=== PATIENT | male | born 1945 | race Caucasian/White ===

== ENCOUNTER → 2016-09-06 | Outpatient (CLI) | payer BC ==
[~2016-09-06] MED LIST: ACT15 PO; ASPCH81 PO; FINA5TAB PO; LSN25 PO; NAPR-1169 PO; OMEG10007 PO; SIMV40TA2 PO
[2016-09-06 09:21] LABS: BASO % 0.6 %; BASO ABS # 0.05 K/uL (0-0.2); COMPLETE YES; EOS % 2.1 %; HEMATOCRIT 37.7 % (42-52); IG% 0.1 %; LYMPH % 17.6 %; LYMPH ABS # 1.37 K/uL (1.2-3.4); MEAN CELL VOLUME 75.9 fL (80-100); MEAN CORPUSCULAR HEMOGLOBIN 25.6 pg (25-34); MEAN CORPUSCULAR HGB CONC 33.7 g/dl (32-36); MEAN PLATELET VOLUME 10.4 fL (7.4-10.4); MONO % 9.9 %; NEUT % 69.7 %; PLATELET COUNT 235 K/uL (130-400); RED BLOOD COUNT 4.97 M/uL (4.7-6.1); WHITE BLOOD COUNT 7.77 K/uL (4.8-10.8)
[2016-09-06 09:40] LABS: ALT/SGPT 19 U/L (12-78); AST/SGOT 14 U/L (15-37); BLOOD UREA NITROGEN 22 mg/dl (7-18); BUN/CREATININE RATIO 18.3 (10-20); CALCIUM 8.9 mg/dl (8.5-10.1); CARBON DIOXIDE 27 mmol/L (21-32); CHLORIDE 109 mmol/L (98-107); GLUCOSE 117 mg/dl (70-99); HDL CHOLESTEROL 50 mg/dl; POTASSIUM 4.1 mmol/L (3.5-5.1); SODIUM 141 mmol/L (136-145)
[2016-09-06 09:42] LABS: ESTIMATED AVERAGE GLUCOSE 146 mg/dl; HA1C FLAG Normal (Normal)
[2016-09-06 09:53] LABS: ALB/GLOB RATIO 0.7 (0.9-2); ALKALINE PHOSPHATASE 82 U/L (45-117); CHOLESTEROL 125 mg/dl (0-200); CHOLESTEROL/HDL RATIO 2.5; LDL CHOLESTEROL CALCULATED 56 mg/dl; PHOSPHORUS 2.1 mg/dl (2.5-4.9); TRIGLYCERIDES 93 mg/dl (0-150); URIC ACID 5.6 mg/dl (2.6-7.2); VERY LOW DENSITY LIPOPROT CALC 19 mg/dl
[2016-09-07 10:07] LABS: C-REACTIVE PROT HIGHSEN 27.2 MG/L
--- NOTE | 2016-09-12 10:57 | CODING QUERY MEDICAL NECESSITY ---
SUPPORTING DIAGNOSIS NEEDED Dr. Bradford, A supporting diagnosis is required for the test/procedure performed on this patient in order for us to be reimbursed by the patient's insurance. Please provide a supporting diagnosis for the following test/procedure listed below next to the test name along with your signature. *If there is no additional diagnosis for this patient that would support the following test/procedure please document that below next to the test/procedure. Test(s)/Procedure(s) that require a supporting diagnosis: * ([id number]) VITAMIN D ASSAY DIAGNOSIS: * ([id number]) VITAMIN B12 LEVEL DIAGNOSIS: * 25422 PSA DIAGNOSIS: * ([id number]) C-REACTIVE PROTEIN HIGH SENSITIVITY DIAGNOSIS: DATE OF SERVICE: 09/06/16 Provider Signature: Date: Thank you Jamie [facility] Information Management Once completed, please kindly fax back to [phone] For questions please call [phone]
== END | disposition home or self-care (01) ==
LOC: C.LAB 08:17
PROVIDERS: ATTEND Family Medicine
DX: E11.9 Type 2 diabetes mellitus without complications (principal)

== ENCOUNTER → 2016-09-21 | Outpatient (CLI) | payer BC ==
[2016-09-21 14:48] LABS: BASO % 0.6 %; BASO ABS # 0.05 K/uL (0-0.2); EOS % 2.2 %; HEMATOCRIT 41.5 % (42-52); IG% 0.4 %; LYMPH % 11.3 %; LYMPH ABS # 0.93 K/uL (1.2-3.4); MEAN CORPUSCULAR HEMOGLOBIN 25.5 pg (25-34); MEAN CORPUSCULAR HGB CONC 32.3 g/dl (32-36); MEAN PLATELET VOLUME 11.4 fL (7.4-10.4); MONO % 11.7 %; NEUT % 73.8 %; PLATELET COUNT 242 K/uL (130-400); RED BLOOD COUNT 5.25 M/uL (4.7-6.1)
[2016-09-21 17:04] LABS: PHOSPHORUS 2.2 mg/dl (2.5-4.9)
[2016-09-21 17:15] LABS: COMPLETE YES
[2016-09-23 16:45] LABS: FREE KAPPA/LAMBDA RATIO 1.13 (0.26-1.65); FREE LAMBDA 22.2 MG/L (5.7-26.3)
== END | disposition home or self-care (01) ==
LOC: C.LAB 12:36
PROVIDERS: ATTEND Family Medicine
DX: R53.83 Other fatigue (principal)

== ENCOUNTER → 2017-03-17 | Outpatient (CLI) | payer BC ==
[2017-03-17 12:11] LABS: BASO % 0.6 %; BASO ABS # 0.05 K/uL (0-0.2); COMPLETE YES; EOS % 1.5 %; HEMATOCRIT 41.9 % (42-52); IG% 0.4 %; LYMPH % 11.4 %; LYMPH ABS # 0.91 K/uL (1.2-3.4); MEAN CELL VOLUME 81.2 fL (80-100); MEAN CORPUSCULAR HEMOGLOBIN 26.6 pg (25-34); MEAN CORPUSCULAR HGB CONC 32.7 g/dl (32-36); MEAN PLATELET VOLUME 10.2 fL (7.4-10.4); MONO % 11.3 %; NEUT % 74.8 %; PLATELET COUNT 246 K/uL (130-400); RED BLOOD COUNT 5.16 M/uL (4.7-6.1)
[2017-03-17 12:27] LABS: ESTIMATED AVERAGE GLUCOSE 143 mg/dl; HA1C FLAG Normal (Normal)
[2017-03-17 12:36] LABS: ALT/SGPT 19 U/L (12-78); AST/SGOT 15 U/L (15-37); BLOOD UREA NITROGEN 26 mg/dl (7-18); BUN/CREATININE RATIO 23.6 (10-20); CALCIUM 9.2 mg/dl (8.5-10.1); CARBON DIOXIDE 27 mmol/L (21-32); CHLORIDE 107 mmol/L (98-107); GLUCOSE 113 mg/dl (70-99); POTASSIUM 4.4 mmol/L (3.5-5.1); SODIUM 139 mmol/L (136-145); URIC ACID 5.9 mg/dl (2.6-7.2)
[2017-03-17 12:44] LABS: ALB/GLOB RATIO 0.7 (0.9-2); ALKALINE PHOSPHATASE 88 U/L (45-117); CHOLESTEROL 127 mg/dl (0-200); CHOLESTEROL/HDL RATIO 2.6; HDL CHOLESTEROL 48 mg/dl; LDL CHOLESTEROL CALCULATED 66 mg/dl; PHOSPHORUS 2.2 mg/dl (2.5-4.9); TRIGLYCERIDES 67 mg/dl (0-150); VERY LOW DENSITY LIPOPROT CALC 13 mg/dl
[2017-03-20 10:07] LABS: C-REACTIVE PROT HIGHSEN 24.2 MG/L
== END | disposition home or self-care (01) ==
LOC: C.LAB 10:20
PROVIDERS: ATTEND Family Medicine
DX: R73.09 Other abnormal glucose (principal); E55.9 Vitamin D deficiency, unspecified; D51.9 Vitamin B12 deficiency anemia, unspecified

== ENCOUNTER → 2017-07-04 | Outpatient (CLI) | payer BC ==
--- NOTE | 2017-07-04 14:32 | DIAGNOSTIC IMAGING REPORT ---
CHEST 2 VIEWS ROUTINE CLINICAL HISTORY: Pneumonia. COMPARISON STUDY: Chest CT March 26, 2014. FINDINGS: Bilateral shoulder arthroplasties are incidentally noted. Lung volumes are normal. Lungs are clear. There is no pneumothorax or pleural effusion. There is no evidence for pulmonary edema. Cardiomediastinal silhouette is stable. IMPRESSION: No acute cardiopulmonary findings. Electronically signed by: Stephen Glynn M.D. 07/04/2017 2:30 PM Dictated Date/Time: 07/04/2017 2:30 PM
== END | disposition home or self-care (01) ==
LOC: C.RAD 14:06
PROVIDERS: ATTEND Surgery
DX: J18.9 Pneumonia, unspecified organism (principal)

== ENCOUNTER 2017-07-18 15:13 | Emergency (ER) | payer BC ==
[~2017-07-18] VITALS: Ht 167.6 cm; Wt 107.7 kg
[~2017-07-18 15:13] MED LIST changes: -OMEG10007 PO
[2017-07-18 15:16] VITALS: TEMP 36.9; Ht 167.6 cm; Wt 107.7 kg
--- NOTE | 2017-07-18 16:19 | EMERGENCY ROOM VISIT NOTE ---
History Report prepared by Vincent: Frandy Mahan Under the Supervision of: Dr. Uriah Smith M.D. First contact with patient: 15:48 Chief Complaint: HEADACHE Stated Complaint: CHILLS,HEADACHE,NUMBNESS IN BACK OF HEAD History of Present Illness The patient is a 72 year old white male with a past medical history of HTN, HLD , prostate issues, and DM who presents to the ED with a cc of a persistent headache beginning yesterday. Positive left back/shoulder pain that is worse with breathing, light headedness, occasional chest discomfort, chills, numbness in the back of his head, eyes burning, tingling in his forehead, sore throat. Negative urinary or bowel incontinence, any recent falls, and any history of migraines. He was treated for walking pneumonia on June 23, and yesterday he saw his PCP, and they ordered an MRI for him in two days. He has not been lifting anything heavy recently. He went to a chiropractor, and did they not help his back pain. He takes a baby aspirin, Hytrin, lisinopril, and alprazolam. Source of History: patient Onset: yesterday Position: head Quality: ache Timing: other (persistent) Associated Symptoms: + chills, + sorethroat, + back pain, + numbness Note: Associated symptoms: Light headed, chest discomfort, eyes burning, tingling forehead Review of Systems See HPI for pertinent positives and negatives. A total of ten systems were reviewed and were otherwise negative. Past Medical & Surgical Medical Problems: (1) DM (diabetes mellitus) (2) HLD (hyperlipidemia) (3) HTN (hypertension) Social History Smoking Status: Former Smoker Marital Status: Housing Status: lives with family Occupation Status: retired Current/Historical Medications Scheduled Aspirin (Aspirin Ec), 81 MG PO QPM Cholecalciferol (Vitamin D3), 2,000 INTER.UNIT PO DAILY Cyanocobalamin (Vitamin B12), 1,000 MCG PO QAM Ferrous Sulfate (Iron), 325 MG PO QAM Finasteride (Proscar), 5 MG PO QPM Fish Oil (Leland-3), 1 CAP PO QAM Lisinopril (Lisinopril), 2.5 MG PO QPM Multiple Vitamins W/ Minerals (Macular Health Formula), 1 CAP PO QAM Naproxen (Naprosyn), 500 MG PO BID Pioglitazone Hcl (Pioglitazone Hcl), 15 MG PO QAM Simvastatin (Zocor), 20 MG PO QPM Terazosin (Hytrin), 5 MG PO HS Allergies Coded Allergies: Oxycodone (Verified Adverse Reaction, Unknown, VOMITING, 07/18/17) Physical Exam Vital Signs Date Time Temp Pulse Resp B/P (MAP) Pulse Ox O2 Delivery O2 Flow Rate FiO2 07/18/17 17:20 64 14 149/84 98 Room Air 07/18/17 16:41 70 07/18/17 16:24 97 Room Air 07/18/17 15:16 36.9 70 20 155/88 97 Room Air Physical Exam GENERAL: Awake, alert, well-appearing, NAD HENT: Normocephalic, atraumatic. No numbness in the back of his head. EYES: Normal conjunctiva. Sclera non-icteric. Wearing eye glasses. No carotid bruit NECK: Supple. No nuchal rigidity. FROM. RESPIRATORY: CTAB, no rhonchi, wheezing, crackles CARDIAC: RRR, no MRG ABDOMEN: Soft, NTND, BS+ MSK: Mild reproducible left posterior chest wall pain without ecchymosis, swelling, crepitus, or step offs, no LE edema NEURO: CN 2-12 intact, 5/5 upper and lower extremity strength, no dysmetria, no drift, good finger to nose, no sensory deficits. SKIN: No rash or jaundice noted. Medical Decision & Procedures ER Provider Diagnostic Interpretation: Radiology results as stated below per my review and radiologist interpretation: HEAD WITHOUT CONTRAST (CT) CLINICAL HISTORY: 72 years-old Male with Evaluate for hemorrhage or pathology. Acute head injury TECHNIQUE: Multiple axial CT images of the head were obtained without contrast. A dose lowering technique was utilized adhering to the principles of ALARA. CT DOSE: 537.48 mGy.cm COMPARISON: CT head 03/12/2011. FINDINGS: No acute intracranial hemorrhage, midline shift, intracranial mass, hydrocephalus, territorial ischemia or abnormal extra-axial collection. Mild atrophy. Minimal periventricular white matter low attenuation suggests a degree of chronic microvascular ischemic changes. The calvarium is intact. 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 The paranasal sinuses, mastoid air cells, and middle ear cavities are otherwise clear. IMPRESSION: No acute intracranial abnormality. The above report was generated using voice recognition software. It may contain grammatical, syntax or spelling errors. Electronically signed by: Chris Ramirez M.D. 07/18/2017 4:39 PM Dictated Date/Time: 07/18/2017 4:36 PM CHEST 2 VIEWS ROUTINE CLINICAL HISTORY: 72 years-old Male presenting with EVALUATE HEADACHE. TECHNIQUE: PA and lateral views of the chest were obtained. COMPARISON: 07/04/2012. FINDINGS: Atherosclerosis of the aortic arch. Cardiac silhouette normal in size. Lungs and pleural spaces clear. Degenerative changes of the thoracic spine. Bilateral shoulder arthroplasties. Retrocardiac density may relate to left atrial enlargement or hiatal hernia. IMPRESSION: 1. No acute cardiopulmonary disease. Electronically signed by: Jose Stiles M.D. 07/18/2017 4:39 PM Dictated Date/Time: 07/18/2017 4:38 PM Laboratory Results 07/18/17 16:18 Red Blood Count 5.03, Mean Corpuscular Volume 80.5, Mean Corpuscular Hemoglobin 26.8, Mean Corpuscular Hemoglobin Concent 33.3, Mean Platelet Volume 10.8, Neutrophils (%) (Auto) 69.7, Lymphocytes (%) (Auto) 15.7, Monocytes (%) (Auto) 13.3, Eosinophils (%) (Auto) 0.8, Basophils (%) (Auto) 0.3, Neutrophils # (Auto ) 4.52, Lymphocytes # (Auto) 1.02, Monocytes # (Auto) 0.86, Eosinophils # (Auto ) 0.05, Basophils # (Auto) 0.02 07/18/17 16:18 Test 07/18/17 16:18 White Blood Count 6.48 K/uL (4.8-10.8) Red Blood Count 5.03 M/uL (4.7-6.1) Hemoglobin 13.5 g/dL (14.0-18.0) Hematocrit 40.5 % (42-52) Mean Corpuscular Volume 80.5 fL (80-100) Mean Corpuscular Hemoglobin 26.8 pg (25-34) Mean Corpuscular Hemoglobin Concent 33.3 g/dl (32-36) Platelet Count 236 K/uL (130-400) Mean Platelet Volume 10.8 fL (7.4-10.4) Neutrophils (%) (Auto) 69.7 % Lymphocytes (%) (Auto) 15.7 % Monocytes (%) (Auto) 13.3 % Eosinophils (%) (Auto) 0.8 % Basophils (%) (Auto) 0.3 % Neutrophils # (Auto) 4.52 K/uL (1.4-6.5) Lymphocytes # (Auto) 1.02 K/uL (1.2-3.4) Monocytes # (Auto) 0.86 K/uL (0.11-0.59) Eosinophils # (Auto) 0.05 K/uL (0-0.5) Basophils # (Auto) 0.02 K/uL (0-0.2) RDW Standard Deviation 53.8 fL (36.4-46.3) RDW Coefficient of Variation 18.7 % (11.5-14.5) Immature Granulocyte % (Auto) 0.2 % Immature Granulocyte # (Auto) 0.01 K/uL (0.00-0.02) Anion Gap 7.0 mmol/L (3-11) Est Creatinine Clear Calc Drug Dose 67.2 ml/min Estimated GFR () 75.4 Estimated GFR (Non- 65.1 BUN/Creatinine Ratio 15.5 (10-20) Calcium Level 9.6 mg/dl (8.5-10.1) Chemistry Specimen Hemolysis Lyme Disease IgG Antibody NEG (NEG) Lyme Disease IgM Antibody NEG (NEG) Laboratory results reviewed by me ECG Indication: back/shoulder pain, other (headache) Rate (beats per minute): 59 Rhythm: sinus bradycardia Findings: 1st degree AV block, other (T-wave flattening in lead 3. No other STS changes or TWI) Change: Patient's electrocardiogram interpreted by me. ED Course 1548: The patient was evaluated in room B2. A complete history and physical exam was performed. 1743: I reevaluated the patient. Discussed results and discharge instructions: he verbalized understanding and agreement. He will keep his MRI appointment. The patient is ready for discharge. Medical Decision The patient is a 72 year old white male with a past medical history of HTN, HLD , prostate issues, and DM who presents to the ED with a cc of a persistent headache beginning yesterday. Differential diagnosis: Etiologies such as migraine headache, meningitis, sinusitis, CO exposure, ICH, SAH, infection, tumor, headache, sinus thrombosis, arterial dissection, as well as others were entertained. Patient was seen and evaluated the bedside. Patient was complaining of some mild discomfort which he described as some tingling to the posterior occiput. Patient denies any recent falls. Also patient also does complain of some left posterior rib type pain. Patient also did complain of some sore throat was concerned about a possible pneumonia. Patient has recently been seen by his outpatient provider does have a pending MRI of the brain. Patient was also recently treated for possible walking pneumonia as he self described it with Levaquin as well as one other antibiotic. On exam the patient has a nonfocal neurologic exam. The patient has no numbness or tingling to the posterior head or neck. Patient has no signs of meningismus or nuchal rigidity. Patient otherwise fairly well-appearing. Patient currently denies any headache even without treatment. Patient does wear glasses and is unsure as to the last time he did see an eye doctor. He was told that he should follow-up with them to make sure that that is not part of his issue. Patient's chest x-ray was clear. Lyme's negative. The patient had no focal signs of any traumatic injury to the posterior chest wall. Given the patient has normal blood work, a nonischemic EKG, and a negative CT of the brain with a nonfocal neurologic exam the patient is suitable for outpatient follow-up and treatment at this time. There may be an element of anxiety as the patient is preoccupied about a number of complaints. Patient again has a fairly unremarkable exam. Patient did state that he was concerned about his ability to stay asleep at night. Patient was told to continue take his outpatient medications and follow-up with his PCP for this issue if it persists. Patient was given strict follow-up, discharge, and return precautions. All questions were answered. Patient was deemed suitable for outpatient follow-up at this time. Patient agreed with the plan of care and was safely discharged home. Medication Reconcilliation Current Medication List: was personally reviewed by me Blood Pressure Screening Patient's blood pressure: Elevated blood pressure Blood pressure disposition: Referred to PCP Impression Primary Impression: Anxiety Additional Impression: Sore throat Scribe Attestation The scribe's documentation has been prepared under my direction and personally reviewed by me in its entirety. I confirm that the note above accurately reflects all work, treatment, procedures, and medical decision making performed by me. Departure Information Dispostion Home / Self-Care Referrals No Doctor, Assigned (PCP) Patient Instructions My [facility], Sore Throat - [facility], Sore Throats Self Care Additional Instructions Please return to the emergency department if you have worsening or recurrent symptoms not amenable to at-home treatment. Please call for a follow-up appointment with her primary care physician. Please take your medications as prescribed. If you have other concerns and/or complaints please feel free to also call your primary care physician's office or return the ED for further evaluation, management, and treatment. You may take 600 mg Ibuprofen every 6 hours as needed for pain with food for no more than 2 consecutive days. You may take tylenol 1000 mg every 6 hours as needed for pain. You may take motrin and tylenol separately or at the same time. Please keep your follow up appointments. Keep your appointment for your MRI. Take your medications as prescribed. You have been examined and treated today on an emergency basis only. This is not a substitute for, or an effort to provide, complete comprehensive medical care. It is impossible to recognize and treat all injuries or illnesses in a single emergency department visit. It is therefore important that you follow up closely with [facility], your PCP, and/or your specialist(s). Call as soon as possible for an appointment. Thank you for your time and consideration. I look forward to speaking with you again soon. Please don't hesitate to call us if you have any questions. Problem Qualifiers
[2017-07-18 16:24] VITALS: O2SAT 97
[2017-07-18 16:38] LABS: BASO % 0.3 %; BASO ABS # 0.02 K/uL (0-0.2); EOS % 0.8 %; EOS ABS # 0.05 K/uL (0-0.5); HEMATOCRIT 40.5 % (42-52); HEMOGLOBIN 13.5 g/dL (14.0-18.0); IG# 0.01 K/uL (0.00-0.02); LYMPH % 15.7 %; LYMPH ABS # 1.02 K/uL (1.2-3.4); MEAN CELL VOLUME 80.5 fL (80-100); MEAN CORPUSCULAR HEMOGLOBIN 26.8 pg (25-34); MEAN CORPUSCULAR HGB CONC 33.3 g/dl (32-36); MEAN PLATELET VOLUME 10.8 fL (7.4-10.4); MONO % 13.3 %; MONO ABS # 0.86 K/uL (0.11-0.59); NEUT % 69.7 %; NEUT ABS # 4.52 K/uL (1.4-6.5); PLATELET COUNT 236 K/uL (130-400); RED CELL DISTRIBUTION WIDTH CV 18.7 % (11.5-14.5); RED CELL DISTRIBUTION WIDTH SD 53.8 fL (36.4-46.3); WHITE BLOOD COUNT 6.48 K/uL (4.8-10.8)
--- NOTE | 2017-07-18 16:40 | DIAGNOSTIC IMAGING REPORT ---
HEAD WITHOUT CONTRAST (CT) CLINICAL HISTORY: 72 years-old Male with Evaluate for hemorrhage or pathology. Acute head injury TECHNIQUE: Multiple axial CT images of the head were obtained without contrast. A dose lowering technique was utilized adhering to the principles of ALARA. CT DOSE: 537.48 mGy.cm COMPARISON: CT head 03/12/2011. FINDINGS: No acute intracranial hemorrhage, midline shift, intracranial mass, hydrocephalus, territorial ischemia or abnormal extra-axial collection. Mild atrophy. Minimal periventricular white matter low attenuation suggests a degree of chronic microvascular ischemic changes. The calvarium is intact. 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 The paranasal sinuses, mastoid air cells, and middle ear cavities are otherwise clear. IMPRESSION: No acute intracranial abnormality. The above report was generated using voice recognition software. It may contain grammatical, syntax or spelling errors. Electronically signed by: Chris Ramirez M.D. 07/18/2017 4:39 PM Dictated Date/Time: 07/18/2017 4:36 PM
--- NOTE | 2017-07-18 16:41 | DIAGNOSTIC IMAGING REPORT ---
CHEST 2 VIEWS ROUTINE CLINICAL HISTORY: 72 years-old Male presenting with EVALUATE HEADACHE. TECHNIQUE: PA and lateral views of the chest were obtained. COMPARISON: 07/04/2012. FINDINGS: Atherosclerosis of the aortic arch. Cardiac silhouette normal in size. Lungs and pleural spaces clear. Degenerative changes of the thoracic spine. Bilateral shoulder arthroplasties. Retrocardiac density may relate to left atrial enlargement or hiatal hernia. IMPRESSION: 1. No acute cardiopulmonary disease. Electronically signed by: Jose Stiles M.D. 07/18/2017 4:39 PM Dictated Date/Time: 07/18/2017 4:38 PM
[2017-07-18 17:00] LABS: CALCIUM 9.6 mg/dl (8.5-10.1); CREATININE 1.11 mg/dl (0.60-1.40); POTASSIUM 4.1 mmol/L (3.5-5.1)
[2017-07-18] MEDS ORDERED: CHOL2000 PO (17:12)
[2017-07-18] MEDS ORDERED: LISI2.5T5 PO (17:12)
[2017-07-18] MEDS ORDERED: PIOG1TAB25 PO (17:12)
[2017-07-18] MEDS ORDERED: TERA5CAP PO (17:12)
[2017-07-18] MEDS ORDERED: MULT1CAP53 PO (17:12)
[2017-07-18] MEDS ORDERED: SIMV20TA5 PO (17:12)
[2017-07-18] MEDS ORDERED: CYAN100020 PO (17:12)
[2017-07-18] MEDS ORDERED: FERR1TAB23 PO (17:12)
[2017-07-18] MEDS ORDERED: ASPI81TA28 PO (17:12)
[2017-07-18 18:39] VITALS: BP 143/77; PULSE 57; O2SAT 97
[2017-07-18] MEDS ORDERED: OMEG10007 PO (22:02)
== END 2017-07-18 18:40 | disposition home or self-care (01) ==
LOC: C.EDB 15:15
DX: F41.9 Anxiety disorder, unspecified (principal); J02.9 Acute pharyngitis, unspecified; I10 Essential (primary) hypertension; E78.5 Hyperlipidemia, unspecified; E11.9 Type 2 diabetes mellitus without complications; Z87.891 Personal history of nicotine dependence; Z79.82 Long term (current) use of aspirin; Z79.899 Other long term (current) drug therapy; Z88.5 Allergy status to narcotic agent

== ENCOUNTER → 2017-07-20 | Outpatient (CLI) | payer BC ==
[~2017-07-20] MED LIST changes: -ACT15 PO; -ASPCH81 PO; +ASPI81TA28 PO; +CHOL2000 PO; +CYAN100020 PO; +FERR1TAB23 PO; +GADAVIST IV PRN; +LISI2.5T5 PO; -LSN25 PO; +MULT1CAP53 PO; +OMEG10007 PO; +PIOG1TAB25 PO; +SIMV20TA5 PO; -SIMV40TA2 PO; +TERA5CAP PO
--- NOTE | 2017-07-20 16:46 | DIAGNOSTIC IMAGING REPORT ---
Brain MRI WITH AND WITHOUT CONTRAST HISTORY: Headache. TECHNIQUE: Multiplanar multisequence MRI of the brain was performed both before and after the intravenous administration of contrast. COMPARISON STUDY: Head CT 07/18/2017. FINDINGS: There are no areas of restricted diffusion to suggest acute infarction. The midline structures are intact. 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 Otherwise, the paranasal sinuses are clear. The mastoid air cells are clear. The ventricles and sulci are within normal limits for age. There is no mass, hematoma, midline shift. The major vascular flow-voids at the skull base are well maintained. Postcontrast sequences show no areas of abnormal enhancement. IMPRESSION: No acute intracranial abnormality. Electronically signed by: Louie Hawley M.D. 07/20/2017 4:45 PM Dictated Date/Time: 07/20/2017 4:38 PM
== END | disposition home or self-care (01) ==
LOC: C.MRI 15:32
PROVIDERS: ATTEND Family Medicine
DX: G44.59 Other complicated headache syndrome (principal)

== ENCOUNTER → 2017-08-10 | Outpatient (CLI) | payer BC ==
[~2017-08-10] MED LIST changes: -GADAVIST IV PRN
[2017-08-10 09:59] LABS: ALKALINE PHOSPHATASE 96 U/L (45-117); TOTAL PROTEIN 7.8 gm/dl (6.4-8.2); TRANSFERRIN 259 mg/dl (200-360)
[2017-08-10 10:00] LABS: HEMOGLOBIN A1C 6.2 % (4.5-5.6)
[2017-08-10 10:39] LABS: HEMATOCRIT 44.7 % (42-52); HEMOGLOBIN 14.8 g/dL (14.0-18.0); MEAN CELL VOLUME 83.4 fL (80-100); MEAN CORPUSCULAR HEMOGLOBIN 27.6 pg (25-34); MEAN CORPUSCULAR HGB CONC 33.1 g/dl (32-36); MEAN PLATELET VOLUME 11.3 fL (7.4-10.4); PLATELET COUNT 189 K/uL (130-400); RED CELL DISTRIBUTION WIDTH CV 19.9 % (11.5-14.5); RED CELL DISTRIBUTION WIDTH SD 60.5 fL (36.4-46.3); WHITE BLOOD COUNT 7.24 K/uL (4.8-10.8)
[2017-08-10 11:13] LABS: BLOOD UREA NITROGEN 21 mg/dl (7-18); GLUCOSE 128 mg/dl (70-99)
[2017-08-10 11:19] LABS: CALCIUM 9.4 mg/dl (8.5-10.1); CARBON DIOXIDE 27 mmol/L (21-32); POTASSIUM 3.7 mmol/L (3.5-5.1); SODIUM 138 mmol/L (136-145)
[2017-08-10 11:20] LABS: ALBUMIN 3.4 gm/dl (3.4-5.0); ALT/SGPT 23 U/L (12-78); AST/SGOT 13 U/L (15-37); CHOLESTEROL 131 mg/dl (0-200); URIC ACID 6.1 mg/dl (2.6-7.2)
[2017-08-10 11:29] LABS: LDL CHOLESTEROL CALCULATED 57 mg/dl
== END | disposition home or self-care (01) ==
LOC: C.LAB 07:30
PROVIDERS: ATTEND Family Medicine
DX: R73.09 Other abnormal glucose (principal); E55.9 Vitamin D deficiency, unspecified; D51.9 Vitamin B12 deficiency anemia, unspecified; E78.9 Disorder of lipoprotein metabolism, unspecified; R53.83 Other fatigue

== ENCOUNTER → 2017-08-30 | Outpatient (CLI) | payer BC ==
--- NOTE | 2017-08-30 14:01 | DIAGNOSTIC IMAGING REPORT ---
C-SPINE ROUTINE 4 OR 5 VIEWS CLINICAL HISTORY: 72 years-old Male presenting with chronic back pain. TECHNIQUE: Lateral, bilateral oblique, frontal, and open-mouth odontoid views of the cervical spine were obtained. COMPARISON: None. FINDINGS: Partially visualized right shoulder arthroplasty. Normal cervical lordosis. Vertebral bodies maintain normal height and alignment. The C7 vertebral body is incompletely visualized limiting evaluation in this region. Intervertebral disc height loss suggested at C6-7. Small disc osteophyte complexes noted at C5-6 and C6-7. No radiographic evidence of posterior bony spurring. Osteopenia suggested. Mild osseous neural foraminal narrowing suggested at bilaterally at C4-5 and on the left at C5-6. Lateral masses of C1 articulate normally with C2. Normal predental interval. No prevertebral soft tissue swelling. No radiographic evidence of a fracture or acute subluxation. IMPRESSION: 1. Degenerative changes in the lower cervical spine at C5-6 and C6-7. Osseous neural foraminal narrowing suggested on the bilaterally at C4-5 and on the left at C5-6 2. No radiographic evidence of acute osseous injury. 3. Suggestion of osteopenia. Electronically signed by: Jose Stiles M.D. 08/30/2017 2:00 PM Dictated Date/Time: 08/30/2017 1:56 PM
--- NOTE | 2017-08-30 14:09 | DIAGNOSTIC IMAGING REPORT ---
THORACIC SPINE 3 VIEWS ROUTINE HISTORY: Pain PT WENT TO ULTR1,CPL AFTER PLEASE,TIA,CARDIOMEGALY,BACK PAIN COMPARISON: None. FINDINGS: There is no fracture. No subluxation. Moderate degenerative disc changes throughout. IMPRESSION: No fracture or subluxation within the thoracic spine. Moderate degenerative change The above report was generated using voice recognition software. It may contain grammatical, syntax or spelling errors. Electronically signed by: Flo Sarmiento M.D. 08/30/2017 2:08 PM Dictated Date/Time: 08/30/2017 2:05 PM
--- NOTE | 2017-08-30 14:30 | DIAGNOSTIC IMAGING REPORT ---
ULTRASOUND OF THE CAROTID ARTERIES CLINICAL HISTORY: Transient ischemic attack COMPARISON STUDY: None. TECHNIQUE: Real-time, grayscale, and color Doppler sonography of the carotid arteries was performed. Imaging reviewed in the transverse and longitudinal planes. NASCET criteria was utilized for stenosis calcification. FINDINGS: There is mild atherosclerotic plaque present . The peak systolic velocity within the right internal carotid artery is 64 cm/sec. The systolic velocity ratio of right internal to common carotid artery is 0.6. The peak systolic velocity within the left internal carotid artery is 59 cm/sec. The systolic velocity ratio left internal to common carotid artery is 0.5. Antegrade flow is seen in the vertebral arteries. The external carotid arteries are patent. Blood pressure in the right arm measured 117 mm/Hg. Blood pressure in the left arm measured 135 mm/Hg. IMPRESSION: No evidence of hemodynamically significant carotid stenosis. Electronically signed by: [place] M.D. 08/30/2017 2:28 PM Dictated Date/Time: 08/30/2017 2:27 PM
--- NOTE | 2017-08-30 16:06 | ECHOCARDIOGRAM REPORT ---
*NOTICE TO RECEIVING CONSTITUTION PARTY AGENCY This information is strictly Confidential and protected under [place] law. [place] law prohibits you from making any further disclosure of this information unless further disclosure is expressly permitted by the written consent of the person to whom it pertains or is authorized by law. A general authorization for the release of medical or other information is not sufficient for this purpose. Hospital accepts no responsibility if the information is made available to any other person, INCLUDING THE PATIENT. Interpretation Summary * Name: MELI SEALS Study Date: 08/30/2017 01:51 PM BP: 136/68 mmHg * Patient Location: [facility] HR: 75 * : 1945 (M/d/yyyy) Gender: Male Height: 71 in * Age: 72 yrs Ethnicity: CA Weight: 225 lb * Ordering Physician: Alfredo Bradford * Referring Physician: Alfredo Bradford * Performed By: Tess Hooper RDCS * * Reason For Study: TIA, Cardiomegaly * BSA: 2.2 m2 * -- Conclusions -- * Left ventricular systolic function is normal. * Diastolic dysfunction, Grade III, consistent with marked congestive heart failure. * Injection of contrast documented no interatrial shunt. * Right ventricular systolic pressure is normal. Procedure Details * A complete two-dimensional transthoracic echocardiogram was performed (2D, M-mode, Doppler and color flow Doppler). * A saline contrast injection was performed to assess for cardiac shunting. * The injection was performed through an intravenous line in the left arm. * The attending nurse who injected the saline contrast was Harmony Wright RN. * A total of 20 cc of agitated saline was given. Left Ventricle * The left ventricle is normal in size. * There is normal left ventricular wall thickness. * Ejection Fraction = 60-65%. * Left ventricular systolic function is normal. * Diastolic dysfunction, Grade III, consistent with marked congestive heart failure. * The left ventricular wall motion is normal. Right Ventricle * The right ventricle is normal size. * The right ventricular systolic function is normal as assessed by tricuspid annular plane systolic excursion (TAPSE) (normal >1.5 cm). Atria * The left atrial size is normal. * Right atrial size is normal. * The interatrial septum is intact with no evidence for an atrial septal defect. * Injection of contrast documented no interatrial shunt. Mitral Valve * The mitral valve anatomy is normal. * Significant mitral regurgitation is absent. Tricuspid Valve * The tricuspid valve anatomy is normal. * There is trace tricuspid regurgitation. * Right ventricular systolic pressure is normal. Aortic Valve * The aortic valve is normal in structure and function. * The aortic valve is trileaflet. * No hemodynamically significant valvular aortic stenosis. * There is no significant aortic regurgitation. Pulmonic Valve * The pulmonic valve is not well seen, but is grossly normal. Great Vessels * The aortic root is normal size. Pericardium/Pleural * There is no pericardial effusion. Great Vessels * Normal inferior vena cava diameter and respiratory variation suggests normal central venous pressure. MMode 2D Measurements and Calculations IVSd 10 cm IVSs 1.0 cm LVIDd 5.3 cm LVIDs 3.4 cm LVPWd 1.1 cm LVPWs 1.5 cm IVS/LVPW 0.92 FS 37.0 % EDV(Teich) 137.1 ml ESV(Teich) 46.1 ml EF(Teich) 66.4 % EDV(cubed) 151.4 ml ESV(cubed) 37.9 ml EF(cubed) 75.0 % % IVS thick 5.1 % % LVPW thick 42.1 % LV mass(C)d 212.9 grams LV mass(C)dI 96.0 grams/m\S\2 LV mass(C)s 143.7 grams LV mass(C)sI 64.8 grams/m\S\2 SV(Teich) 91.1 ml SI(Teich) 41.1 ml/m\S\2 SV(cubed) 113.6 ml SI(cubed) 51.2 ml/m\S\2 Ao root diam 3.2 cm Ao root area 7.9 cm\S\2 ACS 2.2 cm LA dimension 4.1 cm LA/Ao 1.3 LVAd ap4 34.0 cm\S\2 LVLd ap4 8.8 cm EDV(MOD-sp4) 112.3 ml EDV(sp4-el) 111.3 ml LVAs ap4 18.3 cm\S\2 LVLs ap4 7.5 cm ESV(MOD-sp4) 41.5 ml ESV(sp4-el) 38.1 ml EF(MOD-sp4) 63.0 % EF(sp4-el) 65.8 % LVAd ap2 29.8 cm\S\2 LVLd ap2 8.3 cm EDV(MOD-sp2) 89.6 ml EDV(sp2-el) 90.4 ml LVAs ap2 14.4 cm\S\2 LVLs ap2 6.0 cm ESV(MOD-sp2) 32.9 ml ESV(sp2-el) 29.5 ml EF(MOD-sp2) 63.3 % EF(sp2-el) 67.4 % LVLd %diff -6.05 % EDV(MOD-bp) 103.0 ml LVLs %diff -24.29 % ESV(MOD-bp) 41.1 ml EF(MOD-bp) 60.1 % SV(MOD-sp4) 70.7 ml SI(MOD-sp4) 31.9 ml/m\S\2 SV(MOD-sp2) 56.7 ml SI(MOD-sp2) 25.6 ml/m\S\2 SV(MOD-bp) 61.9 ml SI(MOD-bp) 27.9 ml/m\S\2 SV(sp4-el) 73.2 ml SI(sp4-el) 33.0 ml/m\S\2 SV(sp2-el) 60.9 ml SI(sp2-el) 27.5 ml/m\S\2 Doppler Measurements and Calculations MV E max debra 82.5 cm/sec MV A max debra 89.0 cm/sec MV E/A 0.93 MV dec time 0.25 sec Ao V2 max 144.9 cm/sec Ao max PG 8.4 mmHg Ao max PG (full) 3.1 mmHg LV V1 max PG 5.3 mmHg LV V1 max 115.5 cm/sec PA V2 max 120.4 cm/sec PA max PG 5.8 mmHg TR max debra 221.7 cm/sec
== END | disposition home or self-care (01) ==
LOC: C.ULTR 13:23
PROVIDERS: ATTEND Family Medicine
DX: G45.9 Transient cerebral ischemic attack, unspecified (principal); I51.7 Cardiomegaly; M54.9 Dorsalgia, unspecified

== ENCOUNTER → 2018-01-04 | Outpatient (CLI) | payer BC ==
[~2018-01-04] MED LIST changes: +LISI-1116 PO; -LISI2.5T5 PO; -NAPR-1169 PO; +NAPR-22 PO
[2018-01-04 09:35] LABS: HEMOGLOBIN A1C 6.5 % (4.5-5.6)
[2018-01-04 09:50] LABS: URIC ACID 5.2 mg/dl (2.6-7.2)
== END | disposition home or self-care (01) ==
LOC: C.LABSPEC 08:20
PROVIDERS: ATTEND Family Medicine
DX: R73.09 Other abnormal glucose (principal); E55.9 Vitamin D deficiency, unspecified; D51.9 Vitamin B12 deficiency anemia, unspecified; E78.9 Disorder of lipoprotein metabolism, unspecified; R53.83 Other fatigue

== ENCOUNTER 2023-08-01 15:24 | Inpatient (IN) ==
--- NOTE | 2023-08-01 15:33 | ED Triage Note ---
Date of Service August 01, 2023 Provider in Triage Author: Priti Kaur History of Present Illness This patient was briefly evaluated while in triage. An abbreviated physical exam was performed. This patient is a 78-year-old Male who presents to the ED for evaluation of chest and back pain. He states that he had some pain yesterday but it has been more severe this afternoon. Reports sob, dizziness, and pain in the right arm. Denies cardiac history. He vomited once before coming here. Physical Exam VITALS: Vitals are noted on the nurse's note and reviewed by myself. GENERAL: This is an 78-year-old male, in no acute distress, uncomfortable appearing. SKIN: The skin was without rashes, erythema, edema, or bruising. HEAD: Normocephalic atraumatic. EARS: External auditory canals clear, tympanic membranes pearly johnson without erythema or effusion bilaterally. EYES: Pupils equal round and reactive to light and accommodation. Conjunctivae without injection, sclerae without icterus. Extraocular movements intact. NOSE: Patent, turbinates without inflammation or discharge. No sinus tenderness. MOUTH: Mucous membranes moist. Tonsils are not enlarged. Pharynx without erythema or exudate. Uvula midline. Airway patent. Tongue does not deviate. NECK: Supple without nuchal rigidity. No lymphadenopathy. No thyromegaly. Cervical spine is nontender. No JVD. HEART: Regular rate and rhythm without murmurs gallops or rubs. LUNGS: Clear to auscultation bilaterally without wheezes, rales or rhonchi. No dullness to percussion. No retractions or accessory muscle use. ABDOMEN: Positive bowel sounds x 4. Normal tympanic percussion. Soft, nontender, without masses or organomegaly. High sign negative. No guarding or rebound tenderness. MUSCULOSKELETAL: No muscle atrophy, erythema, or edema noted. Full range of motion without joint tenderness in all extremities. No tenderness to palpation. Normal gait. Strength 5/5 throughout. NEURO: Patient was alert and oriented to person place and time. Normal sensation to light and sharp touch. Deep tendon reflexes 2+ throughout. No focal neurological deficits. Initial orders for labs and / or imaging were placed and patient was placed in the waiting area until a bed is available. Please see further documentation for the full ED course.
[2023-08-01 16:10] LABS: Basophils # (auto) 0.07 K/uL (0.00-0.20); Basophils % (auto) 0.7 %; Eosinophils # (auto) 0.19 K/uL (0.00-0.50); Hematocrit (blood only) 46.8 % (42.0-52.0); Hemoglobin 14.5 g/dl (14.0-18.0); Immature Granulocytes # (auto) 0.07 K/uL (0.01-0.20); Immature Granulocytes % (auto) 0.7 %; Lymphocytes # (auto) 1.71 K/uL (1.20-3.40); Lymphocytes % (auto) 17.8 %; Mean Corpuscular Hemoglobin 26.4 pg (25.0-34.0); Mean Corpuscular Volume 85.1 fL (80.0-100.0); Mean Platelet Volume 11.1 fL (9.4-12.4); Monocytes % (auto) 12.5 %; Neutrophils # (auto) 6.34 K/uL (1.40-6.50); Neutrophils % (auto) 66.3 %; Platelet Count 229 K/uL (130-400); RDW Coefficient of Variation 16.6 % (11.5-14.5); RDW Standard Deviation 51.1 fL (36.4-46.3); White Blood Count 9.58 K/ul (4.8-10.8)
--- NOTE | 2023-08-01 16:11 | XRay Report ---
XR chest 1V portable CLINICAL HISTORY: Chest pain, nonspecific COMPARISON STUDY: Chest CT August 25, 2021. Chest radiograph May 03, 2022. FINDINGS: Bilateral shoulder arthroplasties are incidentally noted. There is no pneumothorax or pleur al effusion. Cardiomegaly is unchanged. Mediastinal contours are stable. There is no evidence for pul monary edema. There is no consolidation to suggest pneumonia. IMPRESSION: No acute cardiopulmonary findings. No change in appearance of the chest. ACT 112: Negative or not required by law. Electronically signed by: Stephen Glynn M.D. 08/01/2023 4:09 PM
[2023-08-01] MEDS: ASPIRIN 81 MG CHEW PO STA (16:21)
[2023-08-01 16:26] LABS: Albumin Globulin Ratio 0.8 (0.9-2); Albumin Level 3.7 gm/dl (3.4-5.0); BUN Creatinine Ratio 19.6 (10-20); Bilirubin,Total 0.5 mg/dl (0.2-1.0); Calcium 9.7 mg/dl (8.6-10.3); Creatinine Clr Calc Pharmacy 71.7 ml/min; Est GFR (African American) 75.6 ml/min; Est GFR (Non-African American) 65.2 ml/min; Globulin 4.4 gm/dl (2.5-4.0); Potassium 4.1 mmol/L (3.5-5.1); Total Protein 8.1 gm/dl (6.0-8.3)
[2023-08-01 16:37] LABS: Troponin I High Sensitivity 305.4 pg/ml (0-20)
[2023-08-01] MEDS: OPTIRAY 320 125ml IV ONE (16:37)
--- NOTE | 2023-08-01 16:57 | CT Scan Report ---
CT ANGIOGRAPHY OF THE CHEST, PULMONARY EMBOLUS PROTOCOL CLINICAL HISTORY: Chest pain. History of pulmonary emboli. COMPARISON STUDY: Chest CT August 25, 2021. Chest radiograph performed earlier today. TECHNIQUE: Following IV administration of 117 mL of Optiray, helical axial images of the chest were o btained utilizing the pulmonary embolus protocol. Maximal intensity projections and sagittal and cor onal reformats were viewed on an independent 3D workstation. IV contrast was administered without co mplication. Automated exposure control was utilized for the study. A dose lowering technique was ut ilized adhering to the principles of ALARA. CT DOSE: 896.29 mGy.cm FINDINGS: No pulmonary emboli are identified. There is no thoracic aortic dissection. There is mild dilatation of the central pulmonary arteries. Mild cardiomegaly. No pericardial effusion. There is mo derate coronary artery calcification. The central airways are patent. There is no thoracic lymphadeno juliane. No consolidation is identified. Several pulmonary nodules measuring up to 6 mm are unchanged s monae CT of August 25, 2021. These are benign. No acute fractures within the bony thorax are identified . IMPRESSION: 1. No pulmonary emboli identified. 2. No acute intrathoracic findings. ACT 112: Negative or not required by law. Electronically signed by: Stephen Glynn M.D. 08/01/2023 4:55 PM
[2023-08-01 17:15] LABS: Partial Thromboplastin Time 29 Seconds (21-31); Prothrombin Time 11.3 Seconds (9.0-12.0)
[2023-08-01] MEDS: HEPARIN SOD (PORCINE) 1000 UNIT/ML IV ONE (17:18)
[2023-08-01] MEDS: HEPARIN SODIUM/DEXTROSE 25,000 UNITS/500 ML BAG IV SCH (17:19)
[2023-08-01] MEDS: Heparin IVP from UFH Protocol (WITH Bolus) IV ONE (17:23)
[2023-08-01] MEDS: NITROGLYCERIN SL 0.4 MG/TAB TAB ONE (17:23)
[2023-08-01] MEDS: Heparin IV Adult Wt-Based Low-Dose w/ INITIAL Bolus Protocol IV STA (17:23)
[2023-08-01] MEDS ORDERED: STAT IV Infusion **Titration per Protocol STA ×2 (17:34→20:03)
--- NOTE | 2023-08-01 17:36 | History & Physical Report ---
Date of Service August 01, 2023 Assessment & Plan (1) NSTEMI (non-ST elevated myocardial infarction): Plan: Patient is now chest pain-free after nitroglycerin 0.4 mg sublingual x 2 Nitroglycerin 1 inch paste started to help with his blood pressure and recurrence of chest pain Bed rest Aspirin given in the emergency room, will continue with 81 mg p.o. daily Start metoprolol to tartrate to 25 mg p.o. BID tonight Start high-dose intensity statin with atorvastatin 40 mg p.o. daily Heparin IV low-dose with bolus NPO except medications, ice, chips and sips Consult cardiology TTE (2) DM (diabetes mellitus): Plan: Hemoglobin A1c 6.6 in March 2023, repeat with a.m. labs Discontinue pioglitazone NovoLog for correction factor only, add Lantus dosing if requiring frequent correction (3) GERD (gastroesophageal reflux disease): Plan: Continue pantoprazole 40 mg p.o. daily Carafate 1 g p.o. BID (4) HTN (hypertension): Plan: Continue losartan, Nitropaste as above, metoprolol as above (5) BPH (benign prostatic hyperplasia): Plan: Continue terazosin 5 mg p.o. HS next (6) Lumbar disc disease with radiculopathy: Plan: Continue gabapentin Stop naproxen due to NSTEMI Plan VTE prophylaxis - IV heparin Diet - n.p.o. Disposition - admit to PCU Admission and Anticipated Discharge Date Admission Date: August 01, 2023 History of Present Illness Chief Complaint: Chest pain Primary Care Provider: Alfredo Bradford MD Geraldo Fleming is an 78-year-old male who presents to the ER chest pain. Chest pain started at noon today and is still going on in the emergency room when seen. Initial severity 10/10, currently 6/10 when seen in the emergency department prior to any nitroglycerin. Central chest pressure radiates to his bilateral shoulders, back and arms. Former smoker quit in 1979. Diabetes controlled with HbA1c 6.6 in March 2023. High blood pressure is managed with losartan. He has never had a stroke or a myocardial infarction in the past. Initially told the ER triage that he did not have any ongoing chest pain therefore was not given any nitroglycerin on arrival to the ER. Chest pain now down to 0/10 after x 2 nitroglycerin 0.4 mg sublingual. Discussed care with Dr. Pittman (interventional cardiology) over the phone and at bedside with patient. Allergies Allergy/AdvReac Type Severity Reaction Status Date / Time levofloxacin Allergy Unknown HYPERACTIVE, Verified 08/01/23 17:24 JOINT ACHES, CLAUSTERPHOBIC lisinopril Allergy Unknown Unknown Verified 08/01/23 17:24 simvastatin Allergy Unknown Unknown Verified 08/01/23 17:24 hydrocodone AdvReac Unknown Vomiting Verified 08/01/23 17:24 meloxicam AdvReac Unknown SEVERE Verified 08/01/23 17:24 BODY ACHES oxycodone AdvReac Unknown VOMITING Verified 08/01/23 17:24 Home Medications Medication Instructions Recorded Confirmed Type cyanocobalamin (vitamin B-12) 1,000 mcg PO QAM 02/20/18 08/01/23 History 1,000 mcg tablet (Vitamin B-12) finasteride 5 mg tablet (Proscar) 5 mg PO QPM 02/20/18 08/01/23 History [id number]-[id number] 5 mg-zeaxanth 1 tab PO QAM 02/20/18 08/01/23 History 1 mg-bilberry 7.5 mg-herbal capsule (Macular Health Formula) omega-3-dha 29 mg-epa 6 mg-fish 1 tab PO QAM 02/20/18 08/01/23 History oil 133 mg-vit D3 100 unit chew tablet (Fish Oil-Vit D3) terazosin 5 mg capsule 5 mg PO HS 02/20/18 08/01/23 History cholecalciferol (vitamin D3) 50 2,000 units PO QAM 04/15/19 08/01/23 History mcg (2,000 unit) capsule ferrous sulfate 325 mg (65 mg 650 mg PO QAM 06/08/20 08/01/23 History iron) tablet aspirin 81 mg tablet,delayed 81 mg PO DAILY 08/25/21 08/01/23 History release (Sarah Low Dose Aspirin) zinc 50 mg tablet 50 mg PO DAILY 08/25/21 08/01/23 History cinnamon bark 500 mg capsule 1,000 mg PO DAILY 03/28/22 08/01/23 History (Cinnamon) naproxen 500 mg tablet 500 mg PO BID #60 tabs 08/18/22 08/01/23 Rx fluticasone propionate 50 1 spray intranasal DAILY #9.9 grams 09/07/22 08/01/23 Rx mcg/actuation nasal spray,suspension (Allergy Relief (fluticasone)) losartan 50 mg tablet 50 mg PO QAM #90 tabs 09/28/22 08/01/23 Rx pantoprazole 40 mg tablet,delayed 40 mg PO DAILY #90 tabs 09/28/22 08/01/23 Rx release sucralfate 1 gram tablet 1 g PO BID #180 tabs 09/28/22 08/01/23 Rx pioglitazone 15 mg tablet (Actos) 15 mg PO DAILY 04/03/23 08/01/23 History gabapentin 300 mg capsule 300 mg PO .COMPLEX #120 caps 04/17/23 08/01/23 Rx (Neurontin) thiamine HCl (vitamin B1) 100 mg 100 mg PO DAILY #90 tabs 05/15/23 08/01/23 Rx tablet (Vitamin B-1) Past Med/Surg History Medical History BPH (benign prostatic hyperplasia) Bronchitis Chronic back pain HX NUMBNESS IN RIGHT LEG/IMPROVED CURRENT ISSUE PAIN DOWN LEFT LEG Diabetes mellitus, type 2 DVT (deep venous thrombosis) 2007 AFTER HAVING CYSTO WITH STONE EXTRACTION Hydrocele Hyperlipidemia Hypertension Kidney stones hx Multiple pulmonary nodules no further follow up required per pulmonology Osteoarthritis Peripheral neuropathy Surgical History H/O lithotripsy History of arthroscopy History of colonoscopy History of cystoscopy History of endoscopy History of sinus surgery History of tonsillectomy History of total shoulder replacement S/P epidural steroid injection S/P ureteral stent placement (~2001) Status post transurethral resection of prostate Family History Brother Bladder cancer Lung cancer Asbestosis Father Myocardial infarction Lung cancer Mother Dementia Denies family history of Ovarian cancer Prostate cancer Diabetes Breast cancer Colorectal cancer Social History (Updated 04/03/23 @ 09:04 by Franny Win LPN) Smoking Status: Never smoker Cigarettes Per Day: 1979; Second Hand Exposure: No; Do You Dip or Chew Tobacco: No (FORMER); Hx Alcohol Use: No Hx Substance Use: No Preferred Language: Yi Communication Ability: Effective Visual Impairment: Limited Hearing Ability: Use of Hearing Aid Cell Tender Helper Required: No Beliefs That Will Affect Care: None marital status: / Current Living Situation: Alone current occupational status: retired 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 How many Children do You have: 1 Feels Safe at Home: Yes Childhood Exposure to Second-Hand Smoke: No Diet: regular caffeine: Yes during the past year weight has: remained stable Dental Care, Regularly: Yes Physical Activity Frequency: Daily Seatbelt Use: always Sunscreen Use: Yes Assistive Devices: Glasses and Hearing Aid - Bilateral Review of Systems Review of Systems: All systems reviewed & are unremarkable except as noted in HPI & below Physical Exam Constitutional: WD/WN, vitals as above Eyes: + anicteric sclerae; normal pupil size ENMT: external ear and nose normal, oropharynx normal Respiratory: normal respiratory effort, lungs clear to auscultation Cardiovascular: Rate/Rhythm: regular rate and regular rhythm Heart Sounds: no murmur Extremities: normal capillary refill and + pedal edema (1+ bilateral equal pitting); no calf tenderness Gastrointestinal (Abdomen): normal bowel sounds, soft, nontender, no hepatosplenomegaly Musculoskeletal: no cyanosis or clubbing, extremities motor strength 5/5 Skin: no rashes, warm and dry Neurologic: moves all extremities and awake; not confused Psychiatric: A+Ox3, euthymic affect Results & Data Results & Data Vital Signs (Past 12 Hours) Vital Signs Temp Pulse Resp BP Pulse Ox O2 Del Method 08/01/23 15:48 62 08/01/23 15:38 62 25 H 97 Room Air 08/01/23 15:30 36.9 C 70 25 H 188/96 H 97 Room Air Laboratory Results Abnormal lab results 08/01/23 08/01/23 Range/Units 15:50 15:55 MCHC 31.0 L (32.0-36.0) g/dL RDW Std Deviation 51.1 H (36.4-46.3) fL RDW Coeff of Evelio 16.6 H (11.5-14.5) % Jenkins # (Auto) 1.20 H (0.11-0.59) K/uL POC BUN 21 H (7-18) mg/dl Glucose 111 H (70-99(Fasting)) mg/dl POC Glucose (other) 116 H (70-99) mg/dl Alkaline Phosphatase 112 H (34-104) U/L Troponin I High Sens 305.4 H* (0-20) pg/ml Globulin 4.4 H (2.5-4.0) gm/dl Albumin/Globulin Ratio 0.8 L (0.9-2) Diagnostic Findings XR chest 1V portable CLINICAL HISTORY: Chest pain, nonspecific COMPARISON STUDY: Chest CT August 25, 2021. Chest radiograph May 03, 2022. FINDINGS: Bilateral shoulder arthroplasties are incidentally noted. There is no pneumothorax or pleural effusion. Cardiomegaly is unchanged. Mediastinal contours are stable. There is no evidence for pulmonary edema. There is no consolidation to suggest pneumonia. IMPRESSION: No acute cardiopulmonary findings. No change in appearance of the chest. CT ANGIOGRAPHY OF THE CHEST, PULMONARY EMBOLUS PROTOCOL CLINICAL HISTORY: Chest pain. History of pulmonary emboli. COMPARISON STUDY: Chest CT August 25, 2021. Chest radiograph performed earlier today. TECHNIQUE: Following IV administration of 117 mL of Optiray, helical axial images of the chest were obtained utilizing the pulmonary embolus protocol. Maximal intensity projections and sagittal and coronal reformats were viewed on an independent 3D workstation. IV contrast was administered without complication. Automated exposure control was utilized for the study. A dose lowering technique was utilized adhering to the principles of ALARA. CT DOSE: 896.29 mGy.cm FINDINGS: No pulmonary emboli are identified. There is no thoracic aortic dissection. There is mild dilatation of the central pulmonary arteries. Mild cardiomegaly. No pericardial effusion. There is moderate coronary artery calcification. The central airways are patent. There is no thoracic ly mphadenopathy. No consolidation is identified. Several pulmonary nodules measuring up to 6 mm are unchanged since CT of August 25, 2021. These are benign. No acute fractures within the bony thorax are identified. IMPRESSION: 1. No pulmonary emboli identified. 2. No acute intrathoracic findings. Medications Administered ER medications given: Aspirin 243 mg p.o. Heparin low-dose bolus and drip IV ECG Rate (beats per minute): 68 Rhythm: normal sinus Findings: + 1st degree AV block and + PVC Comparison ECG Date: from (August 25, 2021) Change: the following changes noted (PVCs now present) Code Status & VTE Plan Code Status Full VTE Prophylaxis Plan VTE Prophylaxis will be ordered: Yes Critical Care Time Critical Care Time: Yes Total Critical Care Time: 40 PG Care Time/CCT Total # of Minutes Spent Total Time Spent with Patient: Total time spent is greater than 50% in coordination of care (as documented) at patient's floor/unit and/or counseling patient: Critical Care Time: Yes Total Critical Care Time: 40 Coding Level of Care Code 24701 INT INP/OBS CARE 3/75MIN Diagnoses NSTEMI (non-ST elevated myocardial infarction) I21.4 DM (diabetes mellitus) E11.9 GERD (gastroesophageal reflux disease) K21.9 HTN (hypertension) I10 BPH (benign prostatic hyperplasia) N40.0 Lumbar disc disease with radiculopathy M51.16 Additional Codes Critical Care Time - Critical Care Time: Yes ([id number])
[2023-08-01] MEDS: NITROGLYCERIN SL 0.4 MG/TAB TAB SL PRN (17:37)
[2023-08-01 18:11] LABS: iSTAT Creatinine 1.1 mg/dl (0.6-1.3); iSTAT Hemoglobin 15.3 g/dl (14.0-18.0); iSTAT Ionized Calcium 1.25 mmol/l (1.12-1.32)
[2023-08-01] MEDS: NITROGLYCERIN 2% OINTMENT 30GM TUBE EXT STA ×2 (18:33→19:34)
[2023-08-01] MEDS: NITROGLYCERIN/D5W 100MCG/ML 250 ML IV SCH ×2 (18:34→20:15)
[2023-08-01] MEDS: CLOPIDOGREL BISULFATE 300 MG TAB PO STA (19:29)
[2023-08-01] MEDS: NITROGLYCERIN SL 0.4 MG/TAB TAB SL STA (19:34)
[2023-08-01 20:06] LABS: Magnesium 1.8 mg/dl (1.7-2.4)
[2023-08-01 20:14] LABS: Troponin I High Sensitivity 1195.9 pg/ml (0-20)
[2023-08-01] MEDS ORDERED: PHARMACY GLYCEMIC MGMT CONSULT PRN (20:29)
[2023-08-01] MEDS ORDERED: GLUCAGON FOR INJ 1 MG VIAL SQ PRN (20:29)
[2023-08-01] MEDS ORDERED: GLUCOSE 40% GEL 15 GM TUBE PO PRN (20:29)
[2023-08-01] MEDS ORDERED: DEXTROSE 50% 50 ML SYRINGE IV PRN (20:29)
[2023-08-01] MEDS ORDERED: GLUCOSE 10 TAB/TUBE PO PRN (20:29)
[2023-08-01] MEDS ORDERED: CARBOHYDRATES FOR HYPOGLYCEMIA PO PRN (20:29)
[2023-08-01] MEDS ORDERED: NITROGLYCERIN SL 0.4 MG/TAB TAB SL PRN (20:33)
[2023-08-01] MEDS ORDERED: NITROGLYCERIN 2% OINTMENT 30GM TUBE EXT SCH (21:00)
[2023-08-01] MEDS ORDERED: INSULIN ASPART PER UNIT CHARGE SC SCH (21:00)
[2023-08-01 21:19] VITALS: TEMP 97.9
--- NOTE | 2023-08-01 22:08 | Emergency Department Note ---
ED Provider Note History of Present Illness Chief Complaint: Cardiac Assessment Stated Complaint: CHEST PAIN AND ARM Time Seen by Provider: 08/01/23 15:56 Source: patient Mode of arrival: ambulatory Limitations: no limitations This patient is an 78-year-old Male who presents to the ED for evaluation of chest and back pain. He states that he had some pain yesterday, primarily in his back but was mild at that time. Patient started today around 12:00 when he states that he was just sitting down. Pain lasted about 4 hours but has now resolved on arrival to the ER room. He states that the pain he experienced this afternoon was much more severe than yesterday. Pain is across the front of the chest, radiating down the right arm and through the back. Reports sob, dizziness, and sweating associated with this. Denies cardiac history. He vomited once before coming here. Patient is diabetic. Does report a family history of cardiac disease. He denies any abdominal pain, recent illness or fevers. He does report a history of a blood clot in the past. Patient also does note some recent issues with his right knee. He states that he was seen by orthopedics last week and had some fluid drained off of the knee and an injection, but this did not help the pain. Home Medications Medication Instructions Recorded Confirmed Type cyanocobalamin (vitamin B-12) 1,000 mcg PO QAM 02/20/18 08/04/23 History 1,000 mcg tablet (Vitamin B-12) finasteride 5 mg tablet (Proscar) 5 mg PO QPM 02/20/18 08/04/23 History qcunlydl-occ-gpginu 5 mg-zeaxanth 1 tab PO QAM 02/20/18 08/04/23 History 1 mg-bilberry 7.5 mg-herbal capsule (Macular Health Formula) omega-3-dha 29 mg-epa 6 mg-fish 1 tab PO QAM 02/20/18 08/04/23 History oil 133 mg-vit D3 100 unit chew tablet (Fish Oil-Vit D3) terazosin 5 mg capsule 5 mg PO HS 02/20/18 08/04/23 History cholecalciferol (vitamin D3) 50 2,000 units PO QAM 04/15/19 08/04/23 History mcg (2,000 unit) capsule ferrous sulfate 325 mg (65 mg 650 mg PO QAM 06/08/20 08/04/23 History iron) tablet aspirin 81 mg tablet,delayed 81 mg PO DAILY 08/25/21 08/04/23 History release (Sarah Low Dose Aspirin) zinc 50 mg tablet 50 mg PO DAILY 08/25/21 08/04/23 History cinnamon bark 500 mg capsule 1,000 mg PO DAILY 03/28/22 08/04/23 History (Cinnamon) fluticasone propionate 50 1 spray intranasal DAILY #9.9 grams 09/07/22 08/04/23 Rx mcg/actuation nasal spray,suspension (Allergy Relief (fluticasone)) losartan 50 mg tablet 50 mg PO QAM #90 tabs 09/28/22 08/04/23 Rx pantoprazole 40 mg tablet,delayed 40 mg PO DAILY #90 tabs 09/28/22 08/04/23 Rx release sucralfate 1 gram tablet 1 g PO BID #180 tabs 09/28/22 08/04/23 Rx pioglitazone 15 mg tablet (Actos) 15 mg PO DAILY 04/03/23 08/04/23 History thiamine HCl (vitamin B1) 100 mg 100 mg PO DAILY #90 tabs 05/15/23 08/04/23 Rx tablet (Vitamin B-1) atorvastatin 40 mg tablet 40 mg PO HS #30 tabs 08/03/23 08/04/23 Rx clopidogrel 75 mg tablet 75 mg PO QAM #30 tabs 08/03/23 08/04/23 Rx metoprolol succinate 50 mg 50 mg PO PM #30 tabs 08/03/23 08/04/23 Rx tablet,extended release 24 hr gabapentin 300 mg capsule See Rx Instructions PO .COMPLEX 08/04/23 08/04/23 Rx (Neurontin) #120 caps Allergies Allergy/AdvReac Type Severity Reaction Status Date / Time levofloxacin Allergy Unknown HYPERACTIVE, Verified 08/01/23 17:24 JOINT ACHES, CLAUSTERPHOBIC lisinopril Allergy Unknown Unknown Verified 08/01/23 17:24 simvastatin Allergy Unknown Unknown Verified 08/01/23 17:24 hydrocodone AdvReac Unknown Vomiting Verified 08/01/23 17:24 meloxicam AdvReac Unknown SEVERE Verified 08/01/23 17:24 BODY ACHES oxycodone AdvReac Unknown VOMITING Verified 08/01/23 17:24 Past Med/Surg History Medical History Bronchitis Hydrocele Peripheral neuropathy Osteoarthritis Hyperlipidemia Hypertension Multiple pulmonary nodules no further follow up required per pulmonology Chronic back pain HX NUMBNESS IN RIGHT LEG/IMPROVED CURRENT ISSUE PAIN DOWN LEFT LEG Kidney stones hx BPH (benign prostatic hyperplasia) Diabetes mellitus, type 2 DVT (deep venous thrombosis) 2008 AFTER HAVING CYSTO WITH STONE EXTRACTION Surgical History S/P ureteral stent placement (~2001) H/O lithotripsy History of endoscopy History of colonoscopy S/P epidural steroid injection History of sinus surgery History of tonsillectomy History of total shoulder replacement BILATERAL Status post transurethral resection of prostate TUNA PROCEDURE History of arthroscopy RT KNEE, RT SHOULDER, RT ELBOW History of cystoscopy Family History Brother Bladder cancer Lung cancer small cell squamous Asbestosis Father Myocardial infarction Lung cancer Mother Dementia Denies family history of Ovarian cancer Prostate cancer Diabetes Breast cancer Colorectal cancer Social History Smoking Status: Never smoker Cigarettes Per Day: 1979; Second Hand Exposure: No; Do You Dip or Chew Tobacco: No; Hx Alcohol Use: No Hx Substance Use: No Preferred Language: Taiwanese Communication Ability: Effective Visual Impairment: Limited Hearing Ability: Use of Hearing Aid Automotive Engineering Technician Required: No Beliefs That Will Affect Care: None marital status: / Current Living Situation: Family current occupational status: retired 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 How many Children do You have: 1 Feels Safe at Home: Yes Childhood Exposure to Second-Hand Smoke: No Diet: regular caffeine: Yes during the past year weight has: remained stable Dental Care, Regularly: Yes Physical Activity Frequency: Daily Seatbelt Use: always Sunscreen Use: Yes Assistive Devices: None Physical Exam Vital Signs Vital Signs - 24 hr 08/01/23 15:30 08/01/23 15:38 08/01/23 15:48 Temperature 36.9 C Temperature Source Temporal Artery Scan Pulse Rate 70 62 62 Pulse Rate from SpO2 Sensor Pulse Rhythm Regular Respiratory Rate 25 H 25 H Respiratory Effort / Characteristics Non-Labored Labored Respiratory Depth Normal Blood Pressure 188/96 H Blood Pressure Mean 126 Pulse Oximetry 97 97 Oxygen Delivery Method Room Air Room Air Sepsis Recent Fever Within 48 Hours No Sepsis New/Unexplained Change in Mental Status No Sepsis Action Taken by Nursing No Action Required 08/01/23 16:00 08/01/23 16:30 08/01/23 17:00 Temperature Temperature Source Pulse Rate 67 70 72 Pulse Rate from SpO2 Sensor 64 69 Pulse Rhythm Respiratory Rate 19 17 19 Respiratory Effort / Characteristics Respiratory Depth Blood Pressure 194/98 H 201/105 H 179/98 H Blood Pressure Mean 130 137 125 Pulse Oximetry 97 98 Oxygen Delivery Method Sepsis Recent Fever Within 48 Hours Sepsis New/Unexplained Change in Mental Status Sepsis Action Taken by Nursing 08/01/23 17:30 08/01/23 17:44 08/01/23 17:45 Temperature Temperature Source Pulse Rate 70 73 70 Pulse Rate from SpO2 Sensor Pulse Rhythm Respiratory Rate 22 21 21 Respiratory Effort / Characteristics Respiratory Depth Blood Pressure 163/104 H 149/94 H 162/95 H Blood Pressure Mean 123 112 117 Pulse Oximetry Oxygen Delivery Method Sepsis Recent Fever Within 48 Hours Sepsis New/Unexplained Change in Mental Status Sepsis Action Taken by Nursing 08/01/23 18:00 08/01/23 18:15 Temperature Temperature Source Pulse Rate 68 66 Pulse Rate from SpO2 Sensor 69 66 Pulse Rhythm Respiratory Rate 20 24 Respiratory Effort / Characteristics Respiratory Depth Blood Pressure 167/100 H 167/94 H Blood Pressure Mean 122 118 Pulse Oximetry 96 96 Oxygen Delivery Method Sepsis Recent Fever Within 48 Hours Sepsis New/Unexplained Change in Mental Status Sepsis Action Taken by Nursing VITALS: Vitals are noted on the nurse's note and reviewed by myself. GENERAL: This is an 78-year-old male, in no acute distress. SKIN: The skin was without rashes. EYES: Pupils equal round and reactive to light and accommodation. MOUTH: Mucous membranes moist. HEART: Regular rate and rhythm without murmurs gallops or rubs. LUNGS: Clear to auscultation bilaterally without wheezes, rales or rhonchi. No retractions or accessory muscle use. ABDOMEN: Positive bowel sounds x 4. Soft, nontender to palpation. MUSCULOSKELETAL: Mild edema of the right knee, no erythema or warmth. NEURO: Patient was alert and oriented to person place and time. Course Administered Medications Discontinued Medications Aspirin (Aspirin 81 Mg Chew) 243 mg PO NOW STA Stop: 08/01/23 16:05 Last Admin: 08/01/23 16:21 Dose: 243 mg Documented By: ZULEYMA Aspirin (Aspirin 81 Mg Ectab) 81 mg PO DAILY KYRA Stop: 09/01/23 08:59 Last Admin: 08/03/23 07:33 Dose: 81 mg Documented By: Admin: 08/02/23 08:31 Dose: 81 mg Documented By: ERNIE Atorvastatin Calcium (Atorvastatin 40 Mg Tab) 40 mg PO HS KYRA Stop: 08/31/23 20:59 Last Admin: 08/02/23 21:25 Dose: 40 mg Documented By: Admin: 08/01/23 22:12 Dose: 40 mg Documented By: TP Clopidogrel Bisulfate (Clopidogrel Bisulfate 300 Mg Tab) 300 mg PO NOW STA Stop: 08/01/23 18:44 Last Admin: 08/01/23 19:29 Dose: 300 mg Documented By: Clopidogrel Bisulfate (Clopidogrel Bisulfate 75 Mg Tab) 75 mg PO QA KYRA Stop: 09/01/23 08:59 Last Admin: 08/03/23 07:32 Dose: 75 mg Documented By: Admin: 08/02/23 08:32 Dose: 75 mg Documented By: ERNIE Fentanyl Citrate (Fentanyl Citrate Pf 100 Mcg/2 Ml Vial) Confirm Administered Dose 100 mcg .ROUTE .STK-MED ONE Stop: 08/02/23 15:53 Last Increment: 08/02/23 16:55 Dose: 50 mcg Documented By: JOSE Finasteride (Finasteride 5 Mg Tab) 5 mg PO QPM KYRA Stop: 08/31/23 20:59 Last Admin: 08/02/23 21:25 Dose: 5 mg Documented By: Admin: 08/01/23 22:13 Dose: 5 mg Documented By: RILEY Gabapentin (Gabapentin 300 Mg Cap) 600 mg PO HS KYRA Stop: 08/31/23 20:59 Last Admin: 08/02/23 21:25 Dose: 600 mg Documented By: Admin: 08/01/23 22:13 Dose: 600 mg Documented By: RILEY Gabapentin (Gabapentin 300 Mg Cap) 300 mg PO DAILY KYRA Stop: 09/01/23 08:59 Last Admin: 08/03/23 07:33 Dose: 300 mg Documented By: Admin: 08/02/23 08:32 Dose: 300 mg Documented By: ERNIE Gabapentin (Gabapentin 300 Mg Cap) 300 mg PO BID@0900,1400 KYRA Stop: 09/02/23 13:59 Last Admin: 08/03/23 13:55 Dose: 300 mg Documented By: TRISHA Heparin Sodium (Porcine) (Heparin Sod (Porcine) 1000 Unit/Ml) 1 units IV NOW ONE Stop: 08/01/23 17:15 Last Admin: 08/01/23 17:18 Dose: 4,000 units Documented By: ZULEYMA Co-signed By: FLOR Heparin Sodium (Porcine) (Heparin Ivp From Ufh Protocol (With Bolus)) 4,000 units IV NOW ONE Stop: 08/01/23 17:31 Last Admin: 08/01/23 17:23 Dose: Not Given Documented By: ZULEYMA Heparin Sodium (Porcine) (Heparin (Porcine) 1000 Unit/Ml 10 Ml (Apprentice Electrician Use Only)) Confirm Administered Dose 10,000 units .ROUTE .STK-MED ONE Stop: 08/02/23 15:52 Last Admin: 08/02/23 16:53 Dose: 5,000 units Documented By: JOSE Heparin Sodium/Dextrose (Heparin Iv Adult Wt-Based Low-Dose W/ Initial Bolus Protocol) 1 each IV NOW STA; Protocol Stop: 08/01/23 17:00 Last Admin: 08/01/23 17:23 Dose: Not Given Documented By: ZULEYMA Heparin Sodium/Sodium Chloride (Heparin In Nss Infusion 1000 Unit/500 Ml (2 U/Ml) Bag) Confirm Administered Dose 3,000 units IV .STK-MED ONE Stop: 08/02/23 15:53 Last Admin: 08/02/23 16:55 Dose: 3,000 units Documented By: JOSE Heparin Sodium/Dextrose (Heparin Sodium/Dextrose) 25,000 units in 500 mls @ 24 mls/hr IV .[id number] [facility]; Protocol Stop: 08/31/23 17:14 Last Titration: 08/02/23 17:23 Dose: Infused Documented By: ERNIE Co-signed By: KEVIN Admin: 08/02/23 13:18 Dose: 1,200 units/hr, 24 mls/hr Documented By: ERNIE Co-signed By: EMILIE Titration: 08/02/23 13:18 Dose: Infused Documented By: ERNIE Co-signed By: EMILIE Titration: 08/02/23 08:18 Dose: 1,200 units/hr, 24 mls/hr Documented By: ERNIE Co-signed By: ELDA Titration: 08/02/23 07:27 Dose: 1,200 units/hr, 24 mls/hr Documented By: RILEY Co-signed By: ERNIE Titration: 08/02/23 00:19 Dose: 1,200 units/hr, 24 mls/hr Documented By: RILEY Co-signed By: ARNAUD Admin: 08/01/23 17:19 Dose: 1,000 units/hr, 20 mls/hr Documented By: ZULEYMA Co-signed By: FLOR Nitroglycerin/Dextrose (Nitroglycerin/D5w 100 Mcg/Ml) 250 mls @ 3 mls/hr IV .Q24H KYRA; Protocol Stop: 08/31/23 17:44 Last Admin: 08/01/23 18:34 Dose: Not Given Documented By: ZULEYMA Nitroglycerin/Dextrose (Nitroglycerin/D5w 100 Mcg/Ml) 250 mls @ 0 mls/hr IV .Q0M KYRA; Protocol Stop: 08/31/23 20:14 Last Titration: 08/02/23 17:23 Dose: Infused Documented By: Titration: 08/02/23 00:30 Dose: 0 mcg/min, 0 mls/hr Documented By: Admin: 08/01/23 20:15 Dose: 5 mcg/min, 3 mls/hr Documented By: Co-signed By: CLIFF Magnesium Sulfate/Dextrose (Magnesium Sulfate / D5w) 1 gm in 100 mls @ 50 mls/hr IV ONE ONE Stop: 08/01/23 22:33 Last Infusion: 08/02/23 00:12 Dose: Infused Documented By: Admin: 08/01/23 22:12 Dose: 50 mls/hr Documented By: RILEY Heparin Sodium (Porcine) 4,000 (units/ Syringe) 4 mls @ 10 mls/min IV ONE ONE Stop: 08/02/23 00:16 Last Admin: 08/02/23 00:19 Dose: 10 mls/min Documented By: RILEY Co-signed By: ARNAUD Sodium Chloride (Nss) 1,000 mls @ 100 mls/hr IV .Q10H KYRA Stop: 08/02/23 22:14 Last Infusion: 08/03/23 03:36 Dose: Infused Documented By: Admin: 08/02/23 17:36 Dose: 100 mls/hr Documented By: ERNIE Potassium Chloride (K Elpidio / Wtr) 10 meq in 100 mls @ 100 mls/hr IV Q1H KYRA Stop: 08/03/23 08:44 Last Infusion: 08/03/23 10:32 Dose: Infused Documented By: Admin: 08/03/23 09:02 Dose: 100 mls/hr Documented By: Infusion: 08/03/23 08:26 Dose: Infused Documented By: Admin: 08/03/23 07:26 Dose: 100 mls/hr Documented By: TRISHA Magnesium Sulfate/Dextrose (Magnesium Sulfate / D5w) 1 gm in 100 mls @ 50 mls/hr IV Q2H KYRA Stop: 08/03/23 10:44 Last Infusion: 08/03/23 10:58 Dose: Infused Documented By: Admin: 08/03/23 09:02 Dose: 50 mls/hr Documented By: Infusion: 08/03/23 09:02 Dose: Infused Documented By: Admin: 08/03/23 07:26 Dose: 50 mls/hr Documented By: TRISHA Insulin Aspart (Insulin Aspart Per Unit Charge) 0 units SC Q6 KYRA; Protocol Stop: 09/01/23 00:00 Last Admin: 08/02/23 12:24 Dose: Not Given Documented By: ERNIE Co-signed By: KRYSTAL Admin: 08/02/23 06:26 Dose: Not Given Documented By: RILEY Co-signed By: CONSUELO Admin: 08/02/23 00:18 Dose: Not Given Documented By: TP Co-signed By: ARNAUD Insulin Aspart (Insulin Aspart Per Unit Charge) 0 units SC ACHS KYRA; Protocol Stop: 09/01/23 17:44 Last Admin: 08/03/23 12:27 Dose: 5 units Documented By: TRISHA Co-signed By: ИВАН Admin: 08/03/23 07:35 Dose: Not Given Documented By: Admin: 08/02/23 21:25 Dose: Not Given Documented By: RILEY Co-signed By: CONSUELO Admin: 08/02/23 17:37 Dose: Not Given Documented By: ERNIE Co-signed By: ELDA Ioversol (Optiray 320 125ml) 117 ml IV ONCE ONE Stop: 08/01/23 16:37 Last Admin: 08/01/23 16:37 Dose: 117 ml Documented By: ALYSSA Ioversol (Optiray 350) Confirm Administered Dose 1 ml .ROUTE .STK-MED ONE Stop: 08/02/23 15:54 Last Admin: 08/02/23 16:55 Dose: 130 ml Documented By: JOSE Losartan Potassium (Losartan Potassium 50 Mg Tab) 50 mg PO QAM [facility] Stop: 09/01/23 08:59 Last Admin: 08/03/23 07:32 Dose: 50 mg Documented By: Admin: 08/02/23 08:32 Dose: 50 mg Documented By: ERNIE Metoprolol Tartrate (Metoprolol Tartrate 25 Mg Tab) 25 mg PO BID [facility] Stop: 08/31/23 20:59 Last Admin: 08/03/23 07:32 Dose: 25 mg Documented By: Admin: 08/02/23 21:25 Dose: 25 mg Documented By: Admin: 08/02/23 08:32 Dose: 25 mg Documented By: Admin: 08/01/23 22:14 Dose: 25 mg Documented By: RILEY Midazolam HCl (Midazolam Hcl 1 Mg/Ml 2ml Vial) Confirm Administered Dose 2 mg .ROUTE .STK-MED ONE Stop: 08/02/23 15:52 Last Increment: 08/02/23 16:53 Dose: 1 mg Documented By: JOSE Nicardipine HCl (Nicardipine Hcl Inj 2.5 Mg/Ml 10 Ml Amp) Confirm Administered Dose 25 mg .ROUTE .STK-MED ONE Stop: 08/02/23 15:52 Last Admin: 08/02/23 16:54 Dose: 25 mg Documented By: JOSE Nitroglycerin (Nitroglycerin Sl 0.4 Mg/Tab Tab) 0.4 mg SL Q5M PRN PRN Reason: Chest Pain Stop: 08/31/23 17:17 Last Admin: 08/01/23 17:37 Dose: 0.4 mg Documented By: ZULEYMA Nitroglycerin (Nitroglycerin Sl 0.4 Mg/Tab Tab) Confirm Administered Dose 0.4 mg .ROUTE .STK-MED ONE Stop: 08/01/23 17:23 Last Admin: 08/01/23 17:23 Dose: 0.4 mg Documented By: ZULEYMA Nitroglycerin (Nitroglycerin 2% Ointment 30gm Tube) 1 inch EXT ONE STA Stop: 08/01/23 18:22 Last Admin: 08/01/23 18:33 Dose: 1 inch Documented By: ZULEYMA Nitroglycerin (Nitroglycerin 2% Ointment 30gm Tube) 2 inch EXT ONE STA Stop: 08/01/23 19:21 Last Admin: 08/01/23 19:34 Dose: 2 inch Documented By: Nitroglycerin (Nitroglycerin Sl 0.4 Mg/Tab Tab) 0.4 mg SL NOW STA Stop: 08/01/23 19:22 Last Admin: 08/01/23 19:34 Dose: 0.4 mg Documented By: Nitroglycerin/Dextrose (Nitroglycerin/D5w 100mcg/Ml 20ml Syr) Confirm Administered Dose 2,000 mcg .ROUTE .STK-MED ONE Stop: 08/02/23 15:53 Last Admin: 08/02/23 16:55 Dose: 2,000 mcg Documented By: JOSE Pantoprazole Sodium (Pantoprazole 40 Mg Tab) 40 mg PO DAILY KYRA Stop: 09/01/23 08:59 Last Admin: 08/03/23 07:33 Dose: 40 mg Documented By: Admin: 08/02/23 08:32 Dose: 40 mg Documented By: ERNIE Sucralfate (Sucralfate 1 Gm Tab) 1 gm PO BID KYRA Stop: 08/31/23 20:59 Last Admin: 08/03/23 07:32 Dose: 1 gm Documented By: Admin: 08/02/23 21:25 Dose: 1 gm Documented By: Admin: 08/02/23 08:33 Dose: 1 gm Documented By: Admin: 08/01/23 22:14 Dose: 1 gm Documented By: RILEY Terazosin HCl (Terazosin Hcl 5 Mg Cap) 5 mg PO HS KYRA Stop: 08/31/23 20:59 Last Admin: 08/02/23 21:25 Dose: 5 mg Documented By: Admin: 08/01/23 22:15 Dose: 5 mg Documented By: RILEY Thiamine HCl (Thiamine Hcl 100 Mg Tab) 100 mg PO DAILY KYRA Stop: 09/01/23 08:59 Last Admin: 08/03/23 07:33 Dose: 100 mg Documented By: Admin: 08/02/23 08:33 Dose: 100 mg Documented By: ERNIE Zinc Sulfate (Zinc Sulfate 220 Mg Capsule) 220 mg PO DAILY KYRA Stop: 09/01/23 08:59 Last Admin: 08/03/23 07:32 Dose: 220 mg Documented By: Admin: 08/02/23 08:33 Dose: 220 mg Documented By: ERNIE Medical Decision Making Differential Diagnosis Cardiac ischemia, aortic dissection, pulmonary embolism, pneumothorax, pneumonia, pericarditis, myocarditis, esophageal rupture, GERD, cholecystitis, pancreatitis, musculoskeletal, as well as other pathologies. Home Medications was personally reviewed by me Laboratory Data Attestation: I reviewed the patient's lab results. 08/03/23 04:04 08/03/23 04:04 Lab Results 08/01/23 08/01/23 Range/Units 15:50 15:55 WBC 9.58 (4.8-10.8) K/ul RBC 5.50 (4.70-6.10) M/uL Hgb 14.5 (14.0-18.0) g/dl POC Hgb 15.3 (14.0-18.0) g/dl Hct 46.8 (42.0-52.0) % POC Hct 45 (42-52) % MCV 85.1 (80.0-100.0) fL MCH 26.4 (25.0-34.0) pg MCHC 31.0 L (32.0-36.0) g/dL RDW Std Deviation 51.1 H (36.4-46.3) fL RDW Coeff of Evelio 16.6 H (11.5-14.5) % Plt Count 229 (130-400) K/uL MPV 11.1 (9.4-12.4) fL Immature Gran % (Auto) 0.7 % Neut % (Auto) 66.3 % Lymph % (Auto) 17.8 % Taylor % (Auto) 12.5 % Eos % (Auto) 2.0 % Baso % (Auto) 0.7 % Neut # (Auto) 6.34 (1.40-6.50) K/uL Lymph # (Auto) 1.71 (1.20-3.40) K/uL Taylor # (Auto) 1.20 H (0.11-0.59) K/uL Eos # (Auto) 0.19 (0.00-0.50) K/uL Baso # (Auto) 0.07 (0.00-0.20) K/uL Immature Gran # (Auto) 0.07 (0.01-0.20) K/uL PT 11.3 (9.0-12.0) Seconds INR 1.0 (0.9-1.1) APTT 29 (21-31) Seconds PTT Ratio 1.0 POC Sodium 140 (135-144) mmol/L Sodium 138 (136-145) mmol/L POC Potassium 4.0 (3.3-5.0) mmol/L Potassium 4.1 (3.5-5.1) mmol/L POC Chloride 102 (101-112) mmol/L Chloride 103 (98-107) mmol/L Carbon Dioxide 30 (21-32) mmol/L POC Total CO2 27 (24-31) mmol/L Anion Gap 5 (3-11) POC Anion Gap 17.0 (16-25) mmol/L POC BUN 21 H (7-18) mg/dl BUN 21 (6-23) mg/dl Creatinine 1.07 (0.6-1.4) mg/dl POC Creatinine 1.1 (0.6-1.3) mg/dl Est Cr Clr Drug Dosing 71.7 ml/min Est GFR ( Amer) 75.6 ml/min Est GFR (Non-Af Amer) 65.2 ml/min BUN/Creatinine Ratio 19.6 (10-20) Glucose 111 H (70-99(Fasting)) mg/dl POC Glucose (other) 116 H (70-99) mg/dl Calcium 9.7 (8.6-10.3) mg/dl POC Ioniz Calcium Naga 1.25 (1.12-1.32) mmol/l Total Bilirubin 0.5 (0.2-1.0) mg/dl AST 15 (13-39) U/L ALT 12 (7-52) U/L Alkaline Phosphatase 112 H (34-104) U/L Troponin I High Sens 305.4 H* (0-20) pg/ml Total Protein 8.1 (6.0-8.3) gm/dl Albumin 3.7 (3.4-5.0) gm/dl Globulin 4.4 H (2.5-4.0) gm/dl Albumin/Globulin Ratio 0.8 L (0.9-2) Lipase 11 (11-82) U/L Imaging Data Attestation: I personally reviewed and interpreted this imaging study as follows: Radiologist's Impression: Chest X-Ray 08/01/23 15:33 XR chest 1V portable CLINICAL HISTORY: Chest pain, nonspecific COMPARISON STUDY: Chest CT August 25, 2021. Chest radiograph May 03, 2022. FINDINGS: Bilateral shoulder arthroplasties are incidentally noted. There is no pneumothorax or pleural effusion. Cardiomegaly is unchanged. Mediastinal contours are stable. There is no evidence for pulmonary edema. There is no consolidation to suggest pneumonia. IMPRESSION: No acute cardiopulmonary findings. No change in appearance of the chest. ACT 112: Negative or not required by law. Electronically signed by: Stephen Glynn M.D. 08/01/2023 4:09 PM Chest CTA 08/01/23 16:07 CT ANGIOGRAPHY OF THE CHEST, PULMONARY EMBOLUS PROTOCOL CLINICAL HISTORY: Chest pain. History of pulmonary emboli. COMPARISON STUDY: Chest CT August 25, 2021. Chest radiograph performed earlier today. TECHNIQUE: Following IV administration of 117 mL of Optiray, helical axial images of the chest were obtained utilizing the pulmonary embolus protocol. Maximal intensity projections and sagittal and coronal reformats were viewed on an independent 3D workstation. IV contrast was administered without complication. Automated exposure control was utilized for the study. A dose lowering technique was utilized adhering to the principles of ALARA. CT DOSE: 896.29 mGy.cm FINDINGS: No pulmonary emboli are identified. There is no thoracic aortic dissection. There is mild dilatation of the central pulmonary arteries. Mild cardiomegaly. No pericardial effusion. There is moderate coronary artery calcification. The central airways are patent. There is no thoracic lymphadenopathy. No consolidation is identified. Several pulmonary nodules measuring up to 6 mm are unchanged since CT of August 25, 2021. These are benign. No acute fractures within the bony thorax are identified. IMPRESSION: 1. No pulmonary emboli identified. 2. No acute intrathoracic findings. ACT 112: Negative or not required by law. Electronically signed by: Stephen Glynn M.D. 08/01/2023 4:55 PM ECG Data Attestation: I personally reviewed and interpreted this ECG as follows: Indication: + chest pain Rate (beats per minute): 57 Rhythm: + sinus bradycardia ECG ST segments: + T-wave inversions Change: no significant change MDM Narrative Continuous desk monitor: Order was placed for continuous desk monitor. Patient was placed on the desk monitor. Patient was noted to be in normal sinus rhythm at an initial rate of 60 bpm. The patient is an 78-year-old male who presents today complaining of chest pain. Patient was having chest pain when triage, however on my initial evaluation of the patient in the emergency department room stated that his pain had resolved at that time. He was found to have an elevated troponin of [address] of the chest was performed to rule out PE as patient does have a history of clots and this was negative. His EKG shows some T wave inversions/nonspecific ST changes but no ST elevation. Patient was given aspirin on arrival. He was given IV heparin. [facility] patient for further care. Attending Attestation: I Enio Miller MD independently saw and evaluated this patient and agree with history and physical is otherwise documented by the physician occupational therapist assistant. See their note for full details. Pain-free on my evaluation. Mild troponin elevation. Concerning story. Will heparinize and bring into the hospital for further care. Impression NSTEMI (non-ST elevated myocardial infarction) Critical Care Time Critical Care Time: Yes Total Critical Care Time: 35 I have personally spent greater than 35 minutes of critical care time in the direct management of this patient. This includes bedside care, interpretation of diagnostic studies, and testing, discussion with consultants, patient, and family members, and other required patient management activities. This 35 minutes is in excess of all separately billable procedures. Discharge Plan Visit Data Chief Complaint: Cardiac Assessment Stated Complaint: CHEST PAIN AND ARM ED Provider: Enio Miller ED Midlevel Provider: Priti Kaur Discharge Problem: NSTEMI (non-ST elevated myocardial infarction) Patient Disposition: Admitted As Inpatient Discharge Instructions Interventions: ED Discharge Assessment Last Done: 08/01/23 20:20
[2023-08-01] MEDS: ATORVASTATIN 40 MG TAB PO SCH (22:12)
[2023-08-01] MEDS: MAGNESIUM SULFATE / D5W 1 GM/100 ML BAG IV ONE (22:12)
[2023-08-01] MEDS: FINASTERIDE 5 MG TAB PO SCH (22:13)
[2023-08-01] MEDS: GABAPENTIN 300 MG CAP PO SCH (22:13)
[2023-08-01] MEDS: SUCRALFATE 1 GM TAB PO SCH (22:14)
[2023-08-01] MEDS: METOPROLOL TARTRATE 25 MG TAB PO SCH (22:14)
[2023-08-01] MEDS: TERAZOSIN HCL 5 MG CAP PO SCH (22:15)
--- NOTE | 2023-08-01 22:25 | Critical Care Consultation ---
Date of Consultation August 01, 2023 Assessment & Plan (1) NSTEMI (non-ST elevated myocardial infarction): Patient with chest pain and elevated troponin. EKG without ST elevation. Evaluated the bedside by interventional cardiology and plan to undergo cardiac catheterization in the morning. He is currently on nitro and heparin drips. If patient were to worsen overnight, may need emergent catheterization. Placement in ICU for further management at this time. -Trend troponins repeat -Continue heparin drip -Continue nitro drip. Titrate for chest pain -EKGs as needed -Continue ASA, Plavix, statin, MTP -Continuous monitor on telemetry (2) Diabetic neuropathy: Continue gabapentin (3) GERD (gastroesophageal reflux disease): Stable. Continue PPI (4) HTN (hypertension): Losartan currently on hold. Continue MTP. (5) HLD (hyperlipidemia): Continue statin (6) DM (diabetes mellitus): Oral agents on hold in favor of sliding scale. ICU hyperglycemic protocol (7) BPH (benign prostatic hyperplasia): Continue finasteride Supervising Physician Co-Signing Physician Notes Patient received 1 stent to the circumflex artery. Echocardiogram reviewed with mildly reduced LV function to 45 to 50%. Cardiology consultation noted. Continue dual antiplatelet therapy, high-dose statin, beta-blockade therapy and ARB. Disposition deferred to cardiology History of Present Illness Attending Physician: Lakhwinder Briceno MD History of Present Illness Patient is a 78-year-old male with past medical history of GERD, HTN, HLD, DM type II, BPH, neuropathy who presented to the emergency department earlier today with acute onset of chest pain. Patient reported at approximately 12 PM this afternoon he began to have crushing chest pain with radiation to the left arm and associated nausea and diaphoresis. He had initially improved but came back as he was walking to the mailbox. After evaluation patient was found to have elevated troponin of 306, no ST elevation on EKG. Patient was evaluated by interventional cardiology. He is currently on nitro drip and heparin drips. Plan to undergo cardiac catheterization tomorrow, unless symptoms were to worsen and then he may be taken emergently. On arrival to the ICU the patient is alert and oriented. He denies further chest pain. He denies current headache or dizziness, recent syncopal events, recent illness or fevers, sore throat or cough, abdominal pain, diarrhea, swelling in hands or feet, changes in gait. He reports no further episodes of chest pain or shortness of breath, nausea or vomiting, or diaphoresis. Patient to remain in ICU for further management at this time. Allergies Allergy/AdvReac Type Severity Reaction Status Date / Time levofloxacin Allergy Unknown HYPERACTIVE, Verified 08/01/23 17:24 JOINT ACHES, CLAUSTERPHOBIC lisinopril Allergy Unknown Unknown Verified 08/01/23 17:24 simvastatin Allergy Unknown Unknown Verified 08/01/23 17:24 hydrocodone AdvReac Unknown Vomiting Verified 08/01/23 17:24 meloxicam AdvReac Unknown SEVERE Verified 08/01/23 17:24 BODY ACHES oxycodone AdvReac Unknown VOMITING Verified 08/01/23 17:24 Home Medications Medication Instructions Recorded Confirmed Type cyanocobalamin (vitamin B-12) 1,000 mcg PO QAM 02/20/18 08/01/23 History 1,000 mcg tablet (Vitamin B-12) finasteride 5 mg tablet (Proscar) 5 mg PO QPM 02/20/18 08/01/23 History qyskgsyl-ahq-cahhqm 5 mg-zeaxanth 1 tab PO QAM 02/20/18 08/01/23 History 1 mg-bilberry 7.5 mg-herbal capsule (Macular Health Formula) omega-3-dha 29 mg-epa 6 mg-fish 1 tab PO QAM 02/20/18 08/01/23 History oil 133 mg-vit D3 100 unit chew tablet (Fish Oil-Vit D3) terazosin 5 mg capsule 5 mg PO HS 02/20/18 08/01/23 History cholecalciferol (vitamin D3) 50 2,000 units PO QAM 04/15/19 08/01/23 History mcg (2,000 unit) capsule ferrous sulfate 325 mg (65 mg 650 mg PO QAM 06/08/20 08/01/23 History iron) tablet aspirin 81 mg tablet,delayed 81 mg PO DAILY 08/25/21 08/01/23 History release (Sarah Low Dose Aspirin) zinc 50 mg tablet 50 mg PO DAILY 08/25/21 08/01/23 History cinnamon bark 500 mg capsule 1,000 mg PO DAILY 03/28/22 08/01/23 History (Cinnamon) naproxen 500 mg tablet 500 mg PO BID #60 tabs 08/18/22 08/01/23 Rx fluticasone propionate 50 1 spray intranasal DAILY #9.9 grams 09/07/22 08/01/23 Rx mcg/actuation nasal spray,suspension (Allergy Relief (fluticasone)) losartan 50 mg tablet 50 mg PO QAM #90 tabs 09/28/22 08/01/23 Rx pantoprazole 40 mg tablet,delayed 40 mg PO DAILY #90 tabs 09/28/22 08/01/23 Rx release sucralfate 1 gram tablet 1 g PO BID #180 tabs 09/28/22 08/01/23 Rx pioglitazone 15 mg tablet (Actos) 15 mg PO DAILY 04/03/23 08/01/23 History gabapentin 300 mg capsule 300 mg PO .COMPLEX #120 caps 04/17/23 08/01/23 Rx (Neurontin) thiamine HCl (vitamin B1) 100 mg 100 mg PO DAILY #90 tabs 05/15/23 08/01/23 Rx tablet (Vitamin B-1) Patient History Medical History Bronchitis Hydrocele Peripheral neuropathy Osteoarthritis Hyperlipidemia Hypertension Multiple pulmonary nodules no further follow up required per pulmonology Chronic back pain HX NUMBNESS IN RIGHT LEG/IMPROVED CURRENT ISSUE PAIN DOWN LEFT LEG Kidney stones hx BPH (benign prostatic hyperplasia) Diabetes mellitus, type 2 DVT (deep venous thrombosis) 2007 AFTER HAVING CYSTO WITH STONE EXTRACTION Surgical History S/P ureteral stent placement (~2001) H/O lithotripsy History of endoscopy History of colonoscopy S/P epidural steroid injection History of sinus surgery History of tonsillectomy History of total shoulder replacement BILATERAL Status post transurethral resection of prostate TUNA PROCEDURE History of arthroscopy RT KNEE, RT SHOULDER, RT ELBOW History of cystoscopy Family History Brother Bladder cancer Lung cancer small cell squamous Asbestosis Father Myocardial infarction Lung cancer Mother Dementia Denies family history of Ovarian cancer Prostate cancer Diabetes Breast cancer Colorectal cancer Social History Smoking Status: Never smoker Cigarettes Per Day: 1979; Second Hand Exposure: No; Do You Dip or Chew Tobacco: No; Tobacco Cessation Education Requested by Patient: No Hx Alcohol Use: No Hx Substance Use: No Preferred Language: Yi Communication Ability: Effective Visual Impairment: Limited Hearing Ability: Use of Hearing Aid Station Chief Required: No Beliefs That Will Affect Care: None marital status: / Current Living Situation: Family current occupational status: retired 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 How many Children do You have: 1 Other Information That Helps Us Care for You: No Feels Safe at Home: Yes Safety Concerns: Feels Safe At This Time Childhood Exposure to Second-Hand Smoke: No Diet: regular caffeine: Yes during the past year weight has: remained stable Dental Care, Regularly: Yes Physical Activity Frequency: Daily Seatbelt Use: always Sunscreen Use: Yes Assistive Devices: None Review of Systems Review of Systems: All systems reviewed & are unremarkable except as noted in HPI & below Physical Exam Constitutional: cooperative and comfortable Eyes: PERRL, conjunctivae normal, anicteric sclerae ENMT: external ear and nose normal, oropharynx normal Neck: trachea midline, no thyromegaly Respiratory: normal respiratory effort, lungs clear to auscultation Cardiovascular: RRR, no murmur, no edema Heart Sounds: normal S1 and normal S2 Vessels: no JVD Gastrointestinal (Abdomen): normal bowel sounds, soft, nontender, no hepatosplenomegaly Musculoskeletal: no cyanosis or clubbing, extremities motor strength 5/5 Skin: no rashes, warm and dry Neurologic: PERRL, EOMI, accommodation nl, no face palsy, no dysarthria Psychiatric: A+Ox3, euthymic affect Results & Data Results & Data Vital Signs (Past 12 Hours) Vital Signs Temp Pulse Pulse Resp BP BP Pulse Ox 08/01/23 21:15 177/89 H 08/01/23 21:15 62 16 08/01/23 21:00 180/104 H 08/01/23 21:00 66 24 97 08/01/23 20:45 64 20 97 08/01/23 20:44 197/98 H 08/01/23 20:44 62 18 97 08/01/23 20:42 66 29 H 97 08/01/23 20:29 36.6 C 71 20 180/104 H 96 08/01/23 20:20 08/01/23 20:00 146/77 H 08/01/23 20:00 66 24 95 08/01/23 19:45 66 22 96 08/01/23 19:45 156/84 H 08/01/23 19:42 70 08/01/23 19:30 67 24 96 08/01/23 19:30 170/97 H 08/01/23 19:15 68 21 96 08/01/23 19:15 161/87 H 08/01/23 19:00 65 17 166/96 H 97 08/01/23 18:45 60 20 169/87 H 97 08/01/23 18:30 70 26 H 187/97 H 08/01/23 18:15 66 24 167/94 H 96 08/01/23 18:00 68 20 167/100 H 96 08/01/23 17:45 70 21 162/95 H 08/01/23 17:44 73 21 149/94 H 08/01/23 17:30 70 22 163/104 H 08/01/23 17:00 72 19 179/98 H 08/01/23 16:30 70 17 201/105 H 98 08/01/23 16:00 67 19 194/98 H 97 08/01/23 15:48 62 08/01/23 15:38 62 25 H 97 08/01/23 15:30 36.9 C 70 25 H 188/96 H 97 O2 Del Method 08/01/23 21:15 08/01/23 21:15 08/01/23 21:00 08/01/23 21:00 08/01/23 20:45 08/01/23 20:44 08/01/23 20:44 08/01/23 20:42 08/01/23 20:29 Room Air 08/01/23 20:20 Room Air 08/01/23 20:00 08/01/23 20:00 08/01/23 19:45 08/01/23 19:45 08/01/23 19:42 08/01/23 19:30 08/01/23 19:30 08/01/23 19:15 08/01/23 19:15 08/01/23 19:00 08/01/23 18:45 08/01/23 18:30 08/01/23 18:15 08/01/23 18:00 08/01/23 17:45 08/01/23 17:44 08/01/23 17:30 08/01/23 17:00 08/01/23 16:30 08/01/23 16:00 08/01/23 15:48 08/01/23 15:38 Room Air 08/01/23 15:30 Room Air Coding Level of Care Code 32759 IN/OBS CONSULT LVL 2,35M Diagnoses NSTEMI (non-ST elevated myocardial infarction) I21.4 Diabetic neuropathy E11.40 GERD (gastroesophageal reflux disease) K21.9 HTN (hypertension) I10 HLD (hyperlipidemia) E78.5 DM (diabetes mellitus) E11.9 BPH (benign prostatic hyperplasia) N40.0 Time Spent (min) 38
[2023-08-01 23:37] LABS: ANTI-Xa, UFH(UnfractionatedHep 0.17 IU/ml (0.3-0.7)
[2023-08-02] MEDS: INSULIN ASPART PER UNIT CHARGE SC SCH ×2 (00:18→17:37)
[2023-08-02] MEDS: HEPARIN IV BOLUS 4,000 UNITS in SYRINGE 0 ML IV ONE (00:19)
[2023-08-02 05:53] LABS: Basophils # (auto) 0.07 K/uL (0.00-0.20); Basophils % (auto) 0.7 %; Eosinophils # (auto) 0.16 K/uL (0.00-0.50); Eosinophils % (auto) 1.7 %; Hematocrit (blood only) 42.6 % (42.0-52.0); Hemoglobin 13.7 g/dl (14.0-18.0); Immature Granulocytes # (auto) 0.07 K/uL (0.01-0.20); Immature Granulocytes % (auto) 0.7 %; Lymphocytes # (auto) 1.26 K/uL (1.20-3.40); Mean Corpuscular Hemoglobin 26.5 pg (25.0-34.0); Mean Corpuscular Hgb Conc 32.2 g/dL (32.0-36.0); Mean Corpuscular Volume 82.4 fL (80.0-100.0); Mean Platelet Volume 10.7 fL (9.4-12.4); Monocytes % (auto) 10.3 %; Neutrophils # (auto) 7.13 K/uL (1.40-6.50); Neutrophils % (auto) 73.6 %; Platelet Count 207 K/uL (130-400); RDW Coefficient of Variation 16.3 % (11.5-14.5); Red Blood Count 5.17 M/uL (4.70-6.10); White Blood Count 9.69 K/ul (4.8-10.8)
[2023-08-02 06:08] LABS: BUN Creatinine Ratio 20.2 (10-20); Calcium 9.3 mg/dl (8.6-10.3); Chol HDL Ratio 3.1 (0-5); Creatinine Clr Calc Pharmacy 86.2 ml/min; Est GFR (African American) 93.6 ml/min; Est GFR (Non-African American) 80.8 ml/min; Magnesium 1.9 mg/dl (1.7-2.4)
[2023-08-02 07:15] LABS: Estimated Average Glucose 157 mg/dl; Hemoglobin A1C 7.1 % (4.5-5.6)
[2023-08-02 07:30] LABS: ANTI-Xa, UFH(UnfractionatedHep 0.33 IU/ml (0.3-0.7)
--- NOTE | 2023-08-02 08:14 | Cardiology Consultation ---
Date of Consultation August 02, 2023 Assessment & Plan (1) NSTEMI (non-ST elevated myocardial infarction): 2. Ischemic cardiomyopathyEF 40 to 45%, lateral/inferolateral wall motion abnormality 3. Type 2 [id number] 7.1, oral therapy 4. Hypertension 5. Dyslipidemia Presentation consistent with high risk NSTEMI. Currently patient chest pain-free, hemodynamically and electrically stable. Plan for cardiac catheterization later today via right radial artery. Procedure discussed with patient including risk, benefits and he is willing to proceed. Please keep n.p.o. Continue heparin infusion until called for procedure. Continue DAPT with aspirin, clopidogrel. Continue current metoprolol, losartan and statin. Further recommendations pending findings of coronary angiography. History of Present Illness Attending Physician: Will Barraza History of Present Illness Mr. Fleming is a very pleasant 78-year-old male seen today in the setting of NSTEMI. Past medical history significant for type 2 diabetes complicated by peripheral neuropathy, hypertension, dyslipidemia and remote provoked DVT. Also with a history of BPH, GERD and lumbar degenerative disc disease, osteoarthritis post bilateral shoulder replacement. No prior cardiac history. Yesterday around noon patient developed acute central chest pain radiating to his bilateral shoulder, back and arms. Pain at its worst 10 out of 10 and associated with 1 episode of vomiting. No prior similar symptoms. Presented to ED where initial ECG showed sinus rhythm without ST abnormalities. Chest CTA negative, heavy coronary artery calcifications. Had a EKG 17:36 which showed subtle inferior ST elevation and ST depression in V2 through V3. ST changes resolved on subsequent ECGs. HS TropI initially 305, has trended up to 8900 this morning. Patient started on nitro drip overnight with resolution of chest pain. Nitro drip weaned off this morning. Currently chest pain-free, feeling well. Echo this morning shows large lateral/inferolateral wall motion abnormality, EF 45%. Social history: Remote tobacco. 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 Allergies Allergy/AdvReac Type Severity Reaction Status Date / Time levofloxacin Allergy Unknown HYPERACTIVE, Verified 08/01/23 17:24 JOINT ACHES, CLAUSTERPHOBIC lisinopril Allergy Unknown Unknown Verified 08/01/23 17:24 simvastatin Allergy Unknown Unknown Verified 08/01/23 17:24 hydrocodone AdvReac Unknown Vomiting Verified 08/01/23 17:24 meloxicam AdvReac Unknown SEVERE Verified 08/01/23 17:24 BODY ACHES oxycodone AdvReac Unknown VOMITING Verified 08/01/23 17:24 Home Medications Medication Instructions Recorded Confirmed Type cyanocobalamin (vitamin B-12) 1,000 mcg PO QAM 02/20/18 08/01/23 History 1,000 mcg tablet (Vitamin B-12) finasteride 5 mg tablet (Proscar) 5 mg PO QPM 02/20/18 08/01/23 History bdfiarsw-azn-ylrtgn 5 mg-zeaxanth 1 tab PO QAM 02/20/18 08/01/23 History 1 mg-bilberry 7.5 mg-herbal capsule (Macular Health Formula) omega-3-dha 29 mg-epa 6 mg-fish 1 tab PO QAM 02/20/18 08/01/23 History oil 133 mg-vit D3 100 unit chew tablet (Fish Oil-Vit D3) terazosin 5 mg capsule 5 mg PO HS 02/20/18 08/01/23 History cholecalciferol (vitamin D3) 50 2,000 units PO QAM 04/15/19 08/01/23 History mcg (2,000 unit) capsule ferrous sulfate 325 mg (65 mg 650 mg PO QAM 06/08/20 08/01/23 History iron) tablet aspirin 81 mg tablet,delayed 81 mg PO DAILY 08/25/21 08/01/23 History release (Sarah Low Dose Aspirin) zinc 50 mg tablet 50 mg PO DAILY 08/25/21 08/01/23 History cinnamon bark 500 mg capsule 1,000 mg PO DAILY 03/28/22 08/01/23 History (Cinnamon) naproxen 500 mg tablet 500 mg PO BID #60 tabs 08/18/22 08/01/23 Rx fluticasone propionate 50 1 spray intranasal DAILY #9.9 grams 09/07/22 08/01/23 Rx mcg/actuation nasal spray,suspension (Allergy Relief (fluticasone)) losartan 50 mg tablet 50 mg PO QAM #90 tabs 09/28/22 08/01/23 Rx pantoprazole 40 mg tablet,delayed 40 mg PO DAILY #90 tabs 09/28/22 08/01/23 Rx release sucralfate 1 gram tablet 1 g PO BID #180 tabs 09/28/22 08/01/23 Rx pioglitazone 15 mg tablet (Actos) 15 mg PO DAILY 04/03/23 08/01/23 History gabapentin 300 mg capsule 300 mg PO .COMPLEX #120 caps 04/17/23 08/01/23 Rx (Neurontin) thiamine HCl (vitamin B1) 100 mg 100 mg PO DAILY #90 tabs 05/15/23 08/01/23 Rx tablet (Vitamin B-1) Patient History Medical History Bronchitis Hydrocele Peripheral neuropathy Osteoarthritis Hyperlipidemia Hypertension Multiple pulmonary nodules no further follow up required per pulmonology Chronic back pain HX NUMBNESS IN RIGHT LEG/IMPROVED CURRENT ISSUE PAIN DOWN LEFT LEG Kidney stones hx BPH (benign prostatic hyperplasia) Diabetes mellitus, type 2 DVT (deep venous thrombosis) 2007 AFTER HAVING CYSTO WITH STONE EXTRACTION Surgical History S/P ureteral stent placement (~2001) H/O lithotripsy History of endoscopy History of colonoscopy S/P epidural steroid injection History of sinus surgery History of tonsillectomy History of total shoulder replacement BILATERAL Status post transurethral resection of prostate TUNA PROCEDURE History of arthroscopy RT KNEE, RT SHOULDER, RT ELBOW History of cystoscopy Family History Brother Bladder cancer Lung cancer small cell squamous Asbestosis Father Myocardial infarction Lung cancer Mother Dementia Denies family history of Ovarian cancer Prostate cancer Diabetes Breast cancer Colorectal cancer Social History Smoking Status: Never smoker Cigarettes Per Day: 1979; Second Hand Exposure: No; Do You Dip or Chew Tobacco: No; Tobacco Cessation Education Requested by Patient: No Hx Alcohol Use: No Hx Substance Use: No Preferred Language: Venezuelan Communication Ability: Effective Visual Impairment: Limited Hearing Ability: Use of Hearing Aid Regional Director Of Admissions Required: No Beliefs That Will Affect Care: None marital status: / Current Living Situation: Family current occupational status: retired 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 How many Children do You have: 1 Other Information That Helps Us Care for You: No Feels Safe at Home: Yes Safety Concerns: Feels Safe At This Time Childhood Exposure to Second-Hand Smoke: No Diet: regular caffeine: Yes during the past year weight has: remained stable Dental Care, Regularly: Yes Physical Activity Frequency: Daily Seatbelt Use: always Sunscreen Use: Yes Assistive Devices: None Review of Systems Review of Systems: All systems reviewed & are unremarkable except as noted in HPI & below Physical Exam Physical Exam: General: Comfortable HEENT: Sclerae anicteric Lungs: Clear to auscultation bilaterally, no crackles or wheezes Cardiac: Regular rate and rhythm, no murmurs. Vascular: 2+ radial Abdomen: Soft, nontender Extremities: Well perfused, no peripheral edema Neuro: Nonfocal Psych: Alert orient x3, normal affect and mood Results & Data Vital Signs (Past 12 Hours) Vital Signs Temp Pulse Pulse Resp BP BP Pulse Ox 08/02/23 05:30 63 23 92 08/02/23 05:00 132/76 08/02/23 05:00 63 22 92 08/02/23 04:30 61 20 93 08/02/23 04:30 135/74 08/02/23 04:00 115/53 L 08/02/23 04:00 59 L 15 91 08/02/23 03:30 62 16 92 08/02/23 03:00 62 18 93 08/02/23 02:30 61 22 91 08/02/23 02:30 143/75 H 08/02/23 02:00 61 18 93 08/02/23 02:00 130/66 08/02/23 01:30 128/60 08/02/23 01:30 61 18 93 08/02/23 01:00 62 19 91 08/02/23 01:00 123/57 L 08/02/23 00:30 107/44 L 08/02/23 00:30 63 17 90 08/02/23 00:00 68 17 08/01/23 23:45 143/69 H 08/01/23 23:45 66 21 08/01/23 23:30 71 25 H 92 08/01/23 23:30 160/81 H 08/01/23 23:15 144/75 H 08/01/23 23:15 66 15 93 08/01/23 23:00 67 11 L 94 08/01/23 22:45 161/85 H 08/01/23 22:45 68 18 94 08/01/23 22:30 172/92 H 08/01/23 22:30 62 19 94 08/01/23 22:15 177/95 H 08/01/23 22:15 64 20 08/01/23 22:00 164/88 H 08/01/23 22:00 65 21 95 08/01/23 21:45 62 22 08/01/23 21:45 173/89 H 08/01/23 21:30 180/88 H 08/01/23 21:30 63 22 08/01/23 21:15 177/89 H 08/01/23 21:15 62 16 08/01/23 21:00 180/104 H 08/01/23 21:00 66 24 97 08/01/23 20:45 64 20 97 08/01/23 20:44 197/98 H 08/01/23 20:44 62 18 97 08/01/23 20:42 66 29 H 97 08/01/23 20:29 97.9 F 71 20 180/104 H 96 08/01/23 20:20 O2 Del Method 08/02/23 05:30 08/02/23 05:00 08/02/23 05:00 08/02/23 04:30 08/02/23 04:30 08/02/23 04:00 08/02/23 04:00 08/02/23 03:30 08/02/23 03:00 08/02/23 02:30 08/02/23 02:30 08/02/23 02:00 08/02/23 02:00 08/02/23 01:30 08/02/23 01:30 08/02/23 01:00 08/02/23 01:00 08/02/23 00:30 08/02/23 00:30 08/02/23 00:00 08/01/23 23:45 08/01/23 23:45 08/01/23 23:30 08/01/23 23:30 08/01/23 23:15 08/01/23 23:15 08/01/23 23:00 08/01/23 22:45 08/01/23 22:45 08/01/23 22:30 08/01/23 22:30 08/01/23 22:15 08/01/23 22:15 08/01/23 22:00 08/01/23 22:00 08/01/23 21:45 08/01/23 21:45 08/01/23 21:30 08/01/23 21:30 08/01/23 21:15 08/01/23 21:15 08/01/23 21:00 08/01/23 21:00 08/01/23 20:45 08/01/23 20:44 08/01/23 20:44 08/01/23 20:42 08/01/23 20:29 Room Air 08/01/23 20:20 Room Air PG Care Time/CCT Total # of Minutes Spent Total Time Spent with Patient: Total time spent is greater than 50% in coordination of care (as documented) at patient's floor/unit and/or counseling patient: Coding Level of Care Code 77177 INT INP/OBS CARE 3/75MIN Diagnoses NSTEMI (non-ST elevated myocardial infarction) I21.4
[2023-08-02] MEDS: ASPIRIN 81 MG ECTAB PO SCH (08:31)
[2023-08-02] MEDS: GABAPENTIN 300 MG CAP PO SCH (08:32)
[2023-08-02] MEDS: CLOPIDOGREL BISULFATE 75 MG TAB PO SCH (08:32)
[2023-08-02] MEDS: LOSARTAN POTASSIUM 50 MG TAB PO SCH (08:32)
[2023-08-02] MEDS: PANTOprazole 40 MG TAB PO SCH (08:32)
[2023-08-02] MEDS: ZINC SULFATE 220 MG CAPSULE PO SCH (08:33)
[2023-08-02] MEDS: THIAMINE HCL 100 MG TAB PO SCH (08:33)
--- NOTE | 2023-08-02 10:09 | Pharmacy Report ---
Pharmacy Glycemic Short Note 2 - Date of Service August 02, 2023 - Glycemic Short BSG Results (Last 24 hours): 08/01/23 08/01/23 08/02/23 15:50 15:55 00:07 Glucose 111 H POC Glucose 150 H POC Glucose (other) 116 H 08/02/23 05:27 Glucose 144 H POC Glucose POC Glucose (other) OUTPATIENT ANTIDIABETIC REGIMEN: * Pioglitazone 15 mg PO AM * HbA1c: 7.1% (08/02/23) ASSESSMENT: * 78 yo M admitted on 08/01/23 secondary to NSTEMI. Pharmacy has been consulted to assist with inpatient glycemic management. Patient is a Type 2 diabetic as an outpatient. Please refer to outpatient regimen and most recent HbA1c above. * BSGs yesterday were 111-116-150 mg/dL. Bolus only regimen ordered overnight as patient was NPO. No insulin given. * Fasting BSG this AM was 144 mg/dL. Remains NPO and will undergo cardiac catheterization this afternoon. Continue to hold basal insulin. PLAN FOR INPATIENT GLYCEMIC CONTROL: * Hold outpatient oral diabetes medications * Basal insulin * None * Bolus insulin * NovoLog per scale ACHS or Q6hrs while NPO * Goal Range: Low 110 mg/dL - High 140 mg/dL * Correction Factor: 45 mg/dL/unit * (holding carb coverage while NPO)
--- OUTSIDE RECORDS SUMMARY | 2023-08-02 10:12 | External Medical Summary | Continuity of Care Document ---
Author Name Unknown Organization [id number] Address [address] [place] [phone] Care Team Providers Care Chip Separator Name Role Phone Alfredo Bradford Primary Care Physician [phone] Encounter [facility] [id number] Date(s): 07/21/23 - 07/21/23 [facility] [address] [place], [place] [id number] [facility] [address] [place] [id number] Encounter Diagnosis Knee effusion, right(Discharge Diagnosis) - 07/21/23 Right knee DJD(Discharge Diagnosis) - 07/21/23 Discharge Disposition: Home or Self Care Attending Physician: DRAGAN Braun, Janiya Bee Allergies, Adverse Reactions, Alerts Substance Reaction Severity Status lisinopril n/a Active simvastatin back pain Active levoFLOXacin hyperactive, chills,joint pain Active meloxicam Back and joint pain Active oxyCODONE upset stomach Active HYDROcodone upset stomach Active Medications Actos 15 mg oral tablet Start: 06/23/22 8:03:00 EST, 1 tab, PO, Daily Start Date: 06/23/22 Status: Ordered aspirin 81 mg oral delayed release tablet Start: 11/07/18 15:17:00 EDT, 1 tab, PO, Daily Start Date: 11/07/18 Status: Ordered cinnamon Start: 06/23/22 8:05:00 EST, PO Start Date: 06/23/22 Status: Ordered EPA Fish Oil Start: 10/11/17 15:21:00 EDT, 1,200 mg =, PO, Daily, with vitamin d 2000 iu Start Date: 10/11/17 Status: Ordered Euflexxa 10 mg/mL intra-articular solution Start: 10/01/18 10:43:00 EDT, 20 mg =, intra-articular, q7days, Disp# 3 syringe, right knee Start Date: 10/01/18 Status: Ordered Alessandro-Iron Start: 10/11/17 15:22:00 EDT, See Instructions, 325 mg daily Start Date: 10/11/17 Status: Ordered finasteride 5 mg oral tablet Start: 10/11/17 15:19:00 EDT, 1 tab, PO, Daily Start Date: 10/11/17 Status: Ordered fluticasone 50 mcg/inh nasal spray Start: 10/30/19 7:51:00 EDT, 1 spray, each nostril, Daily Start Date: 10/30/19 Status: Ordered gabapentin 300 mg oral capsule Start: 08/16/22 11:20:00 EDT, See Instructions, Disp# 90 cap, Refills: 5, TAKE 1 CAPSULE BY MOUTH 3TIMES A DAY. START AFTER FINISHING 100MG DOSE., Pharmacy: [facility] [id number] Start Date: 08/16/22 Status: Ordered losartan 25 mg oral tablet Start: 10/01/18 9:48:00 EDT, 1 tab, PO, Daily Start Date: 10/01/18 Status: Ordered Macular Health Start: 10/11/17 15:21:00 EDT, See Instructions, one tab daily Start Date: 10/11/17 Status: Ordered mupirocin 2% topical ointment APPLY TOPICALLY TO AFFECTED AREA TWICE A DAY NEEDED Start Date: 10/30/19 Status: Ordered naproxen 500 mg (as sodium) oral tablet, extended release Start: 12/07/17 7:52:00 EDT, 2 tab, PO, Daily, PRN: as needed for pain Start Date: 12/07/17 Status: Ordered pantoprazole Start: 06/23/22 8:05:00 EST, See Instructions, 40 mg PO daily Start Date: 06/23/22 Status: Ordered sucralfate 1 g oral tablet Start: 01/29/21 8:52:00 EDT, 1 tab, PO, bid Start Date: 01/29/21 Status: Ordered terazosin 5 mg oral capsule Start: 10/11/17 15:20:00 EDT, 1 cap, PO, Daily Start Date: 10/11/17 Status: Ordered Vitamin B-12 Start: 10/11/17 15:21:00 EDT, 1,000 mcg =, PO, Daily Start Date: 10/11/17 Status: Ordered Vitamin B1 100 mg oral tablet Start: 01/29/21 8:52:00 EDT, 1 tab, PO, Daily Start Date: 01/29/21 Status: Ordered Vitamin D3 Start: 06/23/22 8:04:00 EST, PO, Daily Start Date: 06/23/22 Status: Ordered Zinc Start: 06/23/22 8:05:00 EST Start Date: 06/23/22 Status: Ordered Mental Status 07/21/23 Barriers to Learning one year None evide nt Mandatory Health Literacy Documentation Yes Health Literacy Communication Barriers N ever Primary Language Armenian Problem List Condition Confirmation Course Effective Dates Status H ealth Status Informant 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 Knee effusion, right Confirmed Active Right knee pain Confirmed Active Low back pain Confirmed Active Right lumbar radiculopathy Confirmed Active Right knee DJD Confirmed Active Pain 1 Confirmed Active Thoracic arthritis Confirmed Active 1left shoulder neck back Diagnosis Diagnosis Type Effective Dates Health Status Cl inical Service Informant Knee effusion, right Discharge Diagnosis 07/21/23 Right knee DJD Discharge Diagnosis 07/21/23 Social History Social History Type Response Smoking Status Never smoked cigaret zacarias Sex Male Patient Care team information Care Team Personnel Name: MD Suzette, Alfredo Bhatti Position: Referring Member Role: Primary Care Provider Address: Address: [facility] [address] [place] [address] Care Team Related Persons Name: NIKUNJ SEALS Address: home [address] [place] [phone]
--- OUTSIDE RECORDS SUMMARY | 2023-08-02 10:12 | External Medical Summary | Continuity of Care Document ---
Author Name Unknown Organization [id number] Address [address] [place] [phone] Care Team Providers Care [employer] Name Role Phone Alfredo Bradford Primary Care Physician [phone] Encounter [facility] [id number] Date(s): 07/10/23 - 07/10/23 [facility] [address] [facility] [address] [place] [id number] Encounter Diagnosis Knee effusion, right(Discharge Diagnosis) - 07/10/23 Discharge Disposition: Home or Self Care Attending Physician: DRAGAN Braun Jennifer R Allergies, Adverse Reactions, Alerts Substance Reaction Severity Status lisinopril n/a Active simvastatin back pain Active levoFLOXacin hyperactive, chills,joint pain Active meloxicam Back and joint pain Active oxyCODONE upset stomach Active HYDROcodone upset stomach Active Assessment and Plan Extracted from: Title:Clinical Document Author:DRAGAN Braun Je nnifer R Date:07/10/23 ORTHOPAEDICS OUTPATIENT NOTE Name: GERALDO SEALS Patient Number: [id number] : 1945 Date of Service: 07/10/2023 Chief Complaint: Right knee pain and swelling x 2 days HPI: Geraldo is here today for evaluation of his right knee. He states on Monday he was at [address] and was looking at hot water heaters. He twisted his right knee and felt a sudden sharp pain in the posterior aspect of the knee that almost dropped him to the floor. He states he had a lot of difficulty walking. He was able to go home and then after that subsequently installed a water heater for his grandson. He says that Monday is a little more sore and he continued to have pain and swelling this morning. He called for an appointment and was advised to come in. He states that his knee is improving. He did apply some ice. He took some Naprosyn which she typically does for his back. He states that he is walking a little bit better but still mildly limping. He does have history of having known osteoarthritis with the previous Visco series approximately 5 years ago. He states that those Visco injections really helped his right knee and has not really had pain in the right knee up until Monday. Denies any numbness or tingling. Denies any other injuries. Denies using an assistive device for ambulation. OBJECTIVE Vitals: Last Updated 07/10/23 10:00 Date Temp BP Location Pulse RR SpO2 Pain 07/10/23 8 08/10/22 10 06/23/22 1 Height and Weight: Last Updated 07/10/23 10:00 Date BMI Wt(kg) Wt(lb) Method Ht(cm) (ft-in) Method 07/10/23 36.52 117 257 Standing Scale 179 5-10 06/23/22 33.95 110 242 Standing Scale 180 5-11 01/29/21 35.32 107.05 236 Standing Scale 174.1 5-8 Physical Exam Exam of his right knee: He does have a small effusion to the right knee. No erythema or warmth. He is able to independently straight leg raise and hold against resistance with no extensor lag. He has some mild medial and lateral joint line tenderness with palpation. He is nontender the patellar or quadriceps tendon. He has no varus or valgus instability at 0 and 30 degrees. Calf is supple and mildly tender with palpation in the popliteal fossa area. There is no ecchymosis or erythema in the posterior aspect of the knee. He has full knee extension and flexion with normal strength. Full ankle range of motion with normal strength. Distal pulses are 1+. He ambulates with a slight antalgic gait with no assistive device. Negative Shirley's. Negative Darling. Negative anterior and posterior drawer. Full range of motion of the right hip. No warmth or erythema to the right calf area. No palpable cords. Radiology images: 4 views of the right knee were obtained and show degenerative joint disease with near [id number] changes in the lateral compartment. He has some mild narrowing of the medial compartment as well with osteophyte formation. No evidence of acute bony abnormality such as fracture or dislocation. Right knee effusion is noted. These x-rays are reviewed by myself and discussed with the patient and will be further reviewed by radiologist. ASSESSMENT: Right knee pain with effusion suspect possible rupture of Almanza's cyst. DJD right knee PLAN: He states that he is doing much better today. He thinks that each day is going to continue to improve. I offered him an aspiration of the knee with a cortisone injection which she declined today. He states he would like to see how it does over the next few days. I offered to restart his viscosupplementation series which again he declined as he does feel that his knee will continue to improve. If his symptoms persist would recommend possible aspiration and cortisone injection and then authorizing for viscosupplementation. In the meantime he can do ice or heat. Activities as tolerated. Continue his Naprosyn that he takes normally for his back. Topical Voltaren would be fine if he felt like something like that would be helpful. An fpaz-ein-wsuszio knee sleeve for compression can also be helpful. If his symptoms persist or if pain worsens would recommend calling especially if he develops any increased pain, swelling, redness, warmth or low-grade fever. He understands and agrees with the plan and will follow-up as needed. This chart was completed utilizing [employer] voice recognition software. Grammatical errors, random word insertions, pronoun errors, and in complete sentences are an occasional consequence of the system. Any questions or concerns about the content, text, or information contained within the body of this dictation should be addressed directly to the provider for clarification. Medications Actos 15 mg oral tablet Start: [...] DAY. START AFTER FINISHING 100MG DOSE., Pharmacy: [id number] Start Date: 08/16/22 Status: Ordered losartan 25 [...] PO daily Start Date: 06/23/22 Status: Ordered predniSONE 10 mg oral tablet Start: 08/10/22 8:49:00 EST, See Instructions, Disp# 21 tab, Refills: 0, 60mg PO x 1 day, then 50mgPO x1 day, then 40mg PO x 1 day, then 30mg PO x1 day, then 20mg PO x 1 day, then 10mg PO x 1 day then stop, Pharmacy: [id number] Start Date: 08/10/22 Status: Ordered sucralfate 1 g oral tablet [...] Start Date: 06/23/22 Status: Ordered Mental Status 07/10/23 Barriers to Learning one year None evide nt Mandatory Health Literacy Documentation Yes Health Literacy Communication Barriers N ever Primary Language Faroese Problem List Condition Confirmation Course Effective Dates [...] Service Informant Knee effusion, right Discharge Diagnosis 07/10/23 Vital Signs Most recent to oldest [Reference Range]: 1 Height 179 cm (07/10/23 10:00 AM) Patient Weight 117 kg (07/10/23 10:00 AM) Body Mass Index 36.52 kg/m2 (07/10/23 10:00 AM) Social History Social History Type Response Smoking Status Never smoked cigaret zacarias Sex Male Ortho Outpt Note * DRAGAN Braun Jennifer R: PERFORM Event Display: Ortho Outpt Note Authored Date: [id number] ORTHOPAEDICS OUTPATIENT NOTE Name: GERALDO SEALS Patient Number: [id number] : 1945 Date of Service: 07/10/2023 Chief Complaint: Right knee pain and swelling x 2 days HPI: Geraldo is here today for evaluation of his right knee. He states on Monday he was at [employer] [address] and was looking at hot water heaters. He twisted his right knee and felt a sudden sharp pain in the posterior aspect of the knee that almost dropped him to the floor. He states he had a lot of difficulty walking. He was able to go home and then after that subsequently installed a water heater for his grandson. He says that Monday is a little more sore and he continued to have pain and swelling this morning. He called for an appointment and was advised to come in. He states that his knee is improving. He did apply some ice. He took some Naprosyn which she typically does for his back. He states that he is walking a little bit better but still mildly limping. He does have history of having known osteoarthritis with the previous Visco series approximately 5 years ago. He states that those Visco injections really helped his right knee and has not really had pain in the right knee up until Monday. Denies any numbness or tingling. Denies any other injuries. Denies using an assistive device for ambulation. OBJECTIVE Vitals: Last Updated 07/10/23 10:00 Date Temp BP Location Pulse RR SpO2 Pain 07/10/23 8 08/10/22 10 06/23/22 1 Height and Weight: Last Updated 07/10/23 10:00 Date BMI Wt(kg) Wt(lb) Method Ht(cm) (ft-in) Method 07/10/23 36.52 117 257 Standing Scale 179 5-10 06/23/22 33.95 110 242 Standing Scale 180 5-11 01/29/21 35.32 107.05 236 Standing Scale 174.1 5-8 Physical Exam Exam of his right knee: He does have a small effusion to the right knee. No erythema or warmth. He is able to independently straight leg raise and hold against resistance with no extensor lag. He hassome mild medial and lateral joint line tenderness with palpation. He is nontender the patellar or quadriceps tendon. He has no varus or valgus instability at 0 and 30 degrees. Calf is supple and mildly tender with palpation in the popliteal fossa area. There is no ecchymosis or erythema in the posterior aspect of the knee. He has full knee extension and flexion with normal strength. Full ankle range of motion with normal strength. Distal pulses are 1+. He ambulates with a slight antalgic gait with no assistive device. Negative Shirley's. Negative Darling. Negative anterior and posterior drawer. Full range of motion of the right hip. No warmth or erythema to the right calf area. No palpable cords. Radiology images: 4 views of the right knee were obtained and show degenerative joint disease with near phyp-pr-cpgc changes in the lateral compartment. He has some mild narrowing of the medial compartment as well with osteophyte formation. No evidence of acute bony abnormality such as fracture or dislocation. Right knee effusion is noted. These x-rays are reviewed by myself and discussed with the patient and will be further reviewed by radiologist. ASSESSMENT: Right knee pain with effusion suspect possible rupture of Almanza's cyst. DJD right knee PLAN: He states that he is doing much better today. He thinks that each day is going to continue toimprove. I offered him an aspiration of the knee with a cortisone injection which she declined today. He states he would like to see how it does over the next few days. I offered to restart his viscosupplementation series which again he declined as he does feel that his knee will continue to improve. If his symptoms persist would recommend possible aspiration and cortisone injection and then authorizing for viscosupplementation. In the meantime he can do ice or heat. Activities as tolerated. Continue his Naprosyn that he takes normally for his back. Topical Voltaren would be fine if he felt like something like that would be helpful. An dijk-vrt-etotasu knee sleeve for compression can also be helpful. If his symptoms persist or if pain worsens would recommend calling especially if he develops any increased pain, swelling, redness, warmth or low-grade fever. He understands and agrees withthe plan and will follow-up as needed. This chart was completed utilizing [employer] voice recognition software. Grammatical errors,random word insertions, pronoun errors, and in complete sentences are an occasional consequence of the system. Any questions or concerns about the content, text, or information contained within the body of this dictation should be addressed directly to the provider for clarification. Electronic Signature on File Electronically Reviewed/Signed by: Janiya Braun PA-C Author Signature Dt/Tm:07/10/2023 03:36PM Division of Sports Medicine Electronically Reviewed/Signed by: MD David Camara Signature Dt/Tm: 07/10/2023 05:00 PM Division of Sports Medicine [facility] Patient Care team information Care Team Personnel Name: MD Bradford Stephen J Position: Referring Member Role: Primary Care Provider Address: Address: [facility] [address] [place] [address] Care Team Related Persons Name: NIKUNJ SEALS Address: home [address] [place], [place] [id number]
--- NOTE | 2023-08-02 10:19 | Electrocardiogram Report ---
Test Reason : Blood Pressure : / mmHG Vent. Rate : 068 BPM Atrial Rate : 068 BPM P-R Int : 210 ms QRS Dur : 082 ms QT Int : 396 ms P-R-T Axes : 067 047 076 degrees QTc Int : 421 ms Sinus rhythm with 1st degree A-V block with occasional Premature ventricular complexes Otherwise normal ECG When compared with ECG of 25-AUG-2021 09:37, Premature ventricular complexes are now Present Confirmed by Ra Houston ([id number]) on 08/02/2023 10:19:13 AM Referred By: Confirmed By:Ra Houston
--- NOTE | 2023-08-02 10:21 | Electrocardiogram Report ---
Test Reason : Blood Pressure : / mmHG Vent. Rate : 065 BPM Atrial Rate : 065 BPM P-R Int : 202 ms QRS Dur : 074 ms QT Int : 394 ms P-R-T Axes : 058 038 089 degrees QTc Int : 409 ms Normal sinus rhythm Nonspecific ST and T wave abnormality Abnormal ECG When compared with ECG of 01-AUG-2023 15:38, (unconfirmed) Premature ventricular complexes are no longer Present Confirmed by Ra Houston ([id number]) on 08/02/2023 10:20:55 AM Referred By: REFERRED SELF Confirmed By:Ra Houston
--- NOTE | 2023-08-02 10:34 | Electrocardiogram Report ---
Test Reason : Blood Pressure : / mmHG Vent. Rate : 063 BPM Atrial Rate : 063 BPM P-R Int : 214 ms QRS Dur : 082 ms QT Int : 420 ms P-R-T Axes : 048 037 228 degrees QTc Int : 429 ms Sinus rhythm with 1st degree A-V block Nonspecific T wave abnormality Abnormal ECG When compared with ECG of 01-AUG-2023 17:36, (unconfirmed) Nonspecific T wave abnormality now evident in Inferior leads Nonspecific T wave abnormality, worse in Lateral leads Confirmed by Ra Houston ([id number]) on 08/02/2023 10:34:26 AM Referred By: REFERRED SELF Confirmed By:Ra Houston
--- NOTE | 2023-08-02 10:45 | XCELERA ---
[id number]
[2023-08-02] MEDS: HEPARIN (PORCINE) 1000 UNIT/ML 10 ML (CATH LAB USE ONLY) ONE (16:53)
[2023-08-02] MEDS: MIDAZOLAM HCL 1 MG/ML 2ML VIAL ONE (16:53)
[2023-08-02] MEDS: niCARdipine HCL INJ 2.5 MG/ML 10 ML AMP ONE (16:54)
[2023-08-02] MEDS: OPTIRAY 350 ONE (16:55)
[2023-08-02] MEDS: fentaNYL citrate PF 100 MCG/2 ML VIAL ONE (16:55)
[2023-08-02] MEDS: NITROGLYCERIN/D5W 100MCG/ML 20ML SYR ONE (16:55)
--- NOTE | 2023-08-02 17:09 | Post Anesthesia Assessment ---
Date of Service August 02, 2023 Post Sedation Assessment Vital Signs Temp Pulse Pulse Resp BP BP Pulse Ox 08/02/23 15:48 97.9 F 08/02/23 15:00 141/76 H 08/02/23 15:00 63 21 95 08/02/23 14:00 130/68 08/02/23 14:00 59 L 19 93 08/02/23 13:00 63 21 95 08/02/23 13:00 140/77 08/02/23 12:00 61 24 93 08/02/23 12:00 135/78 08/02/23 11:00 55 L 18 94 08/02/23 11:00 134/81 08/02/23 10:00 58 L 20 95 08/02/23 10:00 143/77 H 08/02/23 09:00 60 18 96 08/02/23 09:00 133/72 08/02/23 08:24 140/77 08/02/23 08:24 65 22 93 08/02/23 08:00 68 25 H 95 08/02/23 07:00 63 24 93 08/02/23 05:30 63 23 92 08/02/23 05:00 132/76 08/02/23 05:00 63 22 92 08/02/23 04:30 61 20 93 08/02/23 04:30 135/74 08/02/23 04:00 115/53 L 08/02/23 04:00 59 L 15 91 08/02/23 03:30 62 16 92 08/02/23 03:00 62 18 93 08/02/23 02:30 61 22 91 08/02/23 02:30 143/75 H 08/02/23 02:00 61 18 93 08/02/23 02:00 130/66 08/02/23 01:30 128/60 08/02/23 01:30 61 18 93 08/02/23 01:00 62 19 91 08/02/23 01:00 123/57 L 08/02/23 00:30 107/44 L 08/02/23 00:30 63 17 90 08/02/23 00:00 68 17 08/01/23 23:45 143/69 H 08/01/23 23:45 66 21 08/01/23 23:30 71 25 H 92 08/01/23 23:30 160/81 H 08/01/23 23:15 144/75 H 08/01/23 23:15 66 15 93 08/01/23 23:00 67 11 L 94 08/01/23 22:45 161/85 H 08/01/23 22:45 68 18 94 08/01/23 22:30 172/92 H 08/01/23 22:30 62 19 94 08/01/23 22:15 177/95 H 08/01/23 22:15 64 20 08/01/23 22:00 164/88 H 08/01/23 22:00 65 21 95 08/01/23 21:45 62 22 08/01/23 21:45 173/89 H 08/01/23 21:30 180/88 H 08/01/23 21:30 63 22 08/01/23 21:15 177/89 H 08/01/23 21:15 62 16 08/01/23 21:00 180/104 H 08/01/23 21:00 66 24 97 08/01/23 20:45 64 20 97 08/01/23 20:44 197/98 H 08/01/23 20:44 62 18 97 08/01/23 20:42 66 29 H 97 08/01/23 20:29 97.9 F 71 20 180/104 H 96 08/01/23 20:20 08/01/23 20:00 146/77 H 08/01/23 20:00 66 24 95 08/01/23 19:45 66 22 96 08/01/23 19:45 156/84 H 08/01/23 19:42 70 08/01/23 19:30 67 24 96 08/01/23 19:30 170/97 H 08/01/23 19:15 68 21 96 08/01/23 19:15 161/87 H 08/01/23 19:00 65 17 166/96 H 97 08/01/23 18:45 60 20 169/87 H 97 08/01/23 18:30 70 26 H 187/97 H 08/01/23 18:15 66 24 167/94 H 96 08/01/23 18:00 68 20 167/100 H 96 08/01/23 17:45 70 21 162/95 H 08/01/23 17:44 73 21 149/94 H 08/01/23 17:30 70 22 163/104 H O2 Del Method 08/02/23 15:48 08/02/23 15:00 08/02/23 15:00 08/02/23 14:00 08/02/23 14:00 08/02/23 13:00 08/02/23 13:00 08/02/23 12:00 08/02/23 12:00 08/02/23 11:00 08/02/23 11:00 08/02/23 10:00 08/02/23 10:00 08/02/23 09:00 08/02/23 09:00 08/02/23 08:24 08/02/23 08:24 08/02/23 08:00 08/02/23 07:00 08/02/23 05:30 08/02/23 05:00 08/02/23 05:00 08/02/23 04:30 08/02/23 04:30 08/02/23 04:00 08/02/23 04:00 08/02/23 03:30 08/02/23 03:00 08/02/23 02:30 08/02/23 02:30 08/02/23 02:00 08/02/23 02:00 08/02/23 01:30 08/02/23 01:30 08/02/23 01:00 08/02/23 01:00 08/02/23 00:30 08/02/23 00:30 08/02/23 00:00 08/01/23 23:45 08/01/23 23:45 08/01/23 23:30 08/01/23 23:30 08/01/23 23:15 08/01/23 23:15 08/01/23 23:00 08/01/23 22:45 08/01/23 22:45 08/01/23 22:30 08/01/23 22:30 08/01/23 22:15 08/01/23 22:15 08/01/23 22:00 08/01/23 22:00 08/01/23 21:45 08/01/23 21:45 08/01/23 21:30 08/01/23 21:30 08/01/23 21:15 08/01/23 21:15 08/01/23 21:00 08/01/23 21:00 08/01/23 20:45 08/01/23 20:44 08/01/23 20:44 08/01/23 20:42 08/01/23 20:29 Room Air 08/01/23 20:20 Room Air 08/01/23 20:00 08/01/23 20:00 08/01/23 19:45 08/01/23 19:45 08/01/23 19:42 08/01/23 19:30 08/01/23 19:30 08/01/23 19:15 08/01/23 19:15 08/01/23 19:00 08/01/23 18:45 08/01/23 18:30 08/01/23 18:15 08/01/23 18:00 08/01/23 17:45 08/01/23 17:44 08/01/23 17:30 Recovery Score Activity: Moves 4 extremities Respiration: Deep Breath/Cough Circulation: +/-20% PreAnes Value Consciousness: Fully Awake Oxygen Saturation: O2 needed for >90% Discharge Sedation Level of Care: Fast Track Phase II Post Sedation Plan On clinical assessment, the patient appears to have tolerated the sedation without complications. Patient is recovering as anticipated. Patient will continue to be monitored by nursing and may be discharged when sedation discharge criteria are met per below protocol. Upon Completions of procedure up to 15 minutes continue every 5 minute vital signs and the P.A.R. score; then discharge to a Phase I or Fast Track to Phase II per the following guidelines: * Discharge Patient to appropriate Phase II area if PAR is 8 or greater or return to pre- procedure baseline. The post - procedure orders will be as directed. * If PAR score is less than 8 or not return to pre-procedure baseline then patient will follow Phase I monitoring till PAR is reached for Phase II. The Phase I may be done in procedure room or may call to secure a Phase I area. * If naloxone or flumazenil are used for reversal, hold in Phase I for continued monitoring from when last reversal dose was given for a minimum of 60 minutes or longer pending the nurse and/or physician discretion of patient condition before discharge to Phase II. Please call the Sedation Physician to re-evaluate and complete post-note for discharge to Phase II area. Do NOT discharge from procedure sedation or Phase 1 until post- sedation evaluation note is complete by procedure /sedation MD Sedation Discharge Instructions to be given to the patient at discharge to home.
--- NOTE | 2023-08-02 17:11 | Post Operative Brief Note ---
Cardiology Brief Post Op Date of Surgery August 02, 2023 Pre & Post Diagnosis NSTEMI Procedure Cardiac cath PCI distal LCx Powerhouse Laborer Dusty Pittman MD Coagulating Operator Farhana Estimated Blood Loss 10 Findings See Below 95+% distal LCx with TROY 2 flow Small OM2 75% Small Apical LAD 90%. Successful PCI of distal circumflex with single drug-eluting stent (2.25 x 12 mm [place]). Complications none Disposition Accompanied Patient To Recovery: No Disposition: Surgical ICU
[2023-08-02] MEDS ORDERED: Nursing to Pharmacy Communication SCH (17:30)
[2023-08-02] MEDS: SODIUM CHLORIDE 0.9% 1,000 ML IV SCH (17:36)
--- NOTE | 2023-08-02 17:58 | Hospitalist Progress Note ---
Date of Service August 02, 2023 Assessment & Plan (1) NSTEMI (non-ST elevated myocardial infarction): Plan: Patient is now chest pain-free after nitroglycerin 0.4 mg sublingual x 2 Nitroglycerin 1 inch paste started to help with his blood pressure and recurrence of chest pain Bed rest Aspirin given in the emergency room, will continue with 81 mg p.o. daily Start metoprolol to tartrate to 25 mg p.o. BID tonight Start high-dose intensity statin with atorvastatin 40 mg p.o. daily Heparin IV low-dose with bolus Consulted cardiology: s/p cardiac cath Summary: 1. Acute 95+% distal circumflex 2. Severe nonculprit coronary artery disease 90% small apical LAD 75% small proximal OM 2 3. Normal intracardiac filling pressure 4. Successful PCI of distal circumflex with single drug-eluting stent (2.25 x 12 mm [place]). Recommendations: Okay to transfer to telemetry Continue dual-antiplatelet therapy for at least 1 year Continue statin, ARB and beta-randall Consult cardiac Rehab (2) DM (diabetes mellitus): Plan: Hemoglobin A1c 6.6 in March 2023, repeat with a.m. labs Discontinue pioglitazone NovoLog for correction factor only, add Lantus dosing if requiring frequent correction (3) GERD (gastroesophageal reflux disease): Plan: Continue pantoprazole 40 mg p.o. daily Carafate 1 g p.o. BID (4) HTN (hypertension): Plan: Continue losartan, Nitropaste as above, metoprolol as above (5) BPH (benign prostatic hyperplasia): Plan: Continue terazosin 5 mg p.o. HS next (6) Lumbar disc disease with radiculopathy: Plan: Continue gabapentin Stop naproxen due to NSTEMI Plan VTE prophylaxis - IV heparin Diet - n.p.o. Disposition - admit to PCU Admission and Anticipated Discharge Date Admission Date: August 01, 2023 Subjective 78 yo male reports tolerating the cardiac cath. Review of Systems Review of Systems: All systems reviewed & are unremarkable except as noted in HPI & below Physical Exam Constitutional: WD/WN, vitals as above Eyes: + anicteric sclerae; normal pupil size ENMT: external ear and nose normal, oropharynx normal Respiratory: normal respiratory effort, lungs clear to auscultation Skin: no rashes, warm and dry Neurologic: moves all extremities and awake; not confused Psychiatric: A+Ox3, euthymic affect Results & Data Results & Data Vital Signs (Past 12 Hours) Vital Signs Temp Pulse Resp BP Pulse Ox 08/02/23 17:45 59 L 29 H 94 08/02/23 17:31 139/77 08/02/23 17:31 63 15 93 08/02/23 17:30 63 13 95 08/02/23 15:48 36.6 C 08/02/23 15:00 141/76 H 08/02/23 15:00 63 21 95 08/02/23 14:00 130/68 08/02/23 14:00 59 L 19 93 08/02/23 13:00 63 21 95 08/02/23 13:00 140/77 08/02/23 12:00 61 24 93 08/02/23 12:00 135/78 08/02/23 11:00 55 L 18 94 08/02/23 11:00 134/81 08/02/23 10:00 58 L 20 95 08/02/23 10:00 143/77 H 08/02/23 09:00 60 18 96 08/02/23 09:00 133/72 08/02/23 08:24 140/77 08/02/23 08:24 65 22 93 08/02/23 08:00 68 25 H 95 08/02/23 07:00 63 24 93 PG Care Time/CCT Total # of Minutes Spent Total Time Spent with Patient: Total time spent is greater than 50% in coordination of care (as documented) at patient's floor/unit and/or counseling patient: Coding Level of Care Code 61075 SUB INP/OBS CARE 2/35MIN Diagnoses NSTEMI (non-ST elevated myocardial infarction) I21.4 DM (diabetes mellitus) E11.9 GERD (gastroesophageal reflux disease) K21.9 HTN (hypertension) I10 BPH (benign prostatic hyperplasia) N40.0 Lumbar disc disease with radiculopathy M51.16
[2023-08-02] MEDS ORDERED: INSULIN ASPART PER UNIT CHARGE SC SCH (21:00)
--- NOTE | 2023-08-02 23:22 | Cardiac Catheterization ---
[facility] Data: Sales Engineer Account Manager Cardiac Status Clinical evaluation leading to the procedure CAD Presenation: Non STEMI Anginal Classification: CCS IV Diagnostic Physicians Name: Dusty Pittman MD Closure Device Recommendations: PCI without planned CABG Cardiac Cath Procedure Full Procedure Date August 02, 2023 Pre-Procedure Diagnosis Pre-Procedure Diagnosis: Non STEMI AUC Score AUC Score: 8 Post-Procedure Diagnosis Post-Procedure Diagnosis: Severe CAD and Successful PCI Procedure(s) Performed Procedure(s) Performed: Coronary Angiography, Left Heart Cath and Drug Eluting Stent Speech Therapy Assistant Dusty Pittman MD Exerciser Horse(s) Farhana Estimated Blood Loss Estimated Blood Loss: 5 Medication(s) Medication(s): Clopidogrel, Fentanyl, Heparin, Nicardipine, Nitroglycerin and Versed Summary of Findings Indication: High risk NSTEMI Access: 6 Fr right radial artery Catheters: [place], EBU 3.5 guide Findings: LM -normal caliber, no significant disease LAD -large caliber, mid segment luminal irregularities, distal vessel tapers as wraps around apex with 90% stenosis. Small, D1 and D2 without significant disease. Medium D3 without disease. Circumflex -medium caliber vessel, mid segment luminal irregularities, 95+% distal acute stenosis at bifurcation with small LBPL1 with TROY II flow. Small OM 2 with 75% stenosis RCA -dominant, mid segment luminal regularities, 30% distal disease, PDA without significant disease. 30% distal RPAV into PLB. LVEDP -14 -- PCI -- Antithrombotic therapy: Heparin, clopidogrel Procedure: Left main cannulated with EBU 3.5 guide Pre-procedure flow TROY 2 Supervisor Fish Bait Processing 50 wire passed across lesion into distal vessel Distal circumflex lesion predilated with 2.0 compliant balloon Dilated lesion stented with 2.25 x 12 mm [place] drug-eluting stent Stent post-dilated with stent balloon IC vasodilators administered for spasm Post procedure TROY 3 flow, stent well expanded with minimal residual stenosis and no apparent cardiac complications. Arterial Closure: TR band Summary: 1. Acute 95+% distal circumflex 2. Severe nonculprit coronary artery disease 90% small apical LAD 75% small proximal OM 2 3. Normal intracardiac filling pressure 4. Successful PCI of distal circumflex with single drug-eluting stent (2.25 x 12 mm [place]). Recommendations: Okay to transfer to telemetry Continue dual-antiplatelet therapy for at least 1 year Continue statin, ARB and beta-randall Consult cardiac Rehab Plan on medical management of small apical LAD, branch vessel disease. If refractory exertional symptoms in the future could consider possible PCI of apical LAD. Hemodynamics Rest Ao:: 115/61/91 Final Ao: 132/66/91 LV: 118/14 Recommendations Recommendations: PCI without planned CABG Specimens Specimens: None Radiation Exposure (mGy) 2806 Contrast (mls) 130 Anesthesia Moderate 7092-9850 Procedural Complication(s) None Disposition PCU I attest to the content of the Intraoperative Record and any orders documented therein. Any exceptions are noted below. [facility] Card Cath Procedure Codes Cardiac Catheterization Procedure 1: Cardiovascular Cath Procedures: 55383 Coronaries and LHC (+/-LV) Moderate Sedation Procedure 1: Sedation/Anesthesia: 36567 Mod Sedation by the same physician;Init15 Min Child Age 5 & Up Procedure 2: Sedation/Anesthesia: 27187 Mod Sedation by the same physician; Ea [id number] Minutes Stenting Procedure 1: Cardiovascular Stent Procedures: 64596 Perc transcatheter placement of intracoronary stent(s), with ang PG Care Time/CCT Total # of Minutes Spent Total Time Spent with Patient: Total time spent is greater than 50% in coordination of care (as documented) at patient's floor/unit and/or counseling patient:
[2023-08-03 05:35] LABS: Creatinine Clr Calc Pharmacy 76.7 ml/min; Est GFR (Non-African American) 70.8 ml/min; Magnesium 1.8 mg/dl (1.7-2.4); Phosphorus 2.6 mg/dl (2.5-4.9); Potassium 3.8 mmol/L (3.5-5.1)
[2023-08-03 05:40] LABS: Basophils # (auto) 0.06 K/uL (0.00-0.20); Basophils % (auto) 0.6 %; Eosinophils # (auto) 0.17 K/uL (0.00-0.50); Eosinophils % (auto) 1.7 %; Hemoglobin 13.4 g/dl (14.0-18.0); Immature Granulocytes # (auto) 0.05 K/uL (0.01-0.20); Immature Granulocytes % (auto) 0.5 %; Lymphocytes # (auto) 1.17 K/uL (1.20-3.40); Lymphocytes % (auto) 11.7 %; Mean Corpuscular Hgb Conc 31.2 g/dL (32.0-36.0); Mean Corpuscular Volume 83.5 fL (80.0-100.0); Mean Platelet Volume 10.8 fL (9.4-12.4); Monocytes # (auto) 1.14 K/uL (0.11-0.59); Monocytes % (auto) 11.4 %; Neutrophils # (auto) 7.44 K/uL (1.40-6.50); Neutrophils % (auto) 74.1 %; Platelet Count 199 K/uL (130-400); RDW Coefficient of Variation 16.5 % (11.5-14.5); RDW Standard Deviation 49.9 fL (36.4-46.3); Red Blood Count 5.15 M/uL (4.70-6.10); White Blood Count 10.03 K/ul (4.8-10.8)
[2023-08-03] MEDS: MAGNESIUM SULFATE / D5W 1 GM/100 ML BAG IV SCH (07:26)
[2023-08-03] MEDS: POTASSIUM CHLORIDE / WTR 10 MEQ/100 ML PLCT IV SCH (07:26)
--- NOTE | 2023-08-03 10:37 | Pharmacy Report ---
Pharmacy Glycemic Short Note 2 - Date of Service August 03, 2023 - Glycemic Short BSG Results (Last 24 hours): 08/02/23 08/02/23 08/02/23 12:23 17:31 21:18 Glucose POC Glucose 136 H 122 H 140 H 08/03/23 08/03/23 04:04 07:23 Glucose 123 H POC Glucose 126 H OUTPATIENT ANTIDIABETIC REGIMEN: * Pioglitazone 15 mg PO AM * HbA1c: 7.1% (08/02/23) ASSESSMENT: : * Geraldo received no insulin yesterday. BSGs were [phone] mg/dL. Patient was NPO most of the day for PCI. * Fasting BSG well controlled at 126 mg/dL this AM. Continue holding basal. Ordered T2DM diet this AM but not eating yet. Will add very loose carb ratio. 08/02: * 78 yo M admitted on 08/01/23 secondary to NSTEMI. Pharmacy has been consulted to assist with inpatient glycemic management. Patient is a Type 2 diabetic as an outpatient. Please refer to outpatient regimen and most recent HbA1c above. * BSGs yesterday were 111-116-150 mg/dL. Bolus only regimen ordered overnight as patient was NPO. No insulin given. * Fasting BSG this AM was 144 mg/dL. Remains NPO and will undergo cardiac catheterization this afternoon. Continue to hold basal insulin. PLAN FOR INPATIENT GLYCEMIC CONTROL: * Hold outpatient oral diabetes medications * Basal insulin * None * Bolus insulin * NovoLog per scale ACHS or Q6hrs while NPO * Goal Range: Low 110 mg/dL - High 140 mg/dL * Correction Factor: 45 mg/dL/unit * Nutritional / Prandial insulin per carb ratio of 1 unit per 15 grams CHO consumed
[2023-08-03 12:59] VITALS: O2SAT 96
--- NOTE | 2023-08-03 13:32 | Electrocardiogram Report ---
Test Reason : Blood Pressure : / mmHG Vent. Rate : 057 BPM Atrial Rate : 057 BPM P-R Int : 204 ms QRS Dur : 078 ms QT Int : 424 ms P-R-T Axes : 062 045 264 degrees QTc Int : 412 ms Sinus bradycardia T wave abnormality, consider inferolateral ischemia Abnormal ECG When compared with ECG of 02-AUG-2023 07:44, Inverted T waves have replaced nonspecific T wave abnormality in Inferior leads Inverted T waves have replaced nonspecific T wave abnormality in Lateral leads Confirmed by Ra Houston ([id number]) on 08/03/2023 1:31:44 PM Referred By: REFERRED SELF Confirmed By:Ra Houston
--- NOTE | 2023-08-03 13:39 | Critical Care Progress Note ---
Date of Service August 03, 2023 Assessment & Plan (1) NSTEMI (non-ST elevated myocardial infarction): Plan Status post successful PCI of distal circumflex with single drug-eluting stent 07/25/2023. Patient on appropriate therapy with dual antiplatelets, beta- blockers and ARB. Patient stable for downgrade or discharge today. Critical care services will sign off. Thank you for the consult. Please call questions Admission and Anticipated Discharge Date Admission Date: August 01, 2023 Subjective Hemodynamically stable. No significant events. Review of Systems Review of Systems: All systems reviewed & are unremarkable except as noted in HPI & below Physical Exam Constitutional: cooperative and comfortable Eyes: PERRL, conjunctivae normal, anicteric sclerae ENMT: external ear and nose normal, oropharynx normal Neck: trachea midline, no thyromegaly Respiratory: normal respiratory effort, lungs clear to auscultation Cardiovascular: RRR, no murmur, no edema Heart Sounds: normal S1 and normal S2 Vessels: no JVD Gastrointestinal (Abdomen): normal bowel sounds, soft, nontender, no hepatosplenomegaly Musculoskeletal: no cyanosis or clubbing, extremities motor strength 5/5 Skin: no rashes, warm and dry Neurologic: PERRL, EOMI, accommodation nl, no face palsy, no dysarthria Psychiatric: A+Ox3, euthymic affect Results & Data Results & Data Vital Signs (Past 12 Hours) Vital Signs Pulse Resp BP Pulse Ox 08/03/23 12:30 116/57 L 08/03/23 12:30 61 13 96 08/03/23 12:00 100/53 L 08/03/23 12:00 63 24 94 08/03/23 11:30 129/65 08/03/23 11:30 67 14 96 08/03/23 11:00 131/65 08/03/23 11:00 58 L 19 94 08/03/23 10:30 129/65 08/03/23 10:30 60 21 94 08/03/23 10:00 135/66 08/03/23 10:00 60 16 93 08/03/23 09:30 129/64 08/03/23 09:30 67 22 94 08/03/23 09:00 72 16 94 08/03/23 09:00 144/73 H 08/03/23 08:30 118/69 08/03/23 08:30 64 20 95 02/29/24 08:03 65 15 93 08/03/23 08:03 128/67 08/03/23 08:00 72 08/03/23 08:00 62 16 93 08/03/23 08:00 150/72 H 08/03/23 07:59 158/71 H 08/03/23 07:59 76 15 92 08/03/23 07:30 81 22 93 08/03/23 07:00 70 15 91 Coding Level of Care Code 67675 SUB INP/OBS CARE 06/29MIN Diagnoses NSTEMI (non-ST elevated myocardial infarction) I21.4
--- NOTE | 2023-08-03 13:50 | Cardiology Progress Note ---
Date of Service August 03, 2023 Assessment & Plan (1) NSTEMI (non-ST elevated myocardial infarction): Plan: Post PCI 08/02/2023 with ARABELLA to distal circumflex Residual small apical LAD, OM 2 disease 2. Ischemic cardiomyopathyEF 45%, lateral/inferolateral wall motion abnormality 3. Type 2 [id number] 7.1, oral therapy 4. Hypertension 5. DyslipidemiaLDL 83 Remains chest pain-free Reviewed telemetry from bradycardic event earlier today. Gradual sinus bradycardia most consistent with vagal episode in the setting of pain at that time No other significant arrhythmia Hemodynamically stable No access site complications From a cardiac standpoint recommend patient out of bed today, up walking halls. If remains stable okay with discharge later this afternoon. On discharge: Continue DAPT with aspirin, clopidogrel Continue current losartan. Transition metoprolol to tartrate to Toprol XL 50 mg daily Continue current atorvastatin. (Sounds like previously intolerant to simvastatin due to joint pain) Consider GLP-1/SGLT2 as an outpatient We discussed cardiac rehab Follow-up with me in 1 to 2 weeks Admission and Anticipated Discharge Date Admission Date: August 01, 2023 Subjective No recurrent chest pain. This morning had episode of bradycardia down to 30s with nausea/vomiting and mild dizziness. No chest pain. Episode occurred in the setting of significant pain while IV potassium was being administered. That IV no longer being used. Since that time feeling well, back to baseline Review of Systems Review of Systems: All systems reviewed & are unremarkable except as noted in HPI & below Physical Exam Physical Exam: General: Comfortable HEENT: Sclerae anicteric Lungs: Clear to auscultation bilaterally, no crackles or wheezes Cardiac: Regular rate and rhythm, no murmurs. Vascular: Right radial artery access site with no ecchymosis, hematoma. Distal pulse and sensation intact. Abdomen: Soft, nontender Extremities: Well perfused, no peripheral edema Neuro: Nonfocal Psych: Alert orient x3, normal affect and mood Results & Data Vital Signs (Past 12 Hours) Vital Signs Pulse Resp BP Pulse Ox 08/03/23 12:30 116/57 L 08/03/23 12:30 61 13 96 08/03/23 12:00 100/53 L 08/03/23 12:00 63 24 94 08/03/23 11:30 129/65 08/03/23 11:30 67 14 96 08/03/23 11:00 131/65 08/03/23 11:00 58 L 19 94 08/03/23 10:30 129/65 08/03/23 10:30 60 21 94 08/03/23 10:00 135/66 08/03/23 10:00 60 16 93 08/03/23 09:30 129/64 08/03/23 09:30 67 22 94 08/03/23 09:00 72 16 94 08/03/23 09:00 144/73 H 08/03/23 08:30 118/69 08/03/23 08:30 64 20 95 08/03/23 08:03 65 15 93 08/03/23 08:03 128/67 08/03/23 08:00 72 08/03/23 08:00 62 16 93 08/03/23 08:00 150/72 H 08/03/23 07:59 158/71 H 08/03/23 07:59 76 15 92 08/03/23 07:30 81 22 93 08/03/23 07:00 70 15 91 PG Care Time/CCT Total # of Minutes Spent Total Time Spent with Patient: Total time spent is greater than 50% in coordination of care (as documented) at patient's floor/unit and/or counseling patient: Coding Level of Care Code 66210 SUB INP/OBS CARE 3/50MIN Diagnoses NSTEMI (non-ST elevated myocardial infarction) I21.4
[2023-08-03] MEDS: GABAPENTIN 300 MG CAP PO SCH (13:55)
--- NOTE | 2023-08-03 14:51 | Discharge Summary ---
Date of Service August 03, 2023 Admission HPI Per Admitting Provider Geraldo Fleming is an 78-year-old male who presents to the ER chest pain. Chest pain started at noon today and is still going on in the emergency room when seen. Initial severity 10/10, currently 6/10 when seen in the emergency department prior to any nitroglycerin. Central chest pressure radiates to his bilateral shoulders, back and arms. Former smoker quit in 1979. Diabetes controlled with HbA1c 6.6 in March 2023. High blood pressure is managed with losartan. He has never had a stroke or a myocardial infarction in the past. Initially told the ER triage that he did not have any ongoing chest pain therefore was not given any nitroglycerin on arrival to the ER. Chest pain now down to 0/10 after x 2 nitroglycerin 0.4 mg sublingual. Discussed care with Dr. Pittman (interventional cardiology) over the phone and at bedside with patient. Principal Diagnosis NSTEMI Discharge Exam Constitutional WD/WN, vitals as above Eyes + anicteric sclerae; normal pupil size ENMT external ear and nose normal, oropharynx normal Respiratory normal respiratory effort, lungs clear to auscultation Skin no rashes, warm and dry Neurologic moves all extremities and awake; not confused Psychiatric A+Ox3, euthymic affect Discharge Data Allergies Allergy/AdvReac Type Severity Reaction Status Date / Time levofloxacin Allergy Unknown HYPERACTIVE, Verified 08/01/23 17:24 JOINT ACHES, CLAUSTERPHOBIC lisinopril Allergy Unknown Unknown Verified 08/01/23 17:24 simvastatin Allergy Unknown Unknown Verified 08/01/23 17:24 hydrocodone AdvReac Unknown Vomiting Verified 08/01/23 17:24 meloxicam AdvReac Unknown SEVERE Verified 08/01/23 17:24 BODY ACHES oxycodone AdvReac Unknown VOMITING Verified 08/01/23 17:24 Consultations 08/01/23 17:36 Consult Cardiology Routine 08/01/23 19:43 ED Decision to Admit Stat 08/01/23 20:04 Consult Nailing Machine Operator Automatic Routine Procedures Performed Operation Date: 08/02/23 13:30 Actual Procedures p Cineradiography w/Routine Exam - Dusty Pittman MD p Cath, Left with Cors and Vent - Dusty Pittman MD p Drug Eluting Stent SGl Vessel - Dusty Pittman MD Ordered Studies 08/01/23 16:07 CT angio chest PE protocol Stat 08/02/23 08:09 CL Cath Imgs for PACS use only Stat Hospital Course (1) NSTEMI (non-ST elevated myocardial infarction): Patient is now chest pain-free after nitroglycerin 0.4 mg sublingual x 2 Nitroglycerin 1 inch paste started to help with his blood pressure and recurrence of chest pain Bed rest Aspirin given in the emergency room, will continue with 81 mg p.o. daily Start metoprolol to tartrate to 25 mg p.o. BID tonight Start high-dose intensity statin with atorvastatin 40 mg p.o. daily Heparin IV low-dose with bolus Consulted cardiology: s/p cardiac cath Summary: 1. Acute 95+% distal circumflex 2. Severe nonculprit coronary artery disease 90% small apical LAD 75% small proximal OM 2 3. Normal intracardiac filling pressure 4. Successful PCI of distal circumflex with single drug-eluting stent (2.25 x 12 mm [place]). Recommendations: Continue dual-antiplatelet therapy for at least 1 year Continue statin, ARB and beta-randall Consult cardiac Rehab (2) DM (diabetes mellitus): Hemoglobin A1c 6.6 in March 2023, (3) GERD (gastroesophageal reflux disease): Continue pantoprazole 40 mg p.o. daily Carafate 1 g p.o. BID (4) HTN (hypertension): Continue losartan, Nitropaste as above, metoprolol as above (5) BPH (benign prostatic hyperplasia): Continue terazosin 5 mg p.o. HS next (6) Lumbar disc disease with radiculopathy: Continue gabapentin Stop naproxen due to NSTEMI may consider tylenol Total Time Total Time Spent Total Time Spent (In Minutes): 32 Discharge Plan Discharge Items Patient Disposition: Home - Self-Care Reason For Visit: NSTEMI Discharge Diagnosis: NSTEMI Activity: Resume your previous activity Non-emergency contact: Primary Care Provider Call non-emergency contact if: you have any medication questions Follow-up/Referrals: Alfredo Bradford MD [Primary Care Provider] - Diet: Carb Consistent or DM2 and Heart Healthy Addtl Attending Provider Instructions: Home Care: * Take your medications exactly as directed. Don't skip doses. * Remember that recovery after a heart attack takes time. Plan to rest for at lease 4-8 weeks while you recover. Then return to normal activity when your doctor says it's okay. * Ask your doctor about joining a heart rehabilitation program. * Tell your doctor if you are feeling depressed. Feelings of sadness are common after a heart attack, but it is important that you speak to someone if you are feeling overwhelmed by these feelings. * If you are having chest pain, call 911 for an ambulance. Do NOT drive yourself to the hospital. * Ask your family members to learn CPR. * Learn to take your own blood pressure and pulse. Keep a record of your results. Ask your doctor when you should seek emergency medical attention. He or she will tell you which blood pressure reading is dangerous. Lifestyle Changes: * Maintain a healthy weight. Get help to lose any extra pounds. * Cut back on salt. * Limit canned, dried, packaged, and fast foods. * Don't add salt to your food. * Season foods with herbs instead of salt when you cook. * Break the smoking habit. Enroll in a stop-smoking program to improve your chances of success. * Limit fatty foods. * Ask your doctor about having your lipid levels checked regularly. * Build up your activity according to your doctor's recommendation. * Ask your doctor when it's okay to resume sexual activity. * Tell your doctor about any erectile dysfunction (ED) medication you are taking. Some ED medications are not safe if you take certain heart medications. * Try to manage stress. Follow Up: It is important for you to keep your follow up appointments with your medical provider. Pending Studies at Discharge: No Stand-Alone Forms: My [facility], Smoking Cessation Medications and DC Order Prescriptions: New atorvastatin 40 mg Tablet 40 mg PO HS Qty: 30 0RF clopidogrel 75 mg Tablet 75 mg PO QAM Qty: 30 0RF metoprolol succinate 50 mg tablet extended release 24 hr 50 mg PO PM Qty: 30 0RF Continued thiamine HCl (vitamin B1) [Vitamin B-1] 100 mg tablet 100 mg PO DAILY Qty: 90 3RF pantoprazole 40 mg tablet,delayed release (DR/EC) 40 mg PO DAILY Qty: 90 3RF losartan 50 mg tablet 50 mg PO QAM Qty: 90 0RF sucralfate 1 gram tablet 1 g PO BID Qty: 180 3RF Rx Instructions: take prior to naproxen pioglitazone [Actos] 15 mg tablet 15 mg PO DAILY ferrous sulfate 325 mg (65 mg iron) tablet 650 mg PO QAM fluticasone propionate [Allergy Relief (fluticasone)] 50 mcg/actuation spray,suspension 1 spray intranasal DAILY Qty: 9.9 1RF Rx Instructions: administer into each nostril once daily cinnamon bark [Cinnamon] 500 mg capsule 1,000 mg PO DAILY cholecalciferol (vitamin D3) 50 mcg (2,000 unit) capsule 2,000 units PO QAM terazosin 5 mg Capsule 5 mg PO HS cyanocobalamin (vitamin B-12) [Vitamin B-12] 1,000 mcg Tablet 1,000 mcg PO QAM finasteride [Proscar] 5 mg Tablet 5 mg PO QPM Fish Oil-Vit D3 29 mg-6 mg-133 mg-100 unit Tablet,Chewable 1 tab PO QAM Macular Health Formula 5-1-7.5 mg Capsule 1 tab PO QAM aspirin [Sarah Low Dose Aspirin] 81 mg Tablet,Delayed Release (Dr/Ec) 81 mg PO DAILY zinc 50 mg Tablet 50 mg PO DAILY Discontinued naproxen 500 mg tablet 500 mg PO BID Qty: 60 0RF Rx Instructions: take after sucralfate No Action gabapentin [Neurontin] 300 mg capsule See Rx Instructions PO .COMPLEX Qty: 120 11RF Rx Instructions: PER PT: TAKES 300MG IN A.M, 300MG AT NOON AND 600MG AT HS. CONFIRMED ON 08/04/23 Discharge Orders: Discharge Order (Routine); Ordered 08/03/23 Ordered By: Will Muller/Other Patient Handouts: Diabetes and Heart Disease, Managing Type 2 Diabetes, Diabetes: Meal Planning, Heart Attack Meds Admission Data Admit Date/Time: 08/01/23 18:25 Attending Provider: Will Barraza Admit Provider: Lakhwinder Briceno Primary Care Provider: Alfredo Bradford Other Providers: Dusty Pittman; Brennan Elliott; Lakhwinder Briceno Other Interventions: Discharge Summary Assessment (RN) Last Done: 08/03/23 14:27 Coding Level of Care Code 26036 INP/OBS DISCH >30 MIN Diagnoses NSTEMI (non-ST elevated myocardial infarction) I21.4 DM (diabetes mellitus) E11.9 GERD (gastroesophageal reflux disease) K21.9 HTN (hypertension) I10 BPH (benign prostatic hyperplasia) N40.0 Lumbar disc disease with radiculopathy M51.16
[2023-08-03 15:18] VITALS: BP 126/71; PULSE 65; RESP 18
== END 2023-08-03 16:02 | disposition home or self-care (01) | DRG 322 ==
LOC: ED 15:24 → SUATTDRO 18:25 → 1E 18:25
DX: E78.5 Hyperlipidemia, unspecified; I25.5 Ischemic cardiomyopathy; I10 Essential (primary) hypertension; Z88.1 Allergy status to other antibiotic agents; M51.16 Intervertebral disc disorders with radiculopathy, lumbar region; K21.9 Gastro-esophageal reflux disease without esophagitis; Z88.5 Allergy status to narcotic agent; I21.4 Non-ST elevation (NSTEMI) myocardial infarction; I25.10 Atherosclerotic heart disease of native coronary artery without angina pectoris; Z79.82 Long term (current) use of aspirin; E11.40 Type 2 diabetes mellitus with diabetic neuropathy, unspecified; Z86.718 Personal history of other venous thrombosis and embolism; N40.0 Benign prostatic hyperplasia without lower urinary tract symptoms

== ENCOUNTER 2025-04-25 09:55 | Observation (INO) ==
[2025-04-25] MEDS: SODIUM CHLORIDE 0.9% 500 ML IV ONE (10:56)
[2025-04-25 11:01] LABS: Hematocrit (blood only) 38.8 % (42.0-52.0); Hemoglobin 13.0 g/dL (14.0-18.0); Immature Granulocytes # (auto) 0.05 K/uL (0.01-0.20); Immature Granulocytes % (auto) 0.5 %; Mean Corpuscular Hemoglobin 28.4 pg (25.0-34.0); Mean Corpuscular Volume 84.7 fL (80.0-100.0); Platelet Count 266 K/uL (130-400); RDW Standard Deviation 42.1 fL (36.4-46.3); Red Blood Count 4.58 M/uL (4.70-6.10); White Blood Count 9.36 K/ul (4.8-10.8)
[2025-04-25 11:20] LABS: Alanine Aminotransferase 6.0 U/L (7-52); Albumin Globulin Ratio 1.1 (0.9-2); Albumin Level 3.7 gm/dl (3.4-5.0); Alkaline Phosphatase 78.0 U/L (34-104); Anion Gap 8.0 (3-11); Bilirubin,Total 0.5 mg/dl (0.2-1.0); Blood Urea Nitrogen 27.0 mg/dl (6-23); Calcium 9.3 mg/dl (8.6-10.3); Carbon Dioxide 24.0 mmol/L (21-32); Chloride 105.0 mmol/L (98-107); Creatinine Clr Calc Pharmacy 56.6 ml/min; Globulin 3.3 gm/dl (2.5-4.0); Glucose 110.0 mg/dl (70-99(Fasting)); Potassium 4.5 mmol/L (3.5-5.1); Sodium 137.0 mmol/L (136-145); Total Protein 7.0 gm/dl (6.0-8.3)
[2025-04-25 11:29] LABS: INR 1.1 (0.9-1.1); Partial Thromboplastin Time 29 Seconds (21-31); Prothrombin Time 11.4 Seconds (9.0-12.0)
--- NOTE | 2025-04-25 11:37 | XRay Report ---
XR chest 1V portable CLINICAL HISTORY: Chest pain, nonspecific COMPARISON STUDY: 12/31/2024 FINDINGS: Stable mild cardiomegaly without pulmonary vascular congestion. No consolidation or pleural effusion. No pneumothorax. Stable right shoulder prosthesis. IMPRESSION: No acute findings. ACT 112: Negative or not required by law. Electronically signed by: Jose Springer M.D. 04/25/2025 11:36 AM
--- NOTE | 2025-04-25 11:41 | Emergency Department Note ---
Impression & Plan Shortness of breath, Dizziness, Elevated BUN, Blood glucose elevated ED Provider Note NAME: MELI SEALS AGE: 80 SEX: M : 1945 ARRIVES VIA: Walk-In INFORMANT: Patient ED PROVIDER(S): Naren Pelletier DO CHIEF COMPLAINT: Dizziness and shortness of breath HPI: Patient is an 16-year-old male who presents to the ER with a past medical history of anemia, BPV, COPD, GERD, diabetes, hypertension and hyperlipidemia who presents to the ER for dizziness. He notes that he has had these episodes for the past month. Notes they come and go intermittently. They do occur at rest and they also occur when he is up moving around. When the episodes occur it is best if he stays still. He notes he has also been getting exertional shortness of breath and dizziness which has been occurring over the past several weeks. Today he was shoveling around 930 he got real short of breath and became dizzy with this and consequently he did come in. He does admit to a history of a previous stent. Denies any chest pain. No focal weakness or numbness in the arms or legs. No other exacerbating or remitting factors. ADDITIONAL HISTORY OBTAINED: Per HPI Chronic Medical/Social Conditions Affecting Care: Per HPI PAST MEDICAL HISTORY:See Below PAST SURGICAL HISTORY:See Below FAMILY HISTORY:See Below SOCIAL HISTORY:See Below HOME MEDICATIONS:See Below ALLERGIES:See Below VITALS:See Below PHYSICAL EXAMINATION: GENERAL: Sitting up in bed, alert, well appearing, well nourished, no distress, non-toxic EYE EXAM: normal conjunctiva. PERRL and EOM's intact. OROPHARYNX: no exudate, no erythema, lips, buccal mucosa, and tongue normal and mucous membranes are moist NECK: supple, no nuchal rigidity, no adenopathy, non-tender LUNGS: Clear to auscultation. Normal chest wall mechanics HEART: no murmurs, S1 normal and S2 normal ABDOMEN: abdomen soft, non-tender, normo-active bowel sounds, no masses, no rebound or guarding. BACK: Back is symmetrical on inspection and there is no deformity, no midline tenderness, no CVA tenderness. SKIN: no rashes and no bruising UPPER EXTREMITIES: upper extremities are grossly normal. LOWER EXTREMITIES: No pitting edema. NEURO EXAM: Normal sensorium, cranial nerves II-XII intact, normal speech, no weakness of arms, no weakness of legs. No drift. Finger to nose intact. Gross sensation intact. MEDICAL DECISION MAKING: Patient is an 80-year-old male who presents ER for exertional shortness of breath and combination with dizziness and near syncope with a past medical history of CAD and NSTEMI and 1 previous stent as well as diabetes hypertension hyperlipidemia. IV was established and blood work is obtained. He is neurologically intact. Labs show no significant leukocytosis. Mild anemia at 13. INR unremarkable. BMP low with LFTs bilirubin was unremarkable. Troponin was normal. TSH unremarkable. Viral panel was negative. CTA of the chest as well as head and neck was performed and was unremarkable. Chest x-ray clean. He was given IV fluids. He was updated bedside. Discussed case with the hospitalist for further evaluation management treatment with the exertional shortness of breath causing dizziness and near syncope. Consults/Care Managements Discussions: Per [facility] Triage Nursing notes reviewed. Limited review of prior medical records performed Vital Signs: reviewed and remarkable for no significant abnormalities Differential diagnosis: Differential diagnoses includes but is not limited to pneumonia, bronchitis, COPD/Asthma exacerbation, pneumothorax, pulmonary embolism, congestive heart failure, acute coronary syndrome Differential diagnosis includes etiologies such as benign positional vertigo, dehydration, hypovolemia, anemia, tumor, infection, hypoglycemia, electrolyte abnormalities, cardiac sources, intracerebral event, toxicologic, neurological, as well as others were entertained. ER treatment provided: See below Diagnostics interpreted by me include EKG and cardiac monitoring as listed below: -Cardiac Monitoring: An order was placed for continuous cardiac monitoring. The monitor shows a rate of 70 with sinus rhythm. -ECG: Sinus rhythm rate 66 Normal axis No PVCs QTc 402 -Laboratory studies:Interpreted by me as stated above in [facility] and shown below. Imaging studies: Xrays: As interpreted by me: Portable AP upright 1 view of the chest shows no focal infiltrate CTs show: CTA of the head neck and chest as described above Procedures:none Critical Care: None Past Med/Surg History Problem List (Updated 04/25/25 @ 16:07 by Naren Pelletier DO) Blood glucose elevated (Acute) Elevated BUN (Acute) Dizziness (Acute) Shortness of breath (Acute) Diabetic neuropathy Benign paroxysmal positional vertigo Lymphopenia Anemia CAD (coronary artery disease) NSTEMI (non-ST elevated myocardial infarction) (Acute) 08/01/23 Cervical pain Periodic limb movement disorder COPD (chronic obstructive pulmonary disease) Diabetic neuropathy GERD (gastroesophageal reflux disease) Osteoarthritis Hearing loss Lumbar disc disease with radiculopathy Iron deficiency anemia Macular degeneration Gout Memory loss Ex-smoker Chronic sinusitis BPH (benign prostatic hyperplasia) DM (diabetes mellitus) HLD (hyperlipidemia) HTN (hypertension) Medical History Laceration of skin of forearm Leg injury Pain On anticoagulant therapy History of COVID-19 Statin intolerance Chronic sinusitis Hx of gout Macular degeneration GERD (gastroesophageal reflux disease) Osteoarthritis Anemia CAD (coronary artery disease) Hx of non-ST elevation myocardial infarction (NSTEMI) Hx of deep venous thrombosis (2007) Peripheral neuropathy Hyperlipidemia Hypertension Multiple pulmonary nodules Chronic back pain Diabetes mellitus, type 2 Surgical History History of cardiac cath H/O elbow surgery H/O arthroscopy of shoulder Status post total shoulder arthroplasty (2009) S/P right knee arthroscopy History of heart artery stent (08/02/23) S/P ureteral stent placement () H/O lithotripsy History of endoscopy History of colonoscopy S/P epidural steroid injection History of sinus surgery History of tonsillectomy Status post transurethral resection of prostate History of cystoscopy Family History Brother Asbestosis Bladder cancer Lung cancer Father Myocardial infarction Lung cancer Mother Dementia Other No family history of adverse response to anesthesia Denies family history of Ovarian cancer Prostate cancer Diabetes Breast cancer Colorectal cancer Social History Smoking Status: Former smoker Tobacco Type: Cigarettes, Smokeless Tobacco (Dip or Chew) and Declines (unable to remember when stopped ) Age Started Using Tobacco: 14; Age Quit Using Tobacco: 34; packs per day: 1; Second Hand Exposure: No; Do You Dip or Chew Tobacco: No (quit ); Hx Alcohol Use: No Hx Substance Use: No Preferred Language: Thai Communication Ability: Effective Visual Impairment: Limited Hearing Ability: Use of Hearing Aid Horse Race Timer Required: No Beliefs That Will Affect Care: None marital status: / Current Living Situation: Alone current occupational status: retired current occupation: Retired How many Children do You have: 1 Feels Safe at Home: Yes Childhood Exposure to Second-Hand Smoke: No Diet: regular caffeine: Yes during the past year weight has: remained stable Dental Care, Regularly: Yes Physical Activity Frequency: Daily Seatbelt Use: always Sunscreen Use: Yes Assistive Devices: Glasses and Hearing Aid - Bilateral Allergies Allergies Allergy/AdvReac Type Severity Reaction Status Date / Time levofloxacin Allergy Unknown HYPERACTIVE, Verified 03/18/25 08:51 JOINT ACHES, CLAUSTERPHOBIC meloxicam AdvReac Severe SEVERE Verified 03/18/25 08:51 BODY ACHES atorvastatin AdvReac Intermediate Muscle Pain Verified 03/18/25 08:51 hydrocodone AdvReac Intermediate Vomiting, Verified 03/18/25 08:51 HYPERACTIVE, JOINT ACHES, CLAUSTERPHOBIC lisinopril AdvReac Intermediate dry cough Verified 03/18/25 08:51 oxycodone AdvReac Intermediate VOMITING Verified 03/18/25 08:51 simvastatin AdvReac Intermediate Muscle Pain Verified 03/18/25 08:51 Home Meds Home Medications Medication Instructions Recorded Confirmed finasteride 5 mg tablet (Proscar) 0 mg PO QPM 02/20/18 04/25/25 [id number] 5 mg-zeaxanth 1 tab PO QAM 02/20/18 04/25/25 1 mg-bilberry 7.5 mg-herbal capsule (Macular Health Formula) terazosin 5 mg capsule 0 mg PO HS 02/20/18 04/25/25 aspirin 81 mg tablet,delayed 81 mg PO QAM 08/25/21 04/25/25 release (Sarah Low Dose Aspirin) zinc 50 mg tablet 50 mg PO QAM 08/25/21 04/25/25 fluticasone propionate 50 1 spray intranasal DAILY PRN 10/04/23 04/25/25 mcg/actuation nasal Allergy Symptoms spray,suspension (Allergy Relief (fluticasone)) amoxicillin 500 mg capsule 2,000 mg PO DIRECTED PRN dental 03/13/24 04/25/25 appointment Cinnamon Complex 2 tab PO QPM 04/04/24 04/25/25 acetaminophen 650 mg 1,300 mg PO BID 04/08/24 04/25/25 tablet,extended release cholecalciferol (vitamin D3) 50 2,000 unit PO QAM 12/31/24 04/25/25 mcg (2,000 unit) capsule meclizine 25 mg tablet 0 mg PO QPM 12/31/24 04/25/25 omega-3s 600 lm-jai-wqj-other 1 cap PO DAILY 02/21/25 04/25/25 [id number] oil 1,200 mg capsule prednisone 20 mg tablet 10 mg PO DAILY 02/21/25 04/25/25 gabapentin 300 mg capsule 300 mg PO UD 04/25/25 04/25/25 (Neurontin) semaglutide 1 mg/dose (4 mg/3 mL) 2 mg subcut UD 04/25/25 04/25/25 subcutaneous pen injector Previous Rx's Medication Instructions Recorded blood sugar diagnostic (OneTouch #50 ea 08/10/23 Ultra Test strips) cyanocobalamin (vitamin B-12) 1,000 mcg PO QAM #90 tabs 05/08/24 1,000 mcg tablet (Vitamin B-12) thiamine HCl (vitamin B1) 100 mg 100 mg PO QAM 90 days #90 tabs 05/10/24 tablet (Vitamin B-1) metoprolol succinate 50 mg 50 mg PO PM #90 tabs 06/12/24 tablet,extended release 24 hr evolocumab 140 mg/mL subcutaneous 140 mg subcut .every 2 weeks #6 mL 07/01/24 pen injector (Elver Ballesteros) pantoprazole 40 mg tablet,delayed 40 mg PO QAM #90 tabs 08/26/24 release losartan 50 mg tablet 50 mg PO DAILY #90 tabs 11/20/24 albuterol sulfate 90 mcg/actuation 2 puff inhalation Q6H PRN 12/31/24 aerosol inhaler shortness of breath or wheezing #6.7 grams naproxen 250 mg tablet 500 mg (2 x 250 mg) PO BID #180 03/21/25 tabs semaglutide 2 mg/dose (8 mg/3 mL) 2 mg (0.75 mL) subcut .weekly #3 mL 03/25/25 subcutaneous pen injector (Ozempic) Results & Data (ED) Vital Signs Vital Signs - 24 hr 04/25/25 10:08 04/25/25 10:50 04/25/25 10:50 Temperature 36.1 C L Temperature Source Temporal Artery Scan Pulse Rate 73 Pulse Rate [Apical] 70 Pulse Rate from SpO2 Sensor Respiratory Rate 18 15 Respiratory Effort / Characteristics Non-Labored Spontaneous Respiratory Depth Normal Blood Pressure 105/61 Blood Pressure [Right Arm] 120/76 Blood Pressure Mean 75 Blood Pressure Mean [Right Arm] 90 Pulse Oximetry 93 96 Oxygen Delivery Method Room Air Room Air Room Air Sepsis Recent Fever Within 48 Hours No Sepsis New/Unexplained Change in Mental Status No Sepsis Action Taken by Nursing No Action Required 04/25/25 10:50 04/25/25 10:59 04/25/25 12:00 Temperature Temperature Source Pulse Rate Pulse Rate [Apical] 58 L Pulse Rate from SpO2 Sensor Respiratory Rate 14 Respiratory Effort / Characteristics Respiratory Depth Blood Pressure Blood Pressure [Right Arm] 115/66 Blood Pressure Mean Blood Pressure Mean [Right Arm] 82 Pulse Oximetry 94 Oxygen Delivery Method Room Air Room Air Room Air Sepsis Recent Fever Within 48 Hours Sepsis New/Unexplained Change in Mental Status Sepsis Action Taken by Nursing 04/25/25 13:00 04/25/25 13:30 04/25/25 13:51 Temperature Temperature Source Pulse Rate 65 60 Pulse Rate [Apical] 65 Pulse Rate from SpO2 Sensor 61 60 Respiratory Rate 14 21 16 Respiratory Effort / Characteristics Respiratory Depth Blood Pressure 120/69 139/76 Blood Pressure [Right Arm] 122/72 Blood Pressure Mean 86 97 Blood Pressure Mean [Right Arm] 88 Pulse Oximetry 97 94 96 Oxygen Delivery Method Room Air Sepsis Recent Fever Within 48 Hours Sepsis New/Unexplained Change in Mental Status Sepsis Action Taken by Nursing 04/25/25 14:00 04/25/25 14:00 04/25/25 14:10 Temperature Temperature Source Pulse Rate 59 L 60 Pulse Rate [Apical] 60 Pulse Rate from SpO2 Sensor 58 L Respiratory Rate 18 14 Respiratory Effort / Characteristics Respiratory Depth Blood Pressure 139/76 Blood Pressure [Right Arm] 139/76 Blood Pressure Mean 97 Blood Pressure Mean [Right Arm] 97 Pulse Oximetry 97 96 Oxygen Delivery Method Room Air Sepsis Recent Fever Within 48 Hours Sepsis New/Unexplained Change in Mental Status Sepsis Action Taken by Nursing 04/25/25 14:12 04/25/25 14:21 04/25/25 14:30 Temperature Temperature Source Pulse Rate 62 62 Pulse Rate [Apical] Pulse Rate from SpO2 Sensor 56 L 62 Respiratory Rate 15 21 Respiratory Effort / Characteristics Respiratory Depth Blood Pressure 138/78 Blood Pressure [Right Arm] Blood Pressure Mean 84 Blood Pressure Mean [Right Arm] Pulse Oximetry 97 97 Oxygen Delivery Method Sepsis Recent Fever Within 48 Hours Sepsis New/Unexplained Change in Mental Status Sepsis Action Taken by Nursing 04/25/25 14:30 04/25/25 14:30 04/25/25 14:30 Temperature Temperature Source Pulse Rate Pulse Rate [Apical] Pulse Rate from SpO2 Sensor Respiratory Rate Respiratory Effort / Characteristics Respiratory Depth Blood Pressure 138/78 138/78 138/78 Blood Pressure [Right Arm] Blood Pressure Mean 84 84 84 Blood Pressure Mean [Right Arm] Pulse Oximetry Oxygen Delivery Method Sepsis Recent Fever Within 48 Hours Sepsis New/Unexplained Change in Mental Status Sepsis Action Taken by Nursing 04/25/25 14:30 04/25/25 14:30 04/25/25 14:42 Temperature Temperature Source Pulse Rate 63 58 L Pulse Rate [Apical] Pulse Rate from SpO2 Sensor 55 L 58 L Respiratory Rate 21 15 Respiratory Effort / Characteristics Respiratory Depth Blood Pressure 138/78 Blood Pressure [Right Arm] Blood Pressure Mean 84 Blood Pressure Mean [Right Arm] Pulse Oximetry 97 96 Oxygen Delivery Method Sepsis Recent Fever Within 48 Hours Sepsis New/Unexplained Change in Mental Status Sepsis Action Taken by Nursing 04/25/25 14:51 04/25/25 15:00 04/25/25 15:00 Temperature Temperature Source Pulse Rate 61 Pulse Rate [Apical] Pulse Rate from SpO2 Sensor 53 L Respiratory Rate 24 Respiratory Effort / Characteristics Respiratory Depth Blood Pressure 138/84 138/84 Blood Pressure [Right Arm] Blood Pressure Mean 118 118 Blood Pressure Mean [Right Arm] Pulse Oximetry 96 Oxygen Delivery Method Sepsis Recent Fever Within 48 Hours Sepsis New/Unexplained Change in Mental Status Sepsis Action Taken by Nursing 04/25/25 15:00 04/25/25 15:00 04/25/25 15:00 Temperature Temperature Source Pulse Rate Pulse Rate [Apical] Pulse Rate from SpO2 Sensor Respiratory Rate Respiratory Effort / Characteristics Respiratory Depth Blood Pressure 138/84 138/84 138/84 Blood Pressure [Right Arm] Blood Pressure Mean 118 118 118 Blood Pressure Mean [Right Arm] Pulse Oximetry Oxygen Delivery Method Sepsis Recent Fever Within 48 Hours Sepsis New/Unexplained Change in Mental Status Sepsis Action Taken by Nursing 04/25/25 15:00 04/25/25 15:12 04/25/25 15:21 Temperature Temperature Source Pulse Rate 87 59 L 56 L Pulse Rate [Apical] Pulse Rate from SpO2 Sensor 63 56 L 56 L Respiratory Rate 23 19 21 Respiratory Effort / Characteristics Respiratory Depth Blood Pressure Blood Pressure [Right Arm] Blood Pressure Mean Blood Pressure Mean [Right Arm] Pulse Oximetry 98 97 96 Oxygen Delivery Method Sepsis Recent Fever Within 48 Hours Sepsis New/Unexplained Change in Mental Status Sepsis Action Taken by Nursing 04/25/25 15:30 04/25/25 15:30 04/25/25 15:30 Temperature Temperature Source Pulse Rate 58 L Pulse Rate [Apical] Pulse Rate from SpO2 Sensor 54 L Respiratory Rate 14 Respiratory Effort / Characteristics Respiratory Depth Blood Pressure 122/78 122/78 Blood Pressure [Right Arm] Blood Pressure Mean 84 84 Blood Pressure Mean [Right Arm] Pulse Oximetry 95 Oxygen Delivery Method Sepsis Recent Fever Within 48 Hours Sepsis New/Unexplained Change in Mental Status Sepsis Action Taken by Nursing 04/25/25 15:30 04/25/25 15:30 04/25/25 15:30 Temperature Temperature Source Pulse Rate Pulse Rate [Apical] Pulse Rate from SpO2 Sensor Respiratory Rate Respiratory Effort / Characteristics Respiratory Depth Blood Pressure 122/78 122/78 122/78 Blood Pressure [Right Arm] Blood Pressure Mean 84 84 84 Blood Pressure Mean [Right Arm] Pulse Oximetry Oxygen Delivery Method Sepsis Recent Fever Within 48 Hours Sepsis New/Unexplained Change in Mental Status Sepsis Action Taken by Nursing 04/25/25 15:56 Temperature Temperature Source Pulse Rate Pulse Rate [Apical] 62 Pulse Rate from SpO2 Sensor Respiratory Rate 20 Respiratory Effort / Characteristics Respiratory Depth Blood Pressure Blood Pressure [Right Arm] 148/81 H Blood Pressure Mean Blood Pressure Mean [Right Arm] 103 Pulse Oximetry 93 Oxygen Delivery Method Sepsis Recent Fever Within 48 Hours Sepsis New/Unexplained Change in Mental Status Sepsis Action Taken by Nursing Laboratory Data 04/25/25 10:35 04/25/25 10:35 Lab Results 04/25/25 04/25/25 Range/Units 10:35 14:40 WBC 9.36 (4.8-10.8) K/ul RBC 4.58 L (4.70-6.10) M/uL Hgb 13.0 L (14.0-18.0) g/dL Hct 38.8 L (42.0-52.0) % MCV 84.7 (80.0-100.0) fL MCH 28.4 (25.0-34.0) pg MCHC 33.5 (32.0-36.0) g/dL RDW Std Deviation 42.1 (36.4-46.3) fL RDW Coeff of Evelio 13.5 (11.5-14.5) % Plt Count 266 (130-400) K/uL MPV 10.5 (9.4-12.4) fL Immature Gran % (Auto) 0.5 % Neut % (Auto) 78.2 % Lymph % (Auto) 8.4 % [place] % (Auto) 10.9 % Eos % (Auto) 1.3 % Baso % (Auto) 0.7 % Neut # (Auto) 7.31 H (1.40-6.50) K/uL Lymph # (Auto) 0.79 L (1.20-3.40) K/uL [place] # (Auto) 1.02 H (0.11-0.59) K/uL Eos # (Auto) 0.12 (0.00-0.50) K/uL Baso # (Auto) 0.07 (0.00-0.20) K/uL Immature Gran # (Auto) 0.05 (0.01-0.20) K/uL PT 11.4 (9.0-12.0) Seconds INR 1.1 (0.9-1.1) APTT 29 (21-31) Seconds PTT Ratio 1.1 Sodium 137 (136-145) mmol/L Potassium 4.5 (3.5-5.1) mmol/L Chloride 105 (98-107) mmol/L Carbon Dioxide 24 (21-32) mmol/L Anion Gap 8 (3-11) BUN 27 H (6-23) mg/dl Creatinine 1.28 (0.6-1.4) mg/dl Est Cr Clr Drug Dosing 56.6 ml/min eGFR 55.88 BUN/Creatinine Ratio 21.1 H (10-20) Glucose 110 H (70-99(Fasting)) mg/dl Calcium 9.3 (8.6-10.3) mg/dl Total Bilirubin 0.5 (0.2-1.0) mg/dl AST 13 (13-39) U/L ALT 6 L (7-52) U/L Alkaline Phosphatase 78 (34-104) U/L Troponin I High Sens 3.0 (0-20) pg/ml Total Protein 7.0 (6.0-8.3) gm/dl Albumin 3.7 (3.4-5.0) gm/dl Globulin 3.3 (2.5-4.0) gm/dl Albumin/Globulin Ratio 1.1 (0.9-2) Procalcitonin < 0.02 (0-0.5) ng/ml TSH 3.650 (0.300-4.500) uIu/ml Adenovirus (PCR) Not Detected (NotDetected) B. pertussis DNA (PCR) Not Detected (NotDetected) B.parapertussis DNA PCR Not Detected (NotDetected) C. pneumoniae DNA (PCR) Not Detected (NotDetected) Coronavirus OC43 (PCR) Not Detected (NotDetected) Coronavirus HKU1 (PCR) Not Detected (NotDetected) Coronavirus 229E (PCR) Not Detected (NotDetected) SARS-CoV-2 (PCR) Not Detected (NotDetected) Coronavirus NL63 (PCR) Not Detected (NotDetected) Human Metapneumovir PCR Not Detected (NotDetected) Influenza Type A (PCR) Not Detected (NotDetected) Influenza Type B (PCR) Not Detected (NotDetected) M. pneumoniae (PCR) Not Detected (NotDetected) Parainfluenza 1 (PCR) Not Detected (NotDetected) Parainfluenza 2 (PCR) Not Detected (NotDetected) Parainfluenza 3 (PCR) Not Detected (NotDetected) Parainfluenza 4 (PCR) Not Detected (NotDetected) RSV (PCR) Not Detected (NotDetected) Entero/Rhino (PCR) Not Detected (NotDetected) Administered Medications Discontinued Medications Sodium Chloride (Nss) 500 mls @ 999 mls/hr IV .Q31M ONE Stop: 04/25/25 11:23 Last Infusion: 04/25/25 14:09 Dose: Infused Documented By: Admin: 04/25/25 10:56 Dose: 999 mls/hr Documented By: AMA Ceftriaxone Sodium (Rocephin) 2,000 mg in 50 mls @ 100 mls/hr IV NOW STA Stop: 04/25/25 14:46 Last Admin: 04/25/25 14:35 Dose: Not Given Documented By: AMA Ioversol (Optiray 320 125ml) 112 ml IV ONCE ONE Stop: 04/25/25 11:48 Last Admin: 04/25/25 11:47 Dose: 112 ml Documented By: DAVE Imaging Data Radiologist's Impression: Chest X-Ray 04/25/25 10:11 XR chest 1V portable CLINICAL HISTORY: Chest pain, nonspecific COMPARISON STUDY: 12/31/2024 FINDINGS: Stable mild cardiomegaly without pulmonary vascular congestion. No consolidation or pleural effusion. No pneumothorax. Stable right shoulder prosthesis. IMPRESSION: No acute findings. ACT 112: Negative or not required by law. Electronically signed by: Jose Springer M.D. 04/25/2025 11:36 AM Head CTA 04/25/25 10:52 CT angio head wo/w CLINICAL HISTORY: dizzy COMPARISON STUDY: 03/13/2024 FINDINGS: Noncontrast head CT: No intracranial hemorrhage seen. No mass effect, midline shift, or hydrocephalus. No skull fracture seen. Stable small osteoma left frontal sinus. Visualized paranasal sinuses and mastoid air cells are clear otherwise. CTA: The distal internal carotid and vertebral arteries are patent. Basilar artery is patent. Anterior, middle, and posterior cerebral arteries are patent bilaterally. No intracranial aneurysm seen. Cerebral venous sinuses opacify normally. IMPRESSION: 1. No acute findings. 2. No significant arterial narrowing or occlusion seen at the brain. ACT 112: Negative or not required by law. Electronically signed by: Jose Springer M.D. 04/25/2025 12:07 PM Neck CTA 04/25/25 10:52 CT angio neck with con CLINICAL HISTORY: 80 years-old Male with dizzy. Acute dizziness COMPARISON STUDY: CT neck 03/13/2024 TECHNIQUE: Following the IV administration of 112 mL of Optiray, CT angiogram of the neck was performed from the aortic arch to the skull base. Images are reviewed in the axial, sagittal, and coronal planes. 3-D MIPS images are created and assessed. IV contrast was administered without complication. All measurements were calculated based on NASCET criteria. A dose lowering technique was utilized adhering to the principles of ALARA. FINDINGS: Three-vessel morphology of the thoracic aortic arch. Patency of the innominate and imaged subclavian arteries. The common carotid arteries are patent. Atherosclerosis of the carotid bulb causes less than 50% stenosis bilaterally. Vertebral arteries are patent and codominant. No aneurysm, dissection, high- grade stenosis or arterial occlusion. Lung apices appear clear. Multilevel degenerative changes of the cervical spine. Unremarkable soft tissues. IMPRESSION:Unremarkable CTA of the neck. ACT 112: Negative or not required by law. The above report was generated using voice recognition software. It may contain grammatical, syntax or spelling errors. Electronically signed by: Ramon Ramirez M.D. 04/25/2025 12:09 PM Chest CTA 04/25/25 10:53 CT ANGIOGRAM OF THE CHEST CLINICAL HISTORY: Dizzy. Evaluate for pulmonary embolus. COMPARISON STUDY: Chest CT August 01, 2023. Chest radiograph performed earlier today. TECHNIQUE: Following the IV administration of 112 cc of Optiray 320, CT angiogram of the chest was performed from the upper abdomen to the thoracic inlet utilizing the pulmonary embolus protocol. Images are reviewed in the axial, sagittal, and coronal planes. 3-D MIPS images are created and assessed. IV contrast was administered without complication. A dose lowering technique was utilized adhering to the principles of ALARA. CT DOSE: 1921.41 mGy.cm FINDINGS: No pulmonary emboli are identified. There is no thoracic aortic dissection. Mild cardiomegaly is again noted. Dilatation of the central pulmonary arteries is unchanged. There is moderate coronary artery calcification. No pneumothorax or pleural effusion is present. Subpleural groundglass opacities represent atelectasis. There is no consolidation to suggest pneumonia. There are no suspicious pulmonary nodules. Numerous small gallstones within the gallbladder are incidentally noted. There is no CT evidence for acute cholecystitis. No acute fractures within the bony thorax. No thoracic lymphadenopathy. Bilateral shoulder arthroplasties are incidentally noted. IMPRESSION: 1. No pulmonary emboli identified. 2. No acute intrathoracic findings. ACT 112: Negative or not required by law. Electronically signed by: Stephen Glynn M.D. 04/25/2025 12:28 PM Discharge Plan Visit Data Chief Complaint: Dizziness Stated Complaint: DIZZINESS, WEAKNESS ED Provider: Naren Pelletier Discharge Problem: Shortness of breath, Dizziness, Elevated BUN, Blood glucose elevated Condition: Fair Forms Stand Alone Forms: My [facility] Prescriptions Prescriptions: No Action cyanocobalamin (vitamin B-12) [Vitamin B-12] 1,000 mcg tablet 1,000 mcg PO QAM Qty: 90 3RF Patient Comments: 04/25- otc unable to verify thiamine HCl (vitamin B1) [Vitamin B-1] 100 mg tablet 100 mg PO QAM 90 Days Qty: 90 3RF metoprolol succinate 50 mg tablet extended release 24 hr 50 mg PO PM Qty: 90 3RF Repatha SureClick 140 mg/mL pen injector 140 mg subcut .every 2 weeks Qty: 6 3RF pantoprazole 40 mg tablet,delayed release (DR/EC) 40 mg PO QAM Qty: 90 3RF losartan 50 mg tablet 50 mg PO DAILY Qty: 90 3RF naproxen 250 mg tablet 500 mg PO BID Qty: 180 3RF Ozempic 2 mg/dose (8 mg/3 mL) pen injector 2 mg subcut .weekly Qty: 3 11RF Patient Comments: filled 04/21 28 day supply fluticasone propionate [Allergy Relief (fluticasone)] 50 mcg/actuation spray,suspension 1 spray intranasal DAILY PRN (Reason: Allergy Symptoms) Patient Comments: 04/25-otc/no fill history unable to verify Rx Instructions: administer into each nostril once daily cholecalciferol (vitamin D3) 50 mcg (2,000 unit) capsule 2,000 unit PO QAM Patient Comments: 04/25- otc unable to verify [id number] oil 600-1,200 mg capsule 1 cap PO DAILY Patient Comments: 04/25- otc unable to verify prednisone 20 mg tablet 10 mg PO DAILY (DME) OneTouch Ultra Test Strip See Rx Instructions .Route Qty: 50 1RF Rx Instructions: test once weekly meclizine 25 mg tablet 0 mg PO QPM Patient Comments: 04/25-otc/no fill history unable to verify. Original: 50 mg po qpm albuterol sulfate 90 mcg/actuation HFA aerosol inhaler 2 puff inhalation Q6H PRN (Reason: shortness of breath or wheezing) Qty: 6.7 0RF terazosin 5 mg Capsule 0 mg PO HS Patient Comments: 04/25- no fill history unable to verify finasteride [Proscar] 5 mg Tablet 0 mg PO QPM Patient Comments: 04/25- no fill history unable to verify Macular Health Formula 5-1-7.5 mg Capsule 1 tab PO QAM Patient Comments: 04/25- otc unable to verify aspirin [Sarah Low Dose Aspirin] 81 mg Tablet,Delayed Release (Dr/Ec) 81 mg PO QAM Patient Comments: 04/25- otc unable to verify zinc 50 mg Tablet 50 mg PO QAM Patient Comments: 04/25- otc unable to verify gabapentin [Neurontin] 300 mg capsule 300 mg PO UD Rx Instructions: PER PT: TAKES 300MG IN A.M, 300MG AT 3PM AND 600MG AT HS. semaglutide 1 mg/dose (4 mg/3 mL) pen injector 2 mg subcut UD Patient Comments: filled 03/29 28 day supply amoxicillin 500 mg capsule 2,000 mg PO DIRECTED PRN (Reason: dental appointment ) Patient Comments: 04/25- no fill history unable to verify Cinnamon Complex 2 tab PO QPM Patient Comments: 04/25- otc unable to verify acetaminophen [Tylenol Arthritis] 650 mg Tablet Extended Release 1,300 mg PO BID Patient Comments: 04/25- otc unable to verify Referrals Referrals: Alfredo Bradford MD [Primary Care Provider] -
[2025-04-25] MEDS: OPTIRAY 320 125ml IV ONE (11:47)
--- NOTE | 2025-04-25 12:09 | CT Scan Report ---
CT angio head wo/w CLINICAL HISTORY: dizzy COMPARISON STUDY: 03/13/2024 FINDINGS: Noncontrast head CT: No intracranial hemorrhage seen. No mass effect, midline shift, or hydrocephalus . No skull fracture seen. Stable small osteoma left frontal sinus. Visualized paranasal sinuses and m astoid air cells are clear otherwise. CTA: The distal internal carotid and vertebral arteries are patent. Basilar artery is patent. Anterio r, middle, and posterior cerebral arteries are patent bilaterally. No intracranial aneurysm seen. Cer ebral venous sinuses opacify normally. IMPRESSION: 1. No acute findings. 2. No significant arterial narrowing or occlusion seen at the brain. ACT 112: Negative or not required by law. Electronically signed by: Jose Springer M.D. 04/25/2025 12:07 PM
--- NOTE | 2025-04-25 12:10 | CT Scan Report ---
CT angio neck with con CLINICAL HISTORY: 80 years-old Male with dizzy. Acute dizziness COMPARISON STUDY: CT neck 03/13/2024 TECHNIQUE: Following the IV administration of 112 mL of Optiray, CT angiogram of the neck was perform ed from the aortic arch to the skull base. Images are reviewed in the axial, sagittal, and coronal pl anes. 3-D MIPS images are created and assessed. IV contrast was administered without complication. Al l measurements were calculated based on NASCET criteria. A dose lowering technique was utilized adhe ring to the principles of ALARA. FINDINGS: Three-vessel morphology of the thoracic aortic arch. Patency of the innominate and imaged subclavian arteries. The common carotid arteries are patent. Atherosclerosis of the carotid bulb causes less yoav n 50% stenosis bilaterally. Vertebral arteries are patent and codominant. No aneurysm, dissection, hi gh-grade stenosis or arterial occlusion. Lung apices appear clear. Multilevel degenerative changes of the cervical spine. Unremarkable soft ti ssues. IMPRESSION:Unremarkable CTA of the neck. ACT 112: Negative or not required by law. The above report was generated using voice recognition software. It may contain grammatical, syntax o r spelling errors. Electronically signed by: Ramon Ramirez M.D. 04/25/2025 12:09 PM
--- NOTE | 2025-04-25 12:30 | CT Scan Report ---
CT ANGIOGRAM OF THE CHEST CLINICAL HISTORY: Dizzy. Evaluate for pulmonary embolus. COMPARISON STUDY: Chest CT August 01, 2023. Chest radiograph performed earlier today. TECHNIQUE: Following the IV administration of 112 cc of Optiray 320, CT angiogram of the chest was pe rformed from the upper abdomen to the thoracic inlet utilizing the pulmonary embolus protocol. Images are reviewed in the axial, sagittal, and coronal planes. 3-D MIPS images are created and assessed. I V contrast was administered without complication. A dose lowering technique was utilized adhering to the principles of ALARA. CT DOSE: 1921.41 mGy.cm FINDINGS: No pulmonary emboli are identified. There is no thoracic aortic dissection. Mild cardiomega ly is again noted. Dilatation of the central pulmonary arteries is unchanged. There is moderate coron marcial artery calcification. No pneumothorax or pleural effusion is present. Subpleural groundglass opac ities represent atelectasis. There is no consolidation to suggest pneumonia. There are no suspicious pulmonary nodules. Numerous small gallstones within the gallbladder are incidentally noted. There is no CT evidence for acute cholecystitis. No acute fractures within the bony thorax. No thoracic lympha denopathy. Bilateral shoulder arthroplasties are incidentally noted. IMPRESSION: 1. No pulmonary emboli identified. 2. No acute intrathoracic findings. ACT 112: Negative or not required by law. Electronically signed by: Stephen Glynn M.D. 04/25/2025 12:28 PM
[2025-04-25] MEDS ORDERED: ACETAMINOPHEN 325 MG TAB PO PRN (14:08)
[2025-04-25] MEDS ORDERED: ALBUTEROL HFA 8 GM INHALER INH PRN (14:12)
[2025-04-25] MEDS: cefTRIAXone SODIUM 2,000 MG/50 ML BAG IV STA (14:35)
[2025-04-25 14:47] LABS: Thyroid Stimulating Hormone 3.65 uIu/ml (0.300-4.500)
[2025-04-25 15:38] LABS: Chlamydia pneumoniae PCR Not Detected (NotDetected); Coronavirus 229E PCR Not Detected (NotDetected); Coronavirus CoV-2 (COVID19)PCR Not Detected (NotDetected); Coronavirus HKU1 PCR Not Detected (NotDetected); Coronavirus NL63 PCR Not Detected (NotDetected); Coronavirus OC43PCR Not Detected (NotDetected); Human Metapneumovirus PCR Not Detected (NotDetected); Parainfluenza Virus 1 PCR Not Detected (NotDetected); Parainfluenza Virus 2 PCR Not Detected (NotDetected); Parainfluenza Virus 3 PCR Not Detected (NotDetected); Parainfluenza Virus 4 PCR Not Detected (NotDetected); Respiratory Syncytial VirusPCR Not Detected (NotDetected); Rhinovirus/Enterovirus PCR Not Detected (NotDetected)
[2025-04-25 18:05] LABS: Appearance Urine Clear (Clear); Glucose Urine UA Negative (Negative)
--- NOTE | 2025-04-25 20:00 | History & Physical Report ---
Date of Service April 25, 2025 Assessment & Plan (1) Dizziness: Plan: As above in the History of Present Illness. (2) Dehydration: Plan: As above in the History of Present Illness. Admission and Anticipated Discharge Date Admission Date: April 25, 2025 History of Present Illness Chief Complaint: "I felt dizzy this morning (04/25/2025, 9:00am); the room was not spinning around me. I was not seeing double. I really think that I overworked myself yesterday (04/24/2025, 9:00am to 1:30pm) where I was actually installing house trusses for a roof in [place], that I am building for [employer] for [email or web address]. 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 I know I am not 18 years old anymore. I am 80 years young. I feel fine now. Can I go home tomorrow morning?" Primary Care Provider: Alfredo Bradford MD 80 years old male with PMH of FULL CODE @ home, obesity with BMI 33.4 (height 181.6 cm; weight 110.1 kg), former tobacco abuse with no subsequent diagnosis of COPD, not on home oxygen or home steroids, GERD on protonix 40mg PO daily, BPH on finasteride 5mg PO qpm and terazosin 5mg PO qhs, diabetic neuropathy on gabapentin 300mg PO daily, non-insulin dependent DM2 with HbA1c 6.4% (03/11/2025, 8:10am) on semaglutide 2mg SQ weekly, HTN on losartan 50mg PO daily and metoprolol succinate 50mg PO qpm, CAD s/p acute NSTEMI, s/p successful PCI of distal circumflex with 2.25 x 12 mm [place] drug-eluting stent (08/02/2023, 5:09pm, [facility] Interventional CARDS Dr. Dusty Pittman), now on ASA 81mg PO daily and evolocumab 140mg SQ q14 days, and intermittent dizziness on meclizine 25mg PO qpm, who reports: "I felt dizzy this morning (04/25/2025, 9:00am); the room was not spinning around me. I was not seeing double. I really think that I overworked myself yesterday (04/24/2025, 9:00am to 1:30pm) where I was actually installing house trusses for a roof in [place], that I am building for [employer] for [email or web address]. 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 I know I am not 18 years old anymore. I am 80 years young. I feel fine now. Can I go home tomorrow morning?" Patient denies antecedent/coincident fevers, chills, diaphoresis, cough, wheeze, sore throat, hemoptysis, SOB/HOPKINS, chest pains, palpitations, pleurisy, nausea, vomiting, diarrhea, abdominal pain, pelvic pain, hematemesis, hematochezia, melena, hematuria, dysuria, frequency, urgency, headaches, lightheadedness, visual changes, hearing changes, weakness, falls, syncope, trauma, travel history, sick contacts, or food/drug ingestions novel or new. All other review of systems are reported as negative by the patient on observation date 04/25/2025. Patient subsequently drove himself from his home to [facility] ER to have his dizziness checked out. In [facility] ER bed #B2, patient was afebrile @ 36.1 degrees, HR 73, RR 18, BP 105/61, and O2 saturation 93% on room air (04/25/2025, 10:08am). Exam was noted for the absence of nystagmus, gaze paresis, anisocoria, miosis, mydriasis, hyphema, scleral injection, conjunctivitis, or pterygium. Patient remained wide awake and alert and with no dysarthria, facial droop, or pronator drift. Exam was completely unremarkable. Labs in [facility] ER bed #B2 included: WBC 9.36, N78 L8 M11 E1 B1, Hb 13.0, MCV 84.7, MCHC 33.5, platelet 206 (04/25/2025, 10:35am). Na 137, K 4.5, CO2 24, BUN 27, creatinine 1.28, GFR 55.88, glucose 110, Ca 9.3, AST 13, ALT 6, ALK PHOS 78, total bili 0.5 (04/25/2025, 10:35am). Troponin-I #1 3.0 pg/mL (04/25/2025, 10:35am). Troponin-I #2 2.6 pg/mL (04/25/2025, 4:24pm). BNP 77 pg/mL (04/25/2025, 4:24pm). Lactic acid #1 1.3 mmol/L (04/25/2025, 4:24pm). Procalcitonin #1 < 0.02 ng/mL (04/25/2025, 10:35am). TSH 3.650 uIU/mL (04/25/2025, 10:35am). U/A: LE-, nitrite- (04/25/2025, 5:53pm). D-dimer 3,540 ug/L (04/25/2025, 4:25pm). Additional testing in [facility] ER bed #B2 included: Portable CXR (04/25/2025, 10:11am): 1. No infiltrate, effusion, cardiomegaly, pulmonary vascular congestion, or pneumothorax (by my review). CTA head (04/25/2025, 10:11am): 1. No acute findings. 2. No significant arterial narrowing or occlusion seen at the brain. CTA neck (04/25/2025, 10:11am): 1. No acute findings. CTA chest (04/25/2025, 10:11am): 1. No pulmonary emboli identified. 2. No acute intrathoracic findings. Patient was subsequently placed in OBSERVATION on the hospitalist service @ [facility] on 04/25/2025 with the following diagnoses: 1. Dizziness of unclear etiology. 2. Acute dehydration with BUN:creatinine ratio > 20:1 (cf., BUN 27, creatinine 1.28, 04/25/2025, 10:35am). To address #1, patient was treated supportively with his home-scheduled meclizine 25mg PO qpm. Patient was also advised to abstain from physical labor such as installing house/roof trusses for [employer], or any other operation/outfit, for that matter, as patient's muscles are all 80 years old muscles, all worn-out and run-down. Patient concedes the point. To address #2, patient received 1 liter of 0.9% NS @ 999 mL/hr (04/25/2025, 10:56am), followed a cup of cool water without ice, a turkey sandwich with mayonnaise, and then a heart healthy supper. I will check repeat BUN:creatinine ratio in the 04/26/2025 am. Allergies Allergy/AdvReac Type Severity Reaction Status Date / Time levofloxacin Allergy Unknown HYPERACTIVE, Verified 03/18/25 08:51 JOINT ACHES, CLAUSTERPHOBIC meloxicam AdvReac Severe SEVERE Verified 03/18/25 08:51 BODY ACHES atorvastatin AdvReac Intermediate Muscle Pain Verified 03/18/25 08:51 hydrocodone AdvReac Intermediate Vomiting, Verified 03/18/25 08:51 HYPERACTIVE, JOINT ACHES, CLAUSTERPHOBIC lisinopril AdvReac Intermediate dry cough Verified 03/18/25 08:51 oxycodone AdvReac Intermediate VOMITING Verified 03/18/25 08:51 simvastatin AdvReac Intermediate Muscle Pain Verified 03/18/25 08:51 Home Medications Medication Instructions Recorded Confirmed Type finasteride 5 mg tablet (Proscar) 0 mg PO QPM 02/20/18 04/25/25 History [id number] 5 mg-zeaxanth 1 tab PO QAM 02/20/18 04/25/25 History 1 mg-bilberry 7.5 mg-herbal capsule ([employer] [facility] Formula) terazosin 5 mg capsule 0 mg PO HS 02/20/18 04/25/25 History aspirin 81 mg tablet,delayed 81 mg PO QAM 08/25/21 04/25/25 History release (Sarah Low Dose Aspirin) zinc 50 mg tablet 50 mg PO QAM 08/25/21 04/25/25 History blood sugar diagnostic (OneTouch #50 ea 08/10/23 03/18/25 Rx Ultra Test strips) fluticasone propionate 50 1 spray intranasal DAILY PRN 10/04/23 04/25/25 History mcg/actuation nasal Allergy Symptoms spray,suspension (Allergy Relief (fluticasone)) amoxicillin 500 mg capsule 2,000 mg PO DIRECTED PRN dental 03/13/24 04/25/25 History appointment Cinnamon Complex 2 tab PO QPM 04/04/24 04/25/25 History acetaminophen 650 mg 1,300 mg PO BID 04/08/24 04/25/25 History tablet,extended release cyanocobalamin (vitamin B-12) 1,000 mcg PO QAM #90 tabs 05/08/24 04/25/25 Rx 1,000 mcg tablet (Vitamin B-12) thiamine HCl (vitamin B1) 100 mg 100 mg PO QAM 90 days #90 tabs 05/10/24 04/25/25 Rx tablet (Vitamin B-1) metoprolol succinate 50 mg 50 mg PO PM #90 tabs 06/12/24 04/25/25 Rx tablet,extended release 24 hr evolocumab 140 mg/mL subcutaneous 140 mg subcut .every 2 weeks #6 mL 07/01/24 04/25/25 Rx pen injector (Elver Ballesteros) pantoprazole 40 mg tablet,delayed 40 mg PO QAM #90 tabs 08/26/24 04/25/25 Rx release losartan 50 mg tablet 50 mg PO DAILY #90 tabs 11/20/24 04/25/25 Rx albuterol sulfate 90 mcg/actuation 2 puff inhalation Q6H PRN 12/31/24 04/25/25 Rx aerosol inhaler shortness of breath or wheezing #6.7 grams cholecalciferol (vitamin D3) 50 2,000 unit PO QAM 12/31/24 04/25/25 History mcg (2,000 unit) capsule meclizine 25 mg tablet 0 mg PO QPM 12/31/24 04/25/25 History omega-3s 600 ro-jxc-nja-other 1 cap PO DAILY 02/21/25 04/25/25 History dhvyo3e-wjav oil 1,200 mg capsule prednisone 20 mg tablet 10 mg PO DAILY 02/21/25 04/25/25 History naproxen 250 mg tablet 500 mg (2 x 250 mg) PO BID #180 03/21/25 04/25/25 Rx tabs semaglutide 2 mg/dose (8 mg/3 mL) 2 mg (0.75 mL) subcut .weekly #3 mL 03/25/25 04/25/25 Rx subcutaneous pen injector (Ozempic) gabapentin 300 mg capsule 300 mg PO UD 04/25/25 04/25/25 History (Neurontin) semaglutide 1 mg/dose (4 mg/3 mL) 2 mg subcut UD 04/25/25 04/25/25 History subcutaneous pen injector Past Med/Surg History Problem List (Updated 04/25/25 @ 20:43 by Thomas Maynard MD, PhD) Dehydration Dizziness Blood glucose elevated (Acute) Elevated BUN (Acute) Dizziness (Acute) Shortness of breath (Acute) Diabetic neuropathy Benign paroxysmal positional vertigo Lymphopenia Anemia CAD (coronary artery disease) NSTEMI (non-ST elevated myocardial infarction) (Acute) 08/01/23 Cervical pain Periodic limb movement disorder COPD (chronic obstructive pulmonary disease) Diabetic neuropathy GERD (gastroesophageal reflux disease) Osteoarthritis Hearing loss Lumbar disc disease with radiculopathy Iron deficiency anemia Macular degeneration Gout Memory loss Ex-smoker Chronic sinusitis BPH (benign prostatic hyperplasia) DM (diabetes mellitus) HLD (hyperlipidemia) HTN (hypertension) Medical History Laceration of skin of forearm Leg injury 01/04/24 Pain On anticoagulant therapy History of COVID-2022: mild symptoms. resolved. Statin intolerance Chronic sinusitis Hx of gout Macular degeneration GERD (gastroesophageal reflux disease) controlled Osteoarthritis Anemia "borderline" - reason for upcoming procedure CAD (coronary artery disease) Hx of non-ST elevation myocardial infarction (NSTEMI) NSTEMI 08/01/2023, treated at [facility] Hx of deep venous thrombosis (2007) s/p cysto with stone extraction - no problems since. Peripheral neuropathy Hyperlipidemia Hypertension Multiple pulmonary nodules no further follow up required per pulmonology Chronic back pain Diabetes mellitus, type 2 NIDDM Surgical History History of cardiac cath July 2023 - with 1 stent placement, follows with Dr. Pittman. H/O elbow surgery ulnar nerve decompression H/O arthroscopy of shoulder Status post total shoulder arthroplasty (2009) bilateral S/P right knee arthroscopy History of heart artery stent (08/02/23) one stent placed at [facility] S/P ureteral stent placement (~2001) H/O lithotripsy History of endoscopy History of colonoscopy S/P epidural steroid injection lumbar - multiple History of sinus surgery History of tonsillectomy Status post transurethral resection of prostate TUNA PROCEDURE History of cystoscopy Family History (Updated 04/25/25 @ 20:40 by Thomas Maynard MD, PhD) Brother Asbestosis Bladder cancer Lung cancer small cell squamous Father , at 67 years of age from lung cancer that metastasized to the liver in the setting of tobacco abuse, but no subsequent diagnosis of COPD, not on home O2 or home steroids, but which also lead to an acute NC. No DM or HTN. Myocardial infarction Lung cancer Mother , at 91 years of age from natural causes in the setting of former tobacco abuse, but no subsequent diagnosis of COPD, not on home O2 or home steroids. Dementia Other No family history of adverse response to anesthesia Denies family history of Ovarian cancer Prostate cancer Diabetes Breast cancer Colorectal cancer Social History (Updated 04/25/25 @ 20:42 by Thomas Maynard MD, PhD) Smoking Status: Former smoker Tobacco Type: Cigarettes, Smokeless Tobacco (Dip or Chew) and Declines (unable to remember when stopped ) Age Started Using Tobacco: 14; Age Quit Using Tobacco: 34; packs per day: 1; Second Hand Exposure: No; Do You Dip or Chew Tobacco: No (quit ); Hx Alcohol Use: No Hx Substance Use: No Preferred Language: Maldivian Communication Ability: Effective Visual Impairment: Limited Hearing Ability: Use of Hearing Aid Drier Operator Required: No Beliefs That Will Affect Care: None marital status: / marital status details: 56y; (2021) Current Living Situation: Alone current occupational status: retired 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 How many Children do You have: 1 How many Children do You have Comment: 56y daughter with hemiplegic migraine BURKS and hypothyroidism Feels Safe at Home: Yes Childhood Exposure to Second-Hand Smoke: No Diet: regular caffeine: Yes during the past year weight has: remained stable Dental Care, Regularly: Yes Physical Activity Frequency: Daily Seatbelt Use: always Sunscreen Use: Yes Assistive Devices: Glasses and Hearing Aid - Bilateral Review of Systems Constitutional: As above in the History of Present Illness. Physical Exam Constitutional: General: Comfortable, coherent, cooperative. Wide awake and alert. Not confused, lethargic, or obtunded. Patient speaks in complete, fluent, and articulate sentences without pause, interruption, cough, or wheeze. No dysarthria, facial droop, or pronator drift. HEENT: Normocephalic, atraumatic. PERRL. EOMI. No nystagmus, gaze paresis, anisocoria, miosis, mydriasis, hyphema, scleral injection, conjunctivitis, or pterygium. No otorrhea. No rhinorrhea. No pharyngeal erythema, edema, ulceration, or discharge. Neck: Supple, no stridor, bruit, or goiter. Jugular venous pressure is estimated at 3 cm above the sternal angle of Antoni, which is 5 cm above the level of the right atrium. Lymph: No pre-auricular, post-auricular, supraclavicular, infraclavicular, axillary, epitrochlear, or inguinal adenopathy. Chest: Symmetric rise and fall with respirations. Non-tender to palpation. Heart: Regular rate and rhythm. S1 and S2 noted. No S3 or S4 summation gallop noted. Grade II/ early systolic murmur @ LLSB without radiation to the carotids, axilla, or back, and which remains invariant in regards to the respiratory cycle. Lungs: Clear to auscultation and percussion. No audible expiratory wheeze, egophony, pectoriloquy, increase in tactile fremitus, or flatness/dullness to percussion at the bases. Abdomen: Soft, non-tender, non-distended. No rebound, guarding, High's sign, or organomegaly. Bowel sounds auscultated in all 4 quadrants. Pelvis: Soft, non-tender, non-distended. Extremities: No clubbing, cyanosis, or edema. 2+ pedal pulses bilaterally. Skin: No decubitus ulcer, exanthem, or enanthem. Neurology: Alert and oriented in regards to person, place, time, and situation. DTR+. 5/5 motor strength in all 4 extremities, both proximally and distally. No myoclonus, tremors, or tics. Urology: No nolan catheter. No diaper. No urethral discharge. Psych: Smiles appropriately. No flat affect. Results & Data Results & Data Vital Signs (Past 12 Hours) Vital Signs Temp Pulse Pulse Resp BP BP Pulse Ox 04/25/25 18:04 67 20 121/69 98 04/25/25 17:11 68 20 130/69 97 04/25/25 15:56 62 20 148/81 H 93 04/25/25 15:30 122/78 04/25/25 15:30 122/78 04/25/25 15:30 122/78 04/25/25 15:30 122/78 04/25/25 15:30 122/78 04/25/25 15:30 58 L 14 95 04/25/25 15:21 56 L 21 96 04/25/25 15:12 59 L 19 97 04/25/25 15:00 87 23 98 04/25/25 15:00 138/84 04/25/25 15:00 138/84 04/25/25 15:00 138/84 04/25/25 15:00 138/84 04/25/25 15:00 138/84 04/25/25 14:51 61 24 96 04/25/25 14:42 58 L 15 96 04/25/25 14:30 63 21 97 04/25/25 14:30 138/78 04/25/25 14:30 138/78 04/25/25 14:30 138/78 04/25/25 14:30 138/78 04/25/25 14:30 138/78 04/25/25 14:21 62 21 97 04/25/25 14:12 62 15 97 04/25/25 14:10 60 04/25/25 14:00 59 L 14 139/76 96 04/25/25 14:00 60 18 139/76 97 04/25/25 13:51 60 16 139/76 96 04/25/25 13:30 65 21 120/69 94 04/25/25 13:00 65 14 122/72 97 04/25/25 12:00 58 L 14 115/66 94 04/25/25 10:59 04/25/25 10:50 04/25/25 10:50 04/25/25 10:50 70 15 120/76 96 04/25/25 10:08 36.1 C L 73 18 105/61 93 O2 Del Method 04/25/25 18:04 Room Air 04/25/25 17:11 04/25/25 15:56 04/25/25 15:30 04/25/25 15:30 04/25/25 15:30 04/25/25 15:30 04/25/25 15:30 04/25/25 15:30 04/25/25 15:21 04/25/25 15:12 04/25/25 15:00 04/25/25 15:00 04/25/25 15:00 04/25/25 15:00 04/25/25 15:00 04/25/25 15:00 04/25/25 14:51 04/25/25 14:42 04/25/25 14:30 04/25/25 14:30 04/25/25 14:30 04/25/25 14:30 04/25/25 14:30 04/25/25 14:30 04/25/25 14:21 04/25/25 14:12 04/25/25 14:10 04/25/25 14:00 04/25/25 14:00 Room Air 04/25/25 13:51 04/25/25 13:30 04/25/25 13:00 Room Air 04/25/25 12:00 Room Air 04/25/25 10:59 Room Air 04/25/25 10:50 Room Air 04/25/25 10:50 Room Air 04/25/25 10:50 Room Air 04/25/25 10:08 Room Air Laboratory Results As above in the History of Present Illness. Diagnostic Findings As above in the History of Present Illness. Medications Administered As above in the History of Present Illness. Code Status & VTE Plan VTE Prophylaxis Plan VTE Prophylaxis will be ordered: Yes PG Care Time/CCT Total # of Minutes Spent Total Time Spent with Patient: Total time spent is greater than 50% in coordination of care (as documented) at patient's floor/unit and/or counseling patient: Coding Level of Care Code 38379 INT INP/OBS CARE 2MIN Diagnoses Dizziness R42 Dehydration E86.0 Time Spent (min) 49
[2025-04-25] MEDS: HEPARIN SOD 5,000 UNIT/0.5 ML VIAL SQ SCH (21:47)
[2025-04-25] MEDS: MECLIZINE HCL 25 MG TAB PO SCH (21:47)
--- NOTE | 2025-04-25 22:22 | Electrocardiogram Report ---
Test Reason : Blood Pressure : */* mmHG Vent. Rate : 66 BPM Atrial Rate : 66 BPM P-R Int : 214 ms QRS Dur : 74 ms QT Int : 384 ms P-R-T Axes : 34 47 73 degrees QTcB Int : 402 ms Sinus rhythm with 1st degree A-V block Otherwise normal ECG When compared with ECG of 13-Mar-2024 13:11, MS interval has increased Confirmed by Renard Jean ([id number]) on 04/25/2025 10:22:06 PM Referred By: Confirmed By: Renard Jean
[2025-04-26 08:02] VITALS: BP 125/76; PULSE 73; RESP 16; TEMP 97.9; O2SAT 94
[2025-04-26] MEDS: ASPIRIN 81 MG ECTAB PO SCH (08:02)
[2025-04-26] MEDS: LOSARTAN POTASSIUM 50 MG TAB PO SCH (08:02)
--- NOTE | 2025-04-26 09:34 | Ultrasound Report ---
Clinical History: Elevated d-dimer Technique: Venous ultrasound evaluation was performed utilizing grayscale, color Doppler and wave form evaluation. Images were also obtained with and without compression Findings: The bilateral common femoral, superficial femoral, popliteal, and visualized calf veins demonstrate normal anechoic lumens with full compressibility. Normal flow is seen on color Doppler images. Expected waveforms were produced with augmentation maneuvers Impression: No evidence of deep venous thrombosis Electronically signed by Neil Forman 04-26-2025 09:32 AM
--- NOTE | 2025-04-26 15:17 | Discharge Summary ---
Discharge Summary Date of Service April 26, 2025 Principal Dx & Hospital Course #1 = Principal Diagnosis Admission HPI Per Admitting Provider 80 years old male with PMH of FULL CODE @ home, obesity with BMI 33.4 (height 181.6 cm; weight 110.1 kg), former tobacco abuse with no subsequent diagnosis of COPD, not on home oxygen or home steroids, GERD on protonix 40mg PO daily, BPH on finasteride 5mg PO qpm and terazosin 5mg PO qhs, diabetic neuropathy on gabapentin 300mg PO daily, non-insulin dependent DM2 with HbA1c 6.4% (03/11/2025, 8:10am) on semaglutide 2mg SQ weekly, HTN on losartan 50mg PO daily and metoprolol succinate 50mg PO qpm, CAD s/p acute NSTEMI, s/p successful PCI of distal circumflex with 2.25 x 12 mm [place] drug-eluting stent (08/02/2023, 5:09pm, [facility] Interventional CARDS Dr. Dusty Pittman), now on ASA 81mg PO daily and evolocumab 140mg SQ q14 days, and intermittent dizziness on meclizine 25mg PO qpm, who reports: "I felt dizzy this morning (04/25/2025, 9:00am); the room was not spinning around me. I was not seeing double. 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 I know I am not 20 years old anymore. I am 80 years young. I feel fine now. Can I go home tomorrow morning?" Patient denies antecedent/coincident fevers, chills, diaphoresis, cough, wheeze, sore throat, hemoptysis, SOB/HOPKINS, chest pains, palpitations, pleurisy, nausea, vomiting, diarrhea, abdominal pain, pelvic pain, hematemesis, hematochezia, melena, hematuria, dysuria, frequency, urgency, headaches, lightheadedness, visual changes, hearing changes, weakness, falls, syncope, trauma, travel history, sick contacts, or food/drug ingestions novel or new. All other review of systems are reported as negative by the patient on observation date 04/25/2025. Patient subsequently drove himself from his home to [facility] ER to have his dizziness checked out. In [facility] ER bed #B2, patient was afebrile @ 36.1 degrees, HR 73, RR 18, BP 105/61, and O2 saturation 93% on room air (04/25/2025, 10:08am). Exam was noted for the absence of nystagmus, gaze paresis, anisocoria, miosis, mydriasis, hyphema, scleral injection, conjunctivitis, or pterygium. Patient remained wide awake and alert and with no dysarthria, facial droop, or pronator drift. Exam was completely unremarkable. Labs in [facility] ER bed #B2 included: WBC 9.36, N78 L8 M11 E1 B1, Hb 13.0, MCV 84.7, MCHC 33.5, platelet 206 (04/25/2025, 10:35am). Na 137, K 4.5, CO2 24, BUN 27, creatinine 1.28, GFR 55.88, glucose 110, Ca 9.3, AST 13, ALT 6, ALK PHOS 78, total bili 0.5 (04/25/2025, 10:35am). Troponin-I #1 3.0 pg/mL (04/25/2025, 10:35am). Troponin-I #2 2.6 pg/mL (04/25/2025, 4:24pm). BNP 77 pg/mL (04/25/2025, 4:24pm). Lactic acid #1 1.3 mmol/L (04/25/2025, 4:24pm). Procalcitonin #1 < 0.02 ng/mL (04/25/2025, 10:35am). TSH 3.650 uIU/mL (04/25/2025, 10:35am). U/A: LE-, nitrite- (04/25/2025, 5:53pm). D-dimer 3,540 ug/L (04/25/2025, 4:25pm). Additional testing in [facility] ER bed #B2 included: Portable CXR (04/25/2025, 10:11am): 1. No infiltrate, effusion, cardiomegaly, pulmonary vascular congestion, or pneumothorax (by my review). CTA head (04/25/2025, 10:11am): 1. No acute findings. 2. No significant arterial narrowing or occlusion seen at the brain. CTA neck (04/25/2025, 10:11am): 1. No acute findings. CTA chest (04/25/2025, 10:11am): 1. No pulmonary emboli identified. 2. No acute intrathoracic findings. Patient was subsequently placed in OBSERVATION on the hospitalist service @ [facility] on 04/25/2025 with the following diagnoses: 1. Dizziness of unclear etiology. 2. Acute dehydration with BUN:creatinine ratio > 20:1 (cf., BUN 27, creatinine 1.28, 04/25/2025, 10:35am). To address #1, patient was treated supportively with his home-scheduled meclizine 25mg PO qpm. Patient was also advised to abstain from physical labor such as installing house/roof trusses for [employer], or any other operation/outfit, for that matter, as patient's muscles are all 80 years old muscles, all worn-out and run-down. Patient concedes the point. To address #2, patient received 1 liter of 0.9% NS @ 999 mL/hr (04/25/2025, 10:56am), followed a cup of cool water without ice, a turkey sandwich with mayonnaise, and then a heart healthy supper. Patient subsequently reports that he feels "90% better today (04/26/2025) than when I came into the hospital yesterday (04/25/2025). I want to go home today (04/26/2025). Patient was subsequently discharged back to his home on 04/26/2025. Discharge Exam Constitutional General: Comfortable, coherent, cooperative. Wide awake and alert. Not confused, lethargic, or obtunded. Patient speaks in complete, fluent, and articulate sentences without pause, interruption, cough, or wheeze. No dysarthria, facial droop, or pronator drift. HEENT: Normocephalic, atraumatic. PERRL. EOMI. No nystagmus, gaze paresis, anisocoria, miosis, mydriasis, hyphema, scleral injection, conjunctivitis, or pterygium. No otorrhea. No rhinorrhea. No pharyngeal erythema, edema, ulceration, or discharge. Neck: Supple, no stridor, bruit, or goiter. Jugular venous pressure is estimated at 3 cm above the sternal angle of Antoni, which is 5 cm above the level of the right atrium. Lymph: No pre-auricular, post-auricular, supraclavicular, infraclavicular, axillary, epitrochlear, or inguinal adenopathy. Chest: Symmetric rise and fall with respirations. Non-tender to palpation. Heart: Regular rate and rhythm. S1 and S2 noted. No S3 or S4 summation gallop noted. Grade II/ early systolic murmur @ LLSB without radiation to the carotids, axilla, or back, and which remains invariant in regards to the respiratory cycle. Lungs: Clear to auscultation and percussion. No audible expiratory wheeze, egophony, pectoriloquy, increase in tactile fremitus, or flatness/dullness to percussion at the bases. Abdomen: Soft, non-tender, non-distended. No rebound, guarding, High's sign, or organomegaly. Bowel sounds auscultated in all 4 quadrants. Pelvis: Soft, non-tender, non-distended. Extremities: No clubbing, cyanosis, or edema. 2+ pedal pulses bilaterally. Skin: No decubitus ulcer, exanthem, or enanthem. Neurology: Alert and oriented in regards to person, place, time, and situation. DTR+. 5/5 motor strength in all 4 extremities, both proximally and distally. No myoclonus, tremors, or tics. Urology: No nolan catheter. No diaper. No urethral discharge. Psych: Smiles appropriately. No flat affect. Discharge Plan Discharge Items Patient Disposition: Home - Self-Care Reason For Visit: DIZZINESS Discharge Diagnosis: 1. Dizziness of unclear etiology, most likely due to overwork/exhaustion after installing house trusses for a roof in [place], [place] (04/25/2025, 9:00am to 1:30pm). 2. Acute dehydration with BUN:creatinine ratio > 20:1 (cf., BUN 27, creatinine 1.28, 04/25/2025, 10:35am). Condition on Discharge: Fair Activity: Resume your previous activity Lifting: Gradually increase as tolerated Bathing: No limitations Sexual Activity: When tolerated Exercise/Sports: Gradually increase as tolerated Driving/Machine Use: No limitations Weightbearing: Full weightbearing Non-emergency contact: Primary Care Provider Call non-emergency contact if: you have any medication questions Follow-up/Referrals: Alfredo Bradford MD [Primary Care Provider] - Diet: Carb Consistent or DM2 and Heart Healthy Addtl Attending Provider Instructions: See your PCP Dr. Alfredo Bradford within 5-7 days of hospital discharge for routine follow up visit. Pending Studies at Discharge: No Stand-Alone Forms: My [facility] Cookies, Smoking Cessation Medications and DC Order Prescriptions: Continued cyanocobalamin (vitamin B-12) [Vitamin B-12] 1,000 mcg tablet 1,000 mcg PO QAM Qty: 90 3RF Patient Comments: 04/25- otc unable to verify thiamine HCl (vitamin B1) [Vitamin B-1] 100 mg tablet 100 mg PO QAM 90 Days Qty: 90 3RF metoprolol succinate 50 mg tablet extended release 24 hr 50 mg PO PM Qty: 90 3RF Repatha SureClick 140 mg/mL pen injector 140 mg subcut .every 2 weeks Qty: 6 3RF pantoprazole 40 mg tablet,delayed release (DR/EC) 40 mg PO QAM Qty: 90 3RF losartan 50 mg tablet 50 mg PO DAILY Qty: 90 3RF naproxen 250 mg tablet 500 mg PO BID Qty: 180 3RF Ozempic 2 mg/dose (8 mg/3 mL) pen injector 2 mg subcut .weekly Qty: 3 11RF Patient Comments: filled 04/21 28 day supply fluticasone propionate [Allergy Relief (fluticasone)] 50 mcg/actuation spray,suspension 1 spray intranasal DAILY PRN (Reason: Allergy Symptoms) Patient Comments: 04/25-otc/no fill history unable to verify Rx Instructions: administer into each nostril once daily cholecalciferol (vitamin D3) 50 mcg (2,000 unit) capsule 2,000 unit PO QAM Patient Comments: 04/25- otc unable to verify [id number] oil 600-1,200 mg capsule 1 cap PO DAILY Patient Comments: 04/25- otc unable to verify (DME) OneTouch Ultra Test Strip See Rx Instructions .Route Qty: 50 1RF Rx Instructions: test once weekly meclizine 25 mg tablet 0 mg PO QPM Patient Comments: 04/25-otc/no fill history unable to verify. Original: 50 mg po qpm albuterol sulfate 90 mcg/actuation HFA aerosol inhaler 2 puff inhalation Q6H PRN (Reason: shortness of breath or wheezing) Qty: 6.7 0RF terazosin 5 mg Capsule 0 mg PO HS Patient Comments: 04/25- no fill history unable to verify finasteride [Proscar] 5 mg Tablet 0 mg PO QPM Patient Comments: 04/25- no fill history unable to verify Macular Health Formula 5-1-7.5 mg Capsule 1 tab PO QAM Patient Comments: 04/25- otc unable to verify aspirin [Sarah Low Dose Aspirin] 81 mg Tablet,Delayed Release (Dr/Ec) 81 mg PO QAM Patient Comments: 04/25- otc unable to verify zinc 50 mg Tablet 50 mg PO QAM Patient Comments: 04/25- otc unable to verify gabapentin [Neurontin] 300 mg capsule 300 mg PO UD Rx Instructions: PER PT: TAKES 300MG IN A.M, 300MG AT 3PM AND 600MG AT HS. semaglutide 1 mg/dose (4 mg/3 mL) pen injector 2 mg subcut UD Patient Comments: filled 03/29 28 day supply amoxicillin 500 mg capsule 2,000 mg PO DIRECTED PRN (Reason: dental appointment ) Patient Comments: 04/25- no fill history unable to verify Cinnamon Complex 2 tab PO QPM Patient Comments: 04/25- otc unable to verify acetaminophen 650 mg Tablet Extended Release 1,300 mg PO BID Patient Comments: 04/25- otc unable to verify Discontinued prednisone 20 mg tablet 10 mg PO DAILY Discharge Orders: Discharge Order (Routine); Ordered 04/26/25 Ordered By: Thomas Maynard Admission Data Admit Date/Time: 04/25/25 14:08 Attending Provider: Thomas Maynard Admit Provider: Thomas Maynard Primary Care Provider: Alfredo Bradford Other Providers: Thomas Maynard Hospital Stay Data Consultations 04/25/25 13:35 ED Decision to Admit Stat Diagnostic Imagining Performed 04/25/25 10:52 CT angio head wo/w Stat CT angio neck with con Stat 04/25/25 10:53 CT angio chest PE protocol Stat 04/26/25 08:02 US venous doppler LE BI Stat Pending Results Patient Have Any Pending Studies at Discharge: No Discharge Instructions Given to Patient (Per Discharging Provider) See your PCP Dr. Alfredo Bradford within 5-7 days of hospital discharge for routine follow up visit. Total Time Total Time Spent Total Time Spent (In Minutes): 35 minutes. Of this time period, 19 minutes were spent in coordinating patient's discharge. Coding Level of Care Code 19810 INP/OBS DISCH >30 MIN
== END 2025-04-26 12:49 | disposition home or self-care (01) ==
LOC: ED 09:55 → 3N 09:55